=== PATIENT | male | born 1950 | race Caucasian/White ===

== ENCOUNTER 2019-06-28 13:35 | Observation (INO) | payer MEDICARE, OTHER ==
[~2019-06-28 13:35] MED LIST: Acetaminophen 325 MG TAB PO PRN; Ondansetron ODT 4 MG TAB SL PRN; Ondansetron PF 4 MG/2 ML Vial IVP PRN
[2019-06-28] MEDS ORDERED: HYDROcodone/Acetaminophen 5/325 mg Tablet PO PRN (16:23)
[2019-06-28] MEDS ORDERED: HYDROcodone/Acetaminophen 7.5/325 mg Tablet PO PRN (16:23)
[2019-06-28] MEDS ORDERED: Loperamide HCl 2 MG CAP PO PRN (16:23)
[2019-06-28] MEDS ORDERED: Calcium Carbonate 500 MG ChewTAB PO PRN (16:23)
[2019-06-28] MEDS ORDERED: Bisacodyl 5 MG TAB PO PRN (16:23)
[2019-06-28 16:27] LABS: Troponin I 0.027 ng/mL (< 0.028)
[2019-06-28] MEDS ORDERED: Benzonatate 100 MG CAP PO PRN (16:27)
[2019-06-28] MEDS ORDERED: Melatonin 3 MG TAB PO PRN (16:27)
[2019-06-28] MEDS ORDERED: Labetalol HCl 100 MG/20 ML VIAL SLOW IVP PRN (16:27)
[2019-06-28] MEDS ORDERED: Docusate 100 MG CAP PO PRN (16:27)
[2019-06-28] MEDS ORDERED: diphenhydrAMINE 25 MG CAP PO PRN (16:27)
[2019-06-28 17:48] VITALS: BMI 19.9
--- NOTE | 2019-06-28 18:22 | PDOC.HHP ---
Hospitalist HPI - History of Present Illness Shortness of breath History of Present Illness: Very pleasant 69-year-old gentleman with past medical history of extensive tobacco use presents with shortness of breath. For the past couple weeks patient has had worsening lower extremity edema, for this he went to see his primary care physician who started him on Lasix and potassium which he has been on for about a week. After the patient did not see any significant improvement in his lower extremity edema he was concerned and came to the hospital for further evaluation. Patient is also scheduled to see a performance analyst around the first of July. Patient has no prior history of coronary disease, has never had heart failure before, has never had any issues with his heart and denies heart attack or stents. Patient denies ever having echocardiogram. Patient presented to [place] emergency department with shortness of breath requiring supplemental oxygen and was found to be hypokalemia with potassium of 2.2. Patient with elevated D dimer underwent CT scan of the chest which was found to be abnormal for a spiculated lesion in the left upper chest, and liver lesions as well concerning for metastatic disease. Patient started smoking prior to age 18 and quit in 2016, roughly 1.5 packs per day giving him a year history of 70 pack years. The patient was transferred to [facility] for higher level of care. I find the patient on the medical unit with telemetry he is sitting upright in the bed breathing comfortably on low-flow nasal cannula in no acute distress. Patient does get short of breath when he talks in long sentences. Patient states that his legs have gone down some and swelling. Patient is concerned about a horse voice. Patient admitted to the medical unit with telemetry for close management. Will request input from cardiology and oncology for further recommendations. Hospitalist ROS - Review of Systems All other systems reviewed; all pertinent +/- noted in HPI/Subj Hospitalist History - Past Medical History Source: patient, old records Cardiac: reports: no pertinent history Pulmonary: reports: no pertinent history SHRUB GROWER: reports: no pertinent history Gastrointestinal: reports: no pertinent history Heme/Onc: reports: no pertinent history Hepatobiliary: reports: no pertinent history Psych: reports: no pertinent history Musculoskeletal: reports: no pertinent history Rheumatologic: reports: no pertinent history Infectious Disease: reports: no pertinent history ENT: reports: no pertinent history Renal/: reports: no pertinent history Endocrine: reports: no pertinent history Dermatology: reports: no pertinent history - Past Surgical History Past Surgical History: reports: Appendectomy - Family History Family History: reports: hypertension - Social History Smoking Status: Former smoker Tobacco Type: cigarettes (70 pack year history) Alcohol: reports: None Drugs: reports: none Living Situation: Alone Domestic Violence: Negative Activity level: independent ambulation - Exam General Appearance: NAD, awake alert General - other findings: Thin Eye: PERRL ENT: normocephalic atraumatic, moist mucosa Neck: supple, symmetric, no lymphadenopathy Heart: no murmur, no gallops, no rubs Respiratory: CTAB, no wheezes, no ronchi, normal chest expansion, no tachypnea, rales (few faint) Gastrointestinal: non-tender, no guarding, no rigidity Extremities: 2+ LE edema Skin: no rashes Neurological: cranial nerve grossly intact, no focal deficits Musculoskeletal: generalized weakness Psychiatric: normal affect, normal behavior, A&O x 3 Hospitalist Results - Labs Lab results: Troponin I 0.027 ng/mL (< 0.028) 06/28/19 15:45 Hospitalist H&P A/P - Problem (1) Lung mass Code(s): R91.8 - OTHER NONSPECIFIC ABNORMAL FINDING OF LUNG FIELD Status: Acute (2) Liver mass Code(s): R16.0 - HEPATOMEGALY, NOT ELSEWHERE CLASSIFIED Status: Acute (3) Shortness of breath Code(s): R06.02 - SHORTNESS OF BREATH Status: Acute (4) Acute respiratory failure Code(s): J96.00 - ACUTE RESPIRATORY FAILURE, UNSP W HYPOXIA OR HYPERCAPNIA Status: Acute (5) Tobacco abuse Code(s): Z72.0 - TOBACCO USE Status: Acute (6) Hypokalemia Code(s): E87.6 - HYPOKALEMIA Status: Acute (7) Pericardial effusion Code(s): I31.3 - PERICARDIAL EFFUSION (NONINFLAMMATORY) Status: Acute (8) CHF (congestive heart failure) Code(s): I50.9 - HEART FAILURE, UNSPECIFIED Status: Acute (9) Leg edema Code(s): R60.0 - LOCALIZED EDEMA Status: Acute - Plan Plan: Plan: Admit to medical unit with telemetry cardiology consultation, recommendations appreciated oncology consultation, recommendations appreciated supplemental oxygen to maintain O2 saturation greater than 88% IV Lasix echocardiogram continuous telemetry to monitor for arrhythmia repeat chest imaging in the a.m. with the chest x-ray request full CT chest report from [place] left upper chest spiculated lesion, patient will need tissue biopsy to confirm diagnosis. Liver would be a preferable target for nodules concerning for metastatic disease patient started smoking before he was 18, 1.5 pack per day and quit in 2016 giving him a [address] scan chest negative for PE, positive for small pericardial effusion, rapid bedside ultrasound per ED physician was without tamponade physiology patient will likely require outpatient follow-up with oncology in the near future, he is interested in aggressive measures the patient being on Lasix states that he is only able to "dribble urine" and has difficulty getting a good stream of urine, has not been formally diagnosed with BPH in the past start Flomax patient's father had a history of prostate cancer throat lozenge for horse voice blood pressure control blood sugar control G.I. prophylaxis DVT prophylaxis Disposition: Prognosis guarded, concerns for late stage malignancy. Will need tissue sample for definitive diagnosis. Patient wishing to be full code and wants all aggressive measures.
[2019-06-28 18:46] LABS: Troponin I 0.029 ng/mL (< 0.028)
[2019-06-28] MEDS ORDERED: Potassium Chloride 20 MEQ TAB PO SCH (20:30)
[2019-06-28] MEDS ORDERED: Potassium Chloride 40 MEQ in Sodium Chloride 0.9% 250 ML 250 ML IVPB SCH (21:00)
[2019-06-28 21:15] LABS: BUN (Urea Nitrogen) 21 mg/dL (8.4-25.7); Calc. Creatinine Clearance 88 mL/min (70-130); Calcium 8.8 mg/dL (7.8-10.44); Estimated GFR-MDRD Greater than 90; Glucose 78 mg/dL (80-115); Magnesium 2.3 mg/dL (1.6-2.6)
[2019-06-28 21:24] LABS: Anion Gap 19 mmol/L (10-20); Carbon Dioxide 35 mmol/L (23-31); Chloride 96 mmol/L (98-107); Sodium 147 mmol/L (136-145)
[2019-06-28] MEDS: Famotidine 20 MG TAB PO SCH (23:00)
[2019-06-28] MEDS: Heparin 5,000 UNITS/ML VIAL SC SCH (23:00)
[2019-06-28] MEDS: Tamsulosin HCl 0.4 MG CAP PO SCH (23:01)
[2019-06-29] MEDS: Potassium Chloride 20 MEQ in Premix Bag 1 BAG IVPB SCH ×2 (05:39→07:46)
[2019-06-29] MEDS ORDERED: Furosemide 40 MG/4 ML VIAL SLOW IVP SCH (06:00)
[2019-06-29 06:01] LABS: Anion Gap 14 mmol/L (10-20); BUN (Urea Nitrogen) 26 mg/dL (8.4-25.7); Calc. Creatinine Clearance 80 mL/min (70-130); Calcium 9.1 mg/dL (7.8-10.44); Carbon Dioxide 36 mmol/L (23-31); Chloride 99 mmol/L (98-107); Estimated GFR-MDRD Greater than 90; Glucose 118 mg/dL (80-115); Potassium 3.8 mmol/L (3.5-5.1); Sodium 145 mmol/L (136-145)
[2019-06-29] MEDS: Famotidine 20 MG TAB PO SCH ×2 (08:07→20:09)
[2019-06-29] MEDS: Potassium Chloride 20 MEQ TAB PO SCH ×2 (08:20→16:00)
[2019-06-29] MEDS: Heparin 5,000 UNITS/ML VIAL SC SCH ×2 (08:21→15:54)
--- NOTE | 2019-06-29 08:31 | RAD ---
CHEST ONE VIEW: HISTORY: Generalized weakness. Low potassium. COMPARISON: 05/23/2011 FINDINGS: Heart size is within normal limits. There are some minimal patchy parenchymal changes in the left upp er lobe, in a somewhat linear distribution. No significant pleural effusion. There is some fullness o f the right paratracheal region, more prominent than on the prior exam, Possibly some type of adenopa thy certainly cannot be excluded. IMPRESSION: 1. Somewhat linear parenchymal change in the left upper lobe raising the possibility of pneumonia, 2. Prominent right paratracheal soft tissue fullness, possibly related to some adenopathy or underlyi ng mass. Consider non-emergent follow-up chest CT scan for further assessment. POS: SJNOHEMY
[2019-06-29] MEDS ORDERED: Prevnar 13-Val Conj/PF 0.5 ML SYRINGE IM ONE (09:00)
--- NOTE | 2019-06-29 14:13 | ULT ---
EXAM: Bilateral lower extremity venous Doppler HISTORY: Bilateral lower extremity edema. FINDINGS: Grayscale, color-flow, Doppler evaluation, spectral analysis of the bilateral lower extremity venous structures is performed with 2-D imaging. The bilateral common femoral, superficial femoral, popliteal, posterior tibial, proximal greater saphenous and profunda femoral veins are imaged. There is normal luminal compressibility, flow, and augmentation in the visualized deep venous structu res of the bilateral lower extremities. Minimal subcutaneous edema is seen in distal bilateral lower extremities. IMPRESSION: No evidence of a deep vein thrombosis in the visualized deep venous structures bilateral lower extrem ities.
--- NOTE | 2019-06-29 14:33 | PDOC.HOSPP ---
- Subjective Subjective: Seen and examined. Overall feeling better. Breathing comfortably on room air. Still with lower extremity edema that he states has improved. He has been "urinating a lot" with IV Lasix. Discussed liver biopsy, time was given for questions, all answered in detail. Patient is happy with plan of care. - Objective Vital Signs & Weight: Vital Signs (12 hours) Temp Pulse Resp BP Pulse Ox 06/29/19 12:00 97.5 F L 94 20 137/78 97 06/29/19 08:00 98.1 F 101 H 18 135/77 95 06/29/19 03:03 98 F 81 20 129/73 92 L Weight Weight 143 lb I&O: 06/28/19 06/29/19 06/30/19 06:59 06:59 06:59 Intake Total 1180 Output Total 500 500 Balance 680 -500 Result Diagrams: 06/29/19 05:01 Radiology Reviewed by me: Yes Hospitalist ROS - Review of Systems All other systems reviewed; all pertinent +/- noted in HPI/Subj - Medication Medications: Active Medications Generic Name Dose Route Start Last Admin Trade Name Freq PRN Reason Stop Dose Admin Benzonatate 100 mg 06/28/19 16:27 06/29/19 08:29 Tessalon PO 100 mg Q4H PRN Administration Cough Famotidine 20 mg 06/28/19 21:00 06/29/19 08:07 Pepcid PO 20 mg BID RAGHAV Administration Heparin Sodium (Porcine) 5,000 units 06/28/19 21:00 06/29/19 08:21 Heparin SC 5,000 units TID RAGHAV Administration Potassium Chloride 20 meq 06/29/19 08:00 06/29/19 08:20 K-Dur PO 20 meq BID-WM RAGHAV Administration Sodium Chloride 10 ml 06/29/19 09:00 06/29/19 08:21 Flush - Normal Saline IVF 10 ml Q12HR RAGHAV Administration Tamsulosin HCl 0.4 mg 06/28/19 21:00 06/28/19 23:01 Flomax PO 0.4 mg HS RAGHAV Administration - Exam General Appearance: NAD, awake alert Eye: PERRL ENT: normocephalic atraumatic, moist mucosa Neck: supple, symmetric, no lymphadenopathy Heart: RRR, no murmur, no gallops, no rubs, normal peripheral pulses Respiratory: no wheezes, no ronchi, normal chest expansion, no tachypnea, rales Gastrointestinal: soft, non-tender, no guarding, no rigidity Extremities: 2+ LE edema Skin: no lesions, no rashes Neurological: cranial nerve grossly intact, no focal deficits Musculoskeletal: normal strength, no muscle wasting Psychiatric: normal affect, normal behavior, A&O x 3 Hosp A/P (1) Lung mass Code(s): R91.8 - OTHER NONSPECIFIC ABNORMAL FINDING OF LUNG FIELD Status: Acute (2) Liver mass Code(s): R16.0 - HEPATOMEGALY, NOT ELSEWHERE CLASSIFIED Status: Acute (3) Shortness of breath Code(s): R06.02 - SHORTNESS OF BREATH Status: Acute (4) Acute respiratory failure Code(s): J96.00 - ACUTE RESPIRATORY FAILURE, UNSP W HYPOXIA OR HYPERCAPNIA Status: Acute (5) Tobacco abuse Code(s): Z72.0 - TOBACCO USE Status: Acute (6) Hypokalemia Code(s): E87.6 - HYPOKALEMIA Status: Acute (7) Pericardial effusion Code(s): I31.3 - PERICARDIAL EFFUSION (NONINFLAMMATORY) Status: Acute (8) CHF (congestive heart failure) Code(s): I50.9 - HEART FAILURE, UNSPECIFIED Status: Acute (9) Leg edema Code(s): R60.0 - LOCALIZED EDEMA Status: Acute - Plan Plan: medical unit with telemetry cardiology consultation, recommendations appreciated oncology consultation, recommendations appreciated oncology recommending liver biopsy in the a.m., will need tissue sample for definitive diagnosis to establish treatment plan NPO past midnight supplemental oxygen to maintain O2 saturation greater than 88% IV Lasix echocardiogram continuous telemetry to monitor for arrhythmia chest x-ray reviewed CT scan report in the paper chart from [place] left upper chest speculated lesion liver nodules concerning for metastatic disease patient with 70 pack year history of tobacco abuse, quit [address] scan of the chest negative for pulmonary embolism, positive for small pericardial effusion, rapid bedside ultrasound per emergency department physician was without tamponade physiology patient urinating well with the help of Flomax patient's father has a history of prostate cancer throat lozenge for horse voice blood pressure control blood sugar control G.I. prophylaxis DVT prophylaxis disposition: prognosis guarded, concern for late stage malignancy. Will need tissue biopsy for definitive diagnosis and plan of care. Patient wishing to be a full code and wants all aggressive measures. He is interested to chemotherapy , radiation, or immunotherapy as recommended by oncologist.
--- NOTE | 2019-06-29 14:58 | CON ---
DATE OF CONSULTATION: HISTORY OF PRESENT ILLNESS: The patient is an unfortunate 69-year-old gentleman who presented with dyspnea and lower extremity swelling. He recently noticed that his legs were swelling. He went to a primary care physician who put him on antibiotics and diuretics. He presented to the emergency room yesterday with increasing shortness of breath. The patient denied having any chest discomfort. PAST MEDICAL HISTORY: None. PAST SURGICAL HISTORY: Appendectomy. SOCIAL HISTORY: Former smoker. FAMILY HISTORY: Positive family history of heart disease. Father had coronary artery bypass surgery. ALLERGIES: NONE. MEDICATIONS: 1. Lasix 20 b.i.d. 2. Aspirin 81 daily. 3. Potassium 10 daily. REVIEW OF SYSTEMS: Ten-point system, otherwise, unremarkable. PHYSICAL EXAMINATION: GENERAL: Ill-appearing gentleman. VITAL SIGNS: Blood pressure 135/77, heart rate is 110. NECK: Full. LUNGS: Diminished breath sounds bilaterally. HEART: Regular rate and rhythm. Normal S1, S2. No murmurs. ABDOMEN: Nondistended. EXTREMITIES: Show moderate bilateral edema. VASCULAR: Radial pulses are 2+. LABORATORY DATA: Sodium 145, potassium 3.8, chloride 99, bicarbonate 36, BUN 26 , and creatinine is 0.8. Hemoglobin is 12.7, hematocrit 38.9. BNP was 302. EKG : normal sinus rhythm with left ventricular hypertrophy and Q-waves suggestive of a previous inferior infarct. CT scan revealed evidence of a pulmonary mass and several lesions in the liver. IMPRESSION: 1. Shortness of breath. 2. Metastatic carcinoma. 3. History of tobacco abuse. PLAN: This unfortunate gentleman appears to have metastatic carcinoma. He is to undergo a biopsy tomorrow. From a cardiac standpoint, he did not appear to be in congestive heart failure. We will check the patient's echocardiogram to evaluate his left ventricular function and a noted pericardial effusion. We will also order a venous ultrasound to rule out DVT. I will follow this patient with you through his hospitalization. Job ID: [id number] [facility]
[2019-06-29] MEDS: Cepastat Lozenges 1 LOZ PO PRN (17:29)
[2019-06-29] MEDS: Tamsulosin HCl 0.4 MG CAP PO SCH (20:09)
[2019-06-30 05:18] LABS: INR-International Normal Ratio 1.2
[2019-06-30] MEDS: Potassium Chloride 20 MEQ TAB PO SCH ×2 (08:37→16:36)
[2019-06-30] MEDS: Famotidine 20 MG TAB PO SCH ×2 (08:37→21:28)
[2019-06-30] MEDS ORDERED: Midazolam HCl 2 mg/2 ml Vial ONE (09:04)
[2019-06-30] MEDS ORDERED: Sodium Bicarbonate 2.5 MEQ/5 ML VIAL ONE (09:04)
[2019-06-30] MEDS ORDERED: Fentanyl 100 MCG/2 ML VIAL ONE (09:04)
--- NOTE | 2019-06-30 10:49 | CT ---
Exam: CT-GUIDED PERCUTANEOUS BIOPSY OF THE LIVER: HISTORY: Multiple hepatic masses. COMPARISON: Outside CT performed at [facility] 06/29/2019. FINDINGS: Successful CT-guided biopsy of a right hepatic lobe mass. A total of two 18-gauge core biopsy samples were obtained. Lesional tissue was present. No immediate or postprocedural complications. TECHNIQUE: Consent obtained to perform a CT-guided biopsy of a right hepatic lobe mass. Patient abdomen was prep ped and draped in a sterile fashion. 1% lidocaine, buffered with sodium bicarbonate was used for local anesthesia. Under CT guidance, a 17-gauge metallic trocar was advanced into the right hepatic l obe. Through the metallic trocar, a total of two 18-gauge core biopsy samples were obtained. Lesional tissue was present. Patient tolerated the procedure well. No immediate or postprocedural com plications. Postprocedure CT demonstrated changes compatible with biopsy. IMPRESSION: Successful CT-guided biopsy. Final pathologic diagnosis is pending. Transcribed Date/Time: 06/30/2019 11:11 AM
[2019-06-30] MEDS: Cepastat Lozenges 1 LOZ PO PRN (21:28)
[2019-06-30] MEDS: Tamsulosin HCl 0.4 MG CAP PO SCH (21:28)
--- NOTE | 2019-06-30 21:32 | CON ---
DATE OF CONSULTATION: REASON FOR CONSULT: Metastatic disease. HISTORY OF PRESENT ILLNESS: Mr. Ojeda is a 69-year-old gentleman who presented to the [place] with lower extremity edema x3 weeks. He also had hoarseness of breath that started around the same time. He has been having difficulty urinating, some shortness of breath, and increasing cough. In the emergency room, he underwent a chest x-ray, which showed a nodular density in the left upper lobe. He then underwent a CT scan. There was a 6.2 x 3.2 conglomeration of lymph nodes in the subcarinal region. There was a 5.1 x 2 x 1.6 left upper lobe spiculated mass. There was a 2.7 cm lesion in the right lobe of the thyroid. There was a liver mass that is poorly incompletely seen, so he underwent a CT of the abdomen and pelvis. In the left lobe, there was a 13.1 x 7.7 lesion and in the right liver lobe there was a 15 x 11.8 lesion. There was a right adrenal nodule measuring 2.6 and 2 other separate adrenal nodules. There are enlarged periaortic lymph nodes. There is trace free fluid in the upper abdomen. The patient was transferred to this facility for further workup. He underwent a liver biopsy this morning. He has a 35-bvew-ocda history of smoking, quit in 2016. He denies any hemoptysis or weight loss. No night sweats. He had a colonoscopy over 15 years ago and never returned. On this admission, he has had a negative venogram and an echocardiogram which showed diastolic dysfunction with preserved EF. PAST MEDICAL HISTORY: Tobacco use. PAST SURGICAL HISTORY: Appendectomy. ALLERGIES: NO KNOWN DRUG ALLERGIES. HOME MEDICATIONS: 1. Ecotrin 81 mg daily. 2. Lasix 20 mg b.i.d. 3. Potassium 10 mEq daily. 4. Multivitamin. FAMILY HISTORY: No history of cancer. SOCIAL HISTORY: He is single, lives alone. No current alcohol, tobacco, or illicit drug use. He had 70-pack history of smoking. REVIEW OF SYSTEMS: A 10-point review of systems is negative except for noted in HPI. PHYSICAL EXAMINATION: VITAL SIGNS: Temperature is 97.9, pulse is 80, respiratory rate 24, blood pressure is 140/71. He is 94% on room air. GENERAL: This is a thin male, in no acute distress. HEENT: Normocephalic, atraumatic. Pupils are equal and reactive to light. NECK: Supple. CV: Regular rate and rhythm. LUNGS: He has expiratory wheezes throughout. ABDOMEN: Distended. He has a palpable liver. Bowel sounds are positive. EXTREMITIES: He has 2 to 3+ bilateral lower extremity edema. SKIN: No rash. HEMATOLOGICAL: No petechiae or purpura. NEUROLOGICAL: Nonfocal. PERTINENT LABS AND X-RAYS: WBCs are 10.5, hemoglobin 12.7, hematocrit 38.9, platelet count is 244,000. He has 89% neutrophils, 6% lymphs. BNP is 302. Sodium 146, potassium 2.2, chloride 98, CO2 is 44, BUN is 24, creatinine 1. Serum total protein is 6.5, albumin 3, globulin 3.5, calcium 9, bilirubin 1, AST is 83, ALT is 96, alkaline phosphatase is 155. Magnesium 2.1. Radiology: Per HPI. ASSESSMENT: Metastatic disease, likely stage IV lung cancer. DISCUSSION: The patient had a liver biopsy this morning. Path is currently pending. He states he is at his baseline and denies any significant shortness of breath. He would like to go home tomorrow morning and to follow up in our clinic in the outpatient setting. We discussed briefly treatment options including chemoimmunotherapy with or without radiation. He will follow up in our clinic next Sunday and likely have a PET scan in the outpatient setting. Thank you for the consult. We will be happy to care for this pleasant gentleman. Job ID: [id number] [facility]
--- NOTE | 2019-06-30 21:38 | PDOC.HOSPP ---
- Subjective Encounter Date: 06/30/19 Subjective: Feels ok. Tolerated the biopsy well. No other complaints. Breathing is at baseline. - Objective Vital Signs & Weight: Vital Signs (12 hours) Temp Pulse Resp BP BP Pulse Ox 06/30/19 20:00 98.1 F 84 16 139/69 95 06/30/19 16:28 97.8 F 81 20 133/73 97 06/30/19 12:01 97.9 F 80 24 H 140/71 94 L 06/30/19 10:10 97.8 F 80 17 146/72 H 93 L Weight Admit Weight 143 lb Weight 143 lb I&O: 06/29/19 06/30/19 07/01/19 06:59 06:59 06:59 Intake Total 1180 1430 480 Output Total 500 1650 425 Balance 680 -220 55 Result Diagrams: 06/29/19 05:01 Hospitalist ROS - Medication Medications: Active Medications Generic Name Dose Route Start Last Admin Trade Name Freq PRN Reason Stop Dose Admin Benzonatate 100 mg 06/28/19 16:27 06/29/19 08:29 Tessalon PO 100 mg Q4H PRN Administration Cough Famotidine 20 mg 06/28/19 21:00 06/30/19 21:28 Pepcid PO 20 mg BID RAGHAV Administration Potassium Chloride 20 meq 06/29/19 08:00 06/30/19 16:36 K-Dur PO 20 meq BID-WM RAGHAV Administration Sodium Chloride 10 ml 06/29/19 09:00 06/30/19 21:28 Flush - Normal Saline IVF 10 ml Q12HR RAGHAV Administration Tamsulosin HCl 0.4 mg 06/28/19 21:00 06/30/19 21:28 Flomax PO 0.4 mg HS RAGHAV Administration Throat Lozenges 1 montserrat 06/28/19 18:13 06/30/19 21:28 Cepastat Lozenges PO 1 montserrat Q2H PRN Administration Sore Throat - Exam General Appearance: NAD, awake alert ENT - other findings: Hoarse voice. Heart: RRR, no murmur, no gallops, no rubs, normal peripheral pulses Respiratory: CTAB, no wheezes, no rales, no ronchi, normal chest expansion, no tachypnea, normal percussion Gastrointestinal: soft, non-tender, non-distended, normal bowel sounds, no palpable masses, no hepatomegaly, no splenomegaly, no bruit Extremities: 1+ LE edema Skin: normal turgor Musculoskeletal: normal tone Psychiatric: normal affect, normal behavior, A&O x 3 Hosp A/P (1) Leg edema Code(s): R60.0 - LOCALIZED EDEMA Status: Acute (2) Liver mass Code(s): R16.0 - HEPATOMEGALY, NOT ELSEWHERE CLASSIFIED Status: Acute (3) Lung mass Code(s): R91.8 - OTHER NONSPECIFIC ABNORMAL FINDING OF LUNG FIELD Status: Acute (4) Shortness of breath Code(s): R06.02 - SHORTNESS OF BREATH Status: Acute (5) Tobacco abuse Code(s): Z72.0 - TOBACCO USE Status: Acute (6) Hypokalemia Code(s): E87.6 - HYPOKALEMIA Status: Acute (7) Pericardial effusion Code(s): I31.3 - PERICARDIAL EFFUSION (NONINFLAMMATORY) Status: Acute - Plan Doing well. Long discussion regarding the likely diagnosis and prognosis. He will not need to stay in the hospital awaiting the biopsy results. He will need further workup and treatment at the onc clinic. Still not completely sure why he has the edema in the LE's. Has some mild diastolic dysfunction and his liver function is not bad considering the lesions. May benefit from diuresis if it becomes more severe.
[2019-07-01] MEDS: Potassium Chloride 20 MEQ TAB PO SCH (08:52)
[2019-07-01] MEDS: Famotidine 20 MG TAB PO SCH (08:53)
[2019-07-01 11:38] VITALS: BP 154/74; TEMP 98
--- NOTE | 2019-07-02 14:00 | DIS ---
DATE OF ADMISSION: 06/28/2019 DATE OF DISCHARGE: 07/01/2019 DISCHARGE DIAGNOSES: 1. Acute respiratory failure with hypoxia. 2. Lung mass. 3. Metastatic disease to the liver. 4. Shortness of breath. 5. Tobacco abuse. 6. Hypokalemia. 7. Pericardial effusion. 8. Peripheral edema. 9. Acute diastolic congestive heart failure. HISTORY OF PRESENT ILLNESS: This patient is a 69-year-old male, who developed some lower extremity edema, sought care through his primary care provider when not getting relieved; however, became short of breath and presented to the emergency department, had an elevated D-dimer and had a CT of the chest, which did not reveal pulmonary embolus, but did reveal spiculated lesion and apparent metastatic disease to the liver. The patient was subsequently transferred to our facility and admitted. HOSPITAL COURSE: The patient had consultation with Cardiology, who felt the patient did not have significant decompensation of heart failure. Lower extremity venous Doppler was obtained, which showed no evidence of DVT. Echocardiogram was obtained, which revealed an EF of 55% to 60% with evidence of diastolic dysfunction. He had CT-guided biopsy of the liver lesion and consultation by Oncology, which recommended outpatient followup in the clinic with PET scan. The patient tolerated the biopsy well, had no further evidence of complications, was able to get up and ambulate around the hospital well without supplemental oxygen and therefore was felt to be stable for discharge to home. PHYSICAL EXAMINATION: VITAL SIGNS: On the day of discharge; temperature is 98.0, pulse 90, respirations 16, O2 saturation 94% on room air, and blood pressure 154/74. GENERAL: He is awake, alert, pleasant, cooperative. HEART: Regular rate and rhythm without murmurs. LUNGS: Clear bilaterally with no wheezes or rales. ABDOMEN: Soft, nontender. The liver was palpable and enlarged, extending past the midline on the left to near the nipple line and it felt a bit nodular on the patient's left-sided extension of the liver. EXTREMITIES: Had persistent 1+ pitting edema. DISPOSITION: The patient was discharged to home in stable condition. DIET: He is to have an unrestricted diet. ACTIVITY: As tolerated. MEDICATIONS: He will be on; 1. Tamsulosin 0.4 mg at bedtime. 2. Aspirin 81 mg daily. 3. Potassium 10 mEq daily. 4. Lasix 20 mg b.i.d. 5. Multivitamin one p.o. daily. DISCHARGE INSTRUCTIONS: He is to follow up with Clark Aguila and Dr. Ocampo at the Oncology Clinic on 07/06 at 1:45 p.m. He can return to the hospital at anytime should he have the need to do so. TIME SPENT: Discharge activities were greater than 30 minutes. Job ID: [id number]
--- NOTE | 2019-07-02 14:04 | CT ---
Exam: CT-GUIDED PERCUTANEOUS BIOPSY OF THE LIVER: HISTORY: Multiple hepatic masses. COMPARISON: Outside CT performed at [facility] 06/29/2019. FINDINGS: Successful CT-guided biopsy of a right hepatic lobe mass. A total of two 18-gauge core biopsy samples were obtained. Lesional tissue was present. No immediate or postprocedural complications. TECHNIQUE: Consent obtained to perform a CT-guided biopsy of a right hepatic lobe mass. Patient abdomen was prep ped and draped in a sterile fashion. 1% lidocaine, buffered with sodium bicarbonate was used for local anesthesia. Under CT guidance, a 17-gauge metallic trocar was advanced into the right hepatic l obe. Through the metallic trocar, a total of two 18-gauge core biopsy samples were obtained. Lesional tissue was present. Patient tolerated the procedure well. No immediate or postprocedural com plications. Postprocedure CT demonstrated changes compatible with biopsy. IMPRESSION: Successful CT-guided biopsy. Final pathologic diagnosis is pending. Transcribed Date/Time: 07/02/2019 2:03 PM
--- NOTE | 2019-07-03 08:55 | PQF ---
KENIA THOMPSON DAVID R MD [id number] CLINICAL DOCUMENTATION CLARIFICATION FORM: POST DISCHARGE Addendum to original discharge summary date: ____ Late entry note date: __ DATE:07/03/2019 ATTN: Hernandez Cortes Please exercise your independent, professional judgment in responding to the clarification form. Clinical indicators are provided on the bottom of this form for your review Final Diagnosis on the Pathology report: Metastatic Small cell carcinoma Based on the pathological findings of Metastatic Small cell carcinoma, is this a confirmed diagnosis for this patient? [ ] Yes, this is a secondary diagnosis for this patient [x ] Other (additional comments): This result was not available during the patient's admission. [ ] Unable to determine For continuity of documentation, please document condition throughout progress notes and discharge summary. Thank You. CLINICAL INDICATORS - SIGNS/ SYMPTOMS / LABS / RESULTS AND LOCATION IN MR H&P p3 06/27 Lung mass H&P p3 06/27 Liver mass H&P p3 06/27 Prognosis guarded, concerns for late malignancy Onco consult p2 06/29 metastatic disease, likely stage IV lung cancer Pathology Report Morphology and immuno profile support the diagnosis of small cell carcinoma Consult p2 06/28 CT scan reviled evidence of a pulmonary mass and several lesions in the liver RISK FACTORS / RESULTS AND LOCATION IN MR H&P p1 06/27 69 year-old Male H&P p24/18 Former Smoker H&P p3 06/27 Acute respirator Failure H&P p3 06/27 Pericardial effusion TREATMENTS / RESULTS AND LOCATION IN MR MAR 06/27 Tessalon 100mg oral MAR 06/27 IVF NS 1L MAY 13 Cepastat Lozenges 1loz oral Liver Biopsy 06/29 Oncology Consult 06/29 Aury Garcia Chest X-ray 06/27 (This form is maintained as a part of the permanent medical record) 2014 [email or web address]. All Rights Reserved [email or web address]
== END 2019-07-01 13:31 | disposition home or self-care (01) ==
LOC: 2NO 14:44 → INTOOBSV 14:44
PROVIDERS: ADMIT Internal Medicine; ATTEND Internal Medicine
PROC: 0FB13ZX Excision of Right Lobe Liver, Percutaneous Approach, Diagnostic (ICD-10-PCS; principal; 2019-07-01)
DX: C78.7 Secondary malignant neoplasm of liver and intrahepatic bile duct (principal); C80.1 Malignant (primary) neoplasm, unspecified; J96.01 Acute respiratory failure with hypoxia; E87.6 Hypokalemia; I31.3 Pericardial effusion (noninflammatory); R60.0 Localized edema; I50.31 Acute diastolic (congestive) heart failure; R91.8 Other nonspecific abnormal finding of lung field; Z87.891 Personal history of nicotine dependence; Z79.82 Long term (current) use of aspirin; Z79.899 Other long term (current) drug therapy
CPT/HCPCS: 36415; 47000; 71045; 77012; 80048; 83735; 84484; 85610; 88307; 88333; 88334; 88341; 88342; 88360; 93306; 93970; G0378; J1644; J1940; J2250; J3010; J3480; J7050

== ENCOUNTER 2019-07-05 16:43 | Inpatient (IN) | payer MEDICARE, OTHER ==
[~2019-07-05 16:43] MED LIST changes: -Acetaminophen 325 MG TAB PO PRN; +Iopamidol-370 76% 500 ML 1 ML ONE; -Ondansetron ODT 4 MG TAB SL PRN; -Ondansetron PF 4 MG/2 ML Vial IVP PRN
[2019-07-05] MEDS ORDERED: Cefepime 2 GM VIAL ONE (17:16)
[2019-07-05] MEDS ORDERED: Vancomycin 1.5 GRAM/300 ML BAG 1.5 GM in Premix Bag 1 BAG IVPB SCH (17:30)
[2019-07-05 17:46] LABS: #Lymphocytes 0.7 thou/uL (1.20-3.40); #Monocytes 0.4 thou/uL (0.11-0.59); #Neutrophils 11.8 thou/uL (1.40-6.50); %Basophils 0.2 % (0.0-1.0); %Eosinophils 0.2 % (0.0-10.0); %Lymphocytes 5.3 % (21.0-51.0); %Monocytes 3.2 % (0.0-10.0); Hemoglobin 9.8 g/dL (14.0-18.0); Mean Platelet Volume 7.9 fL (7.4-10.4); Platelet Count 180 thou/uL (130-400); RBC Distribution Width 14.7 % (11.5-14.5); Red Blood Cell (RBC) Count 2.98 mill/uL (4.70-6.10); White Blood Cell (WBC) Count 12.9 thou/uL (4.8-10.8)
--- NOTE | 2019-07-05 17:50 | RAD ---
Exam: Chest one view HISTORY:Dyspnea. Comparison: 06/29/2019, 05/23/2011 FINDINGS: Cardiac silhouette: Normal Mediastinum: Persistent increased soft tissue density along the right paratracheal region. Aorta: Unremarkable Pulmonary vessels: Normal Costophrenic angles: Clear LUNGS: Persistent opacification in the left upper lobe. Masslike opacity does appear to be present, i ncompletely evaluated. Pneumothorax: None Osseous abnormalities: None IMPRESSION: 1. Persistent fullness of the right paratracheal region. 2. Probable nodule/mass in the left upper lobe, incompletely evaluated. Patient has undergone recent CT-guided liver biopsy and has been diagnosed with non-small cell cancer in the liver, suggesting metastases.
[2019-07-05 18:08] LABS: ALT (SGPT) 75 U/L (8-55); AST (SGOT) 48 U/L (5-34); Albumin 2.8 g/dL (3.4-4.8); Alkaline Phosphatase 130 U/L (40-110); Anion Gap 19 mmol/L (10-20); BUN (Urea Nitrogen) 29 mg/dL (8.4-25.7); Bilirubin, Total 0.7 mg/dL (0.2-1.2); Calc. Creatinine Clearance 0 mL/min (70-130); Carbon Dioxide 28 mmol/L (23-31); Chloride 102 mmol/L (98-107); Estimated GFR-MDRD Greater than 90; Globulin 1.9 g/dL (2.4-3.5); Glucose 120 mg/dL (80-115); Protein, Total 4.7 g/dL (5.8-8.1); Sodium 146 mmol/L (136-145)
[2019-07-05 18:12] LABS: Potassium 2.6 mmol/L (3.5-5.1)
[2019-07-05 18:25] LABS: Bilirubin Negative (Negative); Blood, Urine Negative (Negative); Clarity Clear (Clear); Glucose, Urine (Dipstick) Normal (Negative); Leukocyte Negative Leu/uL (Negative); Nitrite Negative (Negative); Protein, Urine (Dipstick) Negative (Neg-Trace); Urobilinogen Normal mg/dL (Less than 2)
--- NOTE | 2019-07-05 18:52 | CT ---
Exam: CT angiogram of the chest HISTORY: Metastatic small cell cancer to the liver. Dyspnea. COMPARISON: None TECHNIQUE: CT angiogram of the chest is performed in the axial plane. Three-dimensional reformatted i mages are submitted for interpretation FINDINGS: Mediastinum: Extensive mediastinal lymphadenopathy. Enlarged anterior mediastinal lymph node measures 3.1 x 2.4 cm, right paratracheal lymph node measures 3.8 x 2.7 cm, enlarged prevascular lymph node measures 3.9 x 2.1 cm, enlarged precarinal lymph node measures 3.3 x 2.5 cm. HEART: Moderate pericardial fluid. Aorta: No aneurysm or dissection Upper solid abdominal viscera: Multifocal hepatic metastases. Fullness of the left adrenal gland. Ref er to separate abdomen pelvis CT report for further detail Trachea and central bronchi: Patent Pleural spaces: Trace left and small right-sided pleural effusion. Lung parenchyma: Emphysematous changes in both lung apices. No suspicious masses or nodules in the ri ght lung. Spiculated mass in the left upper lobe measuring 1.4 x 1.7 cm based upon the coronal reformatted images, the craniocaudal dimension is 4.2 cm. Pneumothorax: None Osseous structures: No lytic or blastic lesions Pulmonary arteries: Adequate contrast opacification pulmonary arterial system to the level of segment al arteries. No filling defect to suggest pulmonary embolism Thoracic esophagus: Debris in the proximal thoracic esophagus, incompletely evaluated. IMPRESSION: 1. No evidence of pulmonary artery embolus in the level of the segmental arteries 2. Moderate pericardial effusion 3. Multiple hepatic metastases and probable metastatic lesion in the left adrenal gland. 4. Extensive mediastinal lymphadenopathy 5. Spiculated mass in the left upper lobe, likely representing a primary non-small cell tumor. Transcribed Date/Time: 07/05/2019 7:09 PM
[2019-07-05 18:55] LABS: CKMB 1.1 ng/mL (0-6.6)
[2019-07-05] MEDS ORDERED: Potassium Chloride 20 MEQ TAB ONE (19:05)
--- NOTE | 2019-07-05 19:05 | CT ---
CT OF THE ABDOMEN AND PELVIS WITH IV CONTRAST: 07/05/19 INDICATION: History of abdominal pain, inability to urinate; metastatic lung cancer. COMPARISON: CT of the abdomen and pelvis dated 09/11/[address] guided liver biopsy dated 06/30/19. FINDINGS: There is a persistent small right pleural effusion and small pericardial effusion. There are numerous hepatic masses consistent with metastatic disease. The largest seen within the rig ht hepatic dome measuring 15 cm. the lesion that was previously biopsied on a 06/30/19 demonstrates so me peripheral enhancement. No active extravasation is noted. There is now moderate slightly high density fluid filling the abdomen and pelvis with more prominent layered density seen within the lower abdomen suspicious for small amount of hemorrhage mixed with as cites. There is layered gallstones within the gallbladder. There are bilateral adrenal metastatic lesions. There is extensive adenopathy of the upper abdomen consistent with malignant lymphadenopathy. One of the largest is seen within the periportal region measuring 2.1 cm on image 28 of series 3. There is a mildly prominent retrocrural lymph node measuring 8 mm on image 23 of series 3. There are prominent upper paraaortic lymph nodes. There is a small nodule seen just superior to the left kidney measuring 1.2 cm consistent with a retroperitoneal lymph node in the upper abdomen on image 25 of series 3. Pancreas appears within normal limits. The spleen is normal appearing. The kidneys are normal appeari ng. There are moderate calcifications involving the abdominal and pelvic vasculature. There is a Quiñonez catheter in a decompressed bladder. There is a mild amount of retained stool within the colon. the small bowel is of normal caliber. No acute osseous abnormality is evident. There is diffuse anasarca. IMPRESSION: 1. Extensive metastatic disease as seen involving the liver, bilateral adrenal glands as well as extensive malignant lymphadenopathy of the upper abdomen and upper retroperitoneal region. 2. Small amount of hemorrhage mixed with a moderate amount of ascites. Presumed to be related t o patient's recent liver biopsy. No active extravasation noted. 3. Small right pleural effusion and mild anasarca. 4. Small pericardial effusion. 1. POS: BH
[2019-07-05 19:15] LABS: INR-International Normal Ratio 1.2; Prothrombin Time 14.7 SEC (12.0-14.7)
[2019-07-05 19:17] LABS: PTT 21.3 SEC (22.9-36.1)
[2019-07-05 21:01] LABS: Lactic Acid 3.8 mmol/L (0.5-2.2)
[2019-07-05] MEDS ORDERED: CCU Electrolyte Replacement 1 EACH IVPB ONE (22:04)
[2019-07-05] MEDS ORDERED: Sodium Chloride 0.9% 1,000 ML IV SCH (22:30)
[2019-07-05] MEDS ORDERED: PHOS-NAK 1 PKT PACK PO PRN ×2 (22:32)
[2019-07-05] MEDS ORDERED: Magnesium 2 GM/50 ML 2 GM in Premix Bag 1 BAG IVPB PRN (22:32)
[2019-07-05] MEDS ORDERED: CCU ELECTROLYTE REPLACEMENT PROTOCOL FS PRN (22:32)
[2019-07-05] MEDS ORDERED: Potassium Chloride 40 MEQ in Sodium Chloride 0.9% 250 ML 250 ML IVPB PRN (22:32)
[2019-07-05] MEDS ORDERED: Potassium Phosphate 15 MMOL in Sodium Chloride 0.9% 250 ML 250 ML IV PRN (22:32)
[2019-07-05] MEDS ORDERED: Potassium Chloride 20 MEQ TAB PO PRN (22:32)
[2019-07-05] MEDS ORDERED: Magnesium Oxide 400 MG TAB PO PRN ×2 (22:32)
[2019-07-05] MEDS ORDERED: Potassium Phosphate 9 MMOL in Sodium Chloride 0.9% 100 ML IVPB PRN (22:32)
[2019-07-05] MEDS ORDERED: Potassium Chloride 40 MEQ in Premix Bag 1 BAG IVPB PRN (22:32)
[2019-07-05] MEDS ORDERED: Potassium Phosphate 12 MMOL in Sodium Chloride 0.9% 250 ML 250 ML IV PRN (22:32)
[2019-07-05 22:54] LABS: Anion Gap 16 mmol/L (10-20); BUN (Urea Nitrogen) 27 mg/dL (8.4-25.7); Calc. Creatinine Clearance 0 mL/min (70-130); Calcium 7.8 mg/dL (7.8-10.44); Carbon Dioxide 26 mmol/L (23-31); Chloride 104 mmol/L (98-107); Estimated GFR-MDRD Greater than 90; Glucose 95 mg/dL (80-115); Magnesium 2.1 mg/dL (1.6-2.6); Sodium 143 mmol/L (136-145)
[2019-07-05] MEDS ORDERED: NS 0.9% w/ 40 MEQ KCL 1,000 ML IV SCH (23:30)
[2019-07-06] MEDS: Piperacillin/Tazobactam 3.375 GM in Sodium Chloride 0.9% 100 ML IVPB SCH ×5 (00:11→22:34)
[2019-07-06] MEDS: Melatonin 3 MG TAB PO PRN ×2 (00:14→22:33)
--- NOTE | 2019-07-06 00:32 | HP ---
CHIEF COMPLAINT: Abdominal pain. HISTORY OF PRESENT ILLNESS: The patient is a 69-year-old male who recently underwent a liver biopsy on 06/29, presents to the hospital with complaints of worsening abdominal pain and increased abdominal distention going on since for the past few days. The patient actually states that his abdominal distention has been going on since even prior to his biopsy. He denies any fevers or chills at home. He states that he has also noticed worsening swelling of his lower extremity. The patient states that he has no cardiac history. He states that he has been trying to eat, but has not been eating very much. He does not be very hungry. He did have an appointment with his oncologist, Dr. Ocampo and he is supposed to start his treatment on Sunday. The patient is unaware of his pathology results. He also stated that he was having some difficulty times urinating. He denies any nausea, vomiting, or any diarrhea. He did have a bowel movement yesterday. PAST MEDICAL HISTORY: None except for the newly diagnosed cancer. PAST SURGICAL HISTORY: He has had an appendectomy. FAMILY HISTORY: Reports hypertension. SOCIAL HISTORY: He is a former smoker. Smoked a pack and a half a day for many years and quit in 2015. He also had significant alcohol use, he stopped in 2011. Denies any drug use. He is a full code. He lives alone and he has no really family support. REVIEW OF SYSTEMS: All negative except for the ones mentioned above in the HPI. PHYSICAL EXAMINATION: VITAL SIGNS: As of the following; temperature 98.2, heart rate of 111, blood pressure 98/64, 93% on room air. GENERAL: He is awake, alert, and oriented x3. Appears ill. CV: S1 and S2 present. No murmurs, rubs, or gallops. Mildly tachycardic. LUNGS: He has diminished breath sounds to bilateral lower bases, otherwise clear. ABDOMEN: Mild distention. Bowel sounds are present x2. He does have pain upon palpation to his left lower quadrant, right lower quadrant, and umbilical area. EXTREMITIES: He has significant lower extremity pitting edema. NEUROVASCULAR: No focal deficits noted. SKIN: No cuts, lesions, or bruises noted. LABORATORY RESULTS: WBCs were 12.9, hemoglobin of 9.8, prior was 14.1 with a hematocrit of 29.9, his platelets were 180. Chemistry; sodium of 146, potassium of 2.6, BUN of 29, creatinine of 0.82. His lactic acid was 5.3. His AST was 48, ALT is 75, and his alkaline phosphatase was 130 and mildly elevated troponin 0.036. His albumin is 2.8. The patient did have a CTA and abdominal pelvis CT. The CTA did not indicate any pulmonary embolism, just had some moderate pericardial effusion and multiple hepatic masses that were noted. Extensive mediastinal lymphadenopathy was noted. Speculated mass in the left upper quadrant. He did have a CT of abdomen and pelvis, which indicated extensive metastatic disease in bilateral adrenal glands as well as extensive malignant lymphadenopathy in the upper abdomen and upper retroperitoneal region. He had small amount of hemorrhage, mixed with moderate amount of ascites and small pericardial effusion was also noted. ASSESSMENT AND PLAN: The patient is a very pleasant 69-year-old male who initially presented to the hospital with abdominal pain, was found to be hypotensive and responded really well with normal saline bolus. 1. Sepsis. The patient has elevated leukocytosis. He was hypotensive. He also has abdominal pain, unclear etiology at this time. I am not sure if it is transient hypotension. Could be of multiple factors, one from not eating very much, low albumin, also his recent liver biopsy, his hemoglobin dropped from 14 to 9. Could also contribute to his hypotensive. He does have a mild leukocytosis. He denies any fevers. I will treat him as sepsis with broad-spectrum antibiotics, anaerobic coverage. We will also give him another liter of normal saline, he did get 30 mL/kg in the ER. Also, urine culture and blood cultures have been obtained. 2. Anemia. This could be acute blood loss anemia from his recent biopsy. We will continue to monitor and he may require transfusion, but we will monitor it. 3. Lower extremity edema. He did have recently an echocardiogram that was done in earlier this month, which indicated an EF of 55% to 60% and impaired relaxation compared to diastolic dysfunction, mild tricuspid regurgitation, and small pericardial effusion was noted. 4. Lactic acidosis, most likely secondary to his hypotensive. On rechecking his lactic, it was 3.8. 5. Hypokalemia, potassium replaced. 6. Mildly elevated troponins. We will continue to monitor. The patient does not have any chest pain. He was supposed to see Cardiology as an outpatient. We will continue to monitor. 7. Deep venous thrombosis prophylaxis. We will put the patient on subcu Lovenox versus SCDs. Job ID: [id number]
[2019-07-06 04:09] LABS: #Basophils 0.1 thou/uL (0.0-0.2); #Lymphocytes 0.8 thou/uL (1.20-3.40); #Monocytes 0.4 thou/uL (0.11-0.59); #Neutrophils 11.3 thou/uL (1.40-6.50); %Basophils 0.4 % (0.0-1.0); %Eosinophils 0.2 % (0.0-10.0); %Lymphocytes 6.4 % (21.0-51.0); %Monocytes 3.1 % (0.0-10.0); %Neutrophils 89.9 % (42.0-75.0); Hemoglobin 9.4 g/dL (14.0-18.0); Mean Corpuscular HGB CONC 32.8 g/dL (32.0-36.0); Mean Corpuscular Hemoglobin 32.3 pg (27.0-31.0); Mean Corpuscular Volume 98.7 fL (78.0-98.0); Mean Platelet Volume 8.6 fL (7.4-10.4); Platelet Count 182 thou/uL (130-400); RBC Distribution Width 14.7 % (11.5-14.5); Red Blood Cell (RBC) Count 2.89 mill/uL (4.70-6.10); White Blood Cell (WBC) Count 12.5 thou/uL (4.8-10.8)
[2019-07-06 04:36] LABS: ALT (SGPT) 144 U/L (8-55); AST (SGOT) 125 U/L (5-34); Albumin 2.7 g/dL (3.4-4.8); Alkaline Phosphatase 118 U/L (40-110); Anion Gap 16 mmol/L (10-20); BUN (Urea Nitrogen) 29 mg/dL (8.4-25.7); Bilirubin, Total 0.9 mg/dL (0.2-1.2); Calc. Creatinine Clearance 76 mL/min (70-130); Calcium 8.1 mg/dL (7.8-10.44); Carbon Dioxide 28 mmol/L (23-31); Chloride 104 mmol/L (98-107); Estimated GFR-MDRD Greater than 90; Globulin 2.5 g/dL (2.4-3.5); Glucose 98 mg/dL (80-115); Potassium 3.4 mmol/L (3.5-5.1); Protein, Total 5.2 g/dL (5.8-8.1); Sodium 145 mmol/L (136-145)
[2019-07-06] MEDS: Vancomycin 1 GM in Premix Bag 1 BAG IVPB SCH ×2 (05:26→18:12)
[2019-07-06] MEDS ORDERED: Albumin 25% 25 GM/100 ML BOT IVPB SCH (07:05)
[2019-07-06] MEDS ORDERED: Furosemide 40 MG/4 ML VIAL SLOW IVP SCH (07:15)
[2019-07-06 08:15] LABS: Troponin I 0.051 ng/mL (< 0.028)
[2019-07-06] MEDS ORDERED: Prevnar 13-Val Conj/PF 0.5 ML SYRINGE IM ONE (09:00)
[2019-07-06] MEDS: Multivitamin W/ Minerals 1 TAB PO SCH (09:59)
[2019-07-06] MEDS: Potassium Chloride 10 MEQ TAB PO SCH (10:00)
[2019-07-06 11:04] LABS: Lactic Acid 4.9 mmol/L (0.5-2.2)
[2019-07-06] MEDS: Hydrocortisone Sod Succ/PF 100 mg/2 ml Vial IVP SCH ×2 (11:13→17:22)
[2019-07-06] MEDS ORDERED: Sodium Chloride 0.9% 500 ML IV SCH (11:45)
--- NOTE | 2019-07-06 12:54 | CT ---
CT OF THE ABDOMEN WITHOUT IV CONTRAST INDICATION: Follow-up intra-abdominal hemorrhage COMPARISON: CT of the abdomen and pelvis with contrast dated July 05, 2019 FINDINGS: ABDOMEN: Lung bases: Bilateral pleural effusions persist Liver: Hepatic metastatic disease is similar appearing. Gallbladder: Stable cholelithiasis Pancreas: Normal. Adrenal glands: Stable bilateral adrenal metastatic disease Spleen: Normal. Kidneys and ureters: Normal. No hydronephrosis. Vasculature: There are moderate vascular calcifications seen involving the visualized vasculature. Lymph nodes:Lymphadenopathy of the upper abdomen is stable Free fluid in abdomen:The moderate slightly hyperdense fluid involving the abdomen is stable. Osseous structures: No acute osseous abnormality. No destructive osteolytic or osteoblastic lesion i s identified. There is scattered degenerative and osteoarthritic changes. Soft tissues:Persistent anasarca IMPRESSION: 1. Stable moderate free fluid within the abdomen. 2. Other stable findings as above
--- NOTE | 2019-07-06 14:08 | PDOC.HOSPP ---
- Subjective Encounter Date: 07/06/19 Encounter Time: 10:00 Subjective: Patient reports persistent abd pain that started after liver biopsy. Abd was distended before that. Pt became hypotensive to 70 with worsening lactic acidosis - Objective Vital Signs & Weight: Vital Signs (12 hours) Temp Pulse Ox 07/06/19 11:28 97.7 F 07/06/19 07:50 94 L 07/06/19 07:28 98.7 F Weight Weight 143 lb 14.4 oz Most Recent Monitor Data Heart Rate from ECG 94 NIBP 118/69 NIBP BP-Mean 85 Respiration from ECG 27 SpO2 93 I&O: 07/05/19 07/06/19 07/07/19 06:59 06:59 06:59 Intake Total 480 0 Output Total 375 Balance 105 0 Result Diagrams: 07/06/19 03:28 07/06/19 03:28 Hospitalist ROS - Review of Systems Constitutional: denies: fever, chills ENT: denies: ear discharge Respiratory: denies: cough, dry - Medication Medications: Active Medications Generic Name Dose Route Start Last Admin Trade Name Freq PRN Reason Stop Dose Admin Hydrocortisone Sodium Succinate 50 mg 07/06/19 12:00 07/06/19 11:13 Solu-Cortef IVP 07/13/19 06:01 50 mg Q6HR RAGHAV Administration Piperacillin Sod/Tazobactam 100 mls @ 200 mls/hr 07/05/19 23:00 07/06/19 11: 13 Sod 3.375 gm/ Sodium Chloride IVPB 100 mls 0500,1100,1700,2300 RAGHAV Administration Vancomycin HCl 1 gm/ Device 200 mls @ 200 mls/hr 07/06/19 06:00 07/06/19 05: 26 IVPB 200 mls 0600,1800 RAGHAV Administration Iron/Minerals/Multivitamins 1 tab 07/06/19 09:00 07/06/19 09:59 Theragran M PO 1 tab DAILY RAGHAV Administration Melatonin 6 mg 07/05/19 23:26 07/06/19 00:14 Melatonin PO 6 mg HS PRN Administration Insomnia Potassium Chloride 10 meq 07/06/19 09:00 07/06/19 10:00 Klor-Con 10 PO 10 meq DAILY RGAHAV Administration - Exam General Appearance: NAD, awake alert Eye: PERRL, anicteric sclera ENT: normocephalic atraumatic, no oropharyngeal lesions Neck: no JVD Heart: RRR, no murmur, no gallops, no rubs Respiratory: CTAB, no wheezes, no rales, no ronchi Gastrointestinal: soft, distended Gastrointestinal - other findings: digguse tenderness worst in RUQ Extremities: 2+ LE edema Skin: normal turgor, no lesions, no rashes Hosp A/P - Plan CT abdomen: extensive mets in liver ,bilateral adrenals, extensive malignant lymphadenopathy of the upper abdomen and retroperitoneal region. Small amount of hemorrhage mixed with ascites. Small right pleural effusion and mild anasarca. Small pericardial effusion. Gallstones within the gallbladder Chest X ray: fullness of right paratracheal region. Nodule/mass in the left upper lobe incompletely evaluated CTA chest: no PE, moderate pericardial effusion. Multiple live rmets and met in left adrenal gland. Extensive mediastinal LAD. Spiculated mass left upper lobe. This is a 69 year old who presented with severe abd pain after liver biopsy, found to have extensive liver and adrenal metastases #Metastatic small cell cancer to the liver #Transaminitis #Ascites #Hemorrhagic anemia - patient had CT abdomen showing worsening metastases in the abdomen, adrenal, liver. Liver biopsy 06/29 consistent with metastatic small cell cancer. Original CT showing some hemorrhage and moderate ascites. Repeat hemoglobin dropped to 8. Repeat CT scan 07/05 shows stable ascites. Will order paracentesis - gallstones noted in the gallbladder, no CBD dilation evident. Bilirubin normal so unlikely cholangitis. US abdomen ordered for better evaluation - GI consulted #Hypotension #Lactic acidosis - worsening to 5.9 - albumin given - hydrocortisone started as well - continue antibiotics - repeat ECHO #Moderate pericardial effusion - s/p 40 mg IV lasix - will check ECHO
[2019-07-06 14:10] LABS: Hemoglobin 8.2 g/dL (14.0-18.0); Mean Corpuscular HGB CONC 32.8 g/dL (32.0-36.0); Mean Corpuscular Hemoglobin 32.8 pg (27.0-31.0); Mean Platelet Volume 8.1 fL (7.4-10.4); Platelet Count 154 thou/uL (130-400); RBC Distribution Width 15.2 % (11.5-14.5); Red Blood Cell (RBC) Count 2.49 mill/uL (4.70-6.10); White Blood Cell (WBC) Count 13.8 thou/uL (4.8-10.8)
--- NOTE | 2019-07-06 14:17 | ULT ---
BILATERAL LOWER EXTREMITY VENOUS DOPPLER EVALUATION PROVIDED CLINICAL HISTORY: Bilateral lower extremity edema TECHNIQUE: Grayscale, color doppler and spectral doppler images were obtained of the common femoral , femoral, profunda femoral, popliteal and posterior tibial veins of both lower extremities. FINDINGS: There is normal compression, flow and augmentation seen with the deep venous structures within both l ower extremities. IMPRESSION: No sonographic evidence for lower extremity deep venous thrombosis.
--- NOTE | 2019-07-06 14:21 | ULT ---
RIGHT UPPER QUADRANT ULTRASOUND CLINICAL HISTORY: Right upper quadrant abdominal pain with cholelithiasis. COMPARISON: CT the abdomen and pelvis with contrast dated July 05, 2019 FINDINGS: Liver:There is diffuse hepatic metastatic disease Intrahepatic bile ducts: No intrahepatic or extrahepatic biliary dilation.; Common bile duct: Not well seen. Gallbladder: Multiple small stones. The gallbladder wall measures 1.7 mm. There is pericholecystic fl uid; however, there is mild to moderate ascites within the right upper quadrant of the abdomen. Enamorado's sign:Positive Main portal vein:Patent with hepatopedal flow. Pancreas:Largely obscured Right kidney: Right kidney measures 9.6 x 4.5 x 5.0 cm. No focal renal lesion or hydronephrosis. Additional findings: None. IMPRESSION: 1. Diffuse hepatic metastatic disease. 2. Cholelithiasis with reportedly positive sonographic Enamorado's sign. No gallbladder wall thickening is evident. There is fluid surrounding the left gallbladder; however, there is mild/moderate ascites. Findings are a equivocal by sonography for acute calculus cholecystitis. 3. Mild to moderate ascites.
[2019-07-06 14:34] LABS: Troponin I 0.053 ng/mL (< 0.028)
--- NOTE | 2019-07-06 18:57 | CON ---
DATE OF CONSULTATION: HISTORY OF PRESENT ILLNESS: A 69-year-old unfortunate gentleman who was recently diagnosed to have metastatic carcinoma following a liver biopsy. It is metastatic small cell carcinoma. His CT chest showed a left upper lung lesion, extensive mediastinal adenopathy, primary lung cancer. He is due to start chemo on Sunday, presented with abdominal pain, weakness. Legs are swollen. Poor appetite. Denies any chest pain or difficulty breathing. He has quit smoking 26 years ago. Prior to his recent illness, he was very healthy. PAST MEDICAL HISTORY: hypertension. PAST SURGICAL HISTORY: Appendix, liver biopsy. CHRONIC MEDICATIONS: 1. Flomax 0.4. 2. Lasix 20 b.i.d. 3. Aspirin. ALLERGIES: NONE. SOCIAL AND FAMILY HISTORY: Unremarkable. REVIEW OF SYSTEMS: Ten-point negative. PHYSICAL EXAMINATION: GENERAL: Cachectic gentleman. VITAL SIGNS: Temperature 98, saturations 96 on room air, blood pressure 112/66, pulse 80, respiratory rate 18, 2+ ankle edema. CHEST: Decreased breath sounds. No wheezing. CARDIAC: Normal S1 and S2. No gallops. ABDOMEN: No masses. LABORATORY DATA: Liver functions elevated. Lactic acid 3.8. White count is 12, H and H are 9 and 28. So far, cultures are negative. IMPRESSION: 1. Marked weakness. 2. Extensive small cell bronchogenic carcinoma with evidence of pericardial effusion, multiple hepatic metastases, mediastinal adenopathy, left upper lobe lung mass. 3. Hypertension. PLAN: I agree with the empiric antibiotics and started stress dose of steroids. We will follow. Consultation note, 70 minutes, 50% direct patient care. Job ID: [id number]
--- NOTE | 2019-07-06 20:24 | CON ---
DATE OF CONSULTATION: 07/06/2019 CHIEF COMPLAINT: Abdominal pain. HISTORY OF PRESENT ILLNESS: Mr. Ojeda is a 69-year-old man, who has had gradually worsening pain in the right upper quadrant over the last couple of weeks. He was admitted to the hospital on 06/28/2019, and was found to have large burden of metastatic disease in his liver. He had a CT-guided biopsy of the liver mass on 06/30/2019. 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 He has a 4.7 cm spiculated mass in the left upper lobe of the lung to correlate with this. He has followup scheduled with Oncology as an outpatient. He was readmitted last night with worsening abdominal distention, which is little bit more diffuse and abdominal aching generalized pain, the right upper quadrant pain. He had a CT scan of the abdomen and pelvis performed, which showed hyperdense fluid around the liver and some moderate ascites consistent with a hemorrhage from the biopsy site. He has had no nausea or vomiting. No ongoing diarrhea, constipation, or blood in the stool. He was noted to have a drop in his hemoglobin from 14.1 back at the 10 of June down to 9.8 on admission last night and 9.4 on redraw this morning. He was hypotensive this morning with blood pressure as low as 73/54. He was given a dose of IV albumin, and his blood pressure has improved to the 118/64 range. PAST MEDICAL HISTORY: Small cell lung cancer, metastatic widely to the liver. PAST SURGICAL HISTORY: Appendectomy and last week, he had a liver biopsy. FAMILY HISTORY: Negative for GI malignancy. SOCIAL HISTORY: He smoked a pack and a half a day for years, but quit in 2015. He had significant alcohol in the past, but quit that in 2011. No drugs. ALLERGIES: NO KNOWN DRUG ALLERGIES. MEDICATIONS: 1. Hydrocortisone. 2. Multiple vitamin. 3. Magnesium. 4. Zosyn. 5. Vancomycin. REVIEW OF SYSTEMS: Negative x10 systems reviewed except as stated in the history of present illness. PHYSICAL EXAMINATION: VITAL SIGNS: Temperature 97.7, blood pressure 118/69, and pulse 94. GENERAL: He is in no acute distress. Alert and oriented x3. HEENT: Eyes have no scleral icterus. Oropharynx is clear without lesions. NECK: No cervical or supraclavicular lymphadenopathy. LUNGS: Clear to auscultation bilaterally. HEART: Regular rate and rhythm without murmur. ABDOMEN: Soft, mildly distended. Bowel sounds are present. EXTREMITIES: Trace lower extremity edema. LABORATORY DATA: Creatinine 0.83, bilirubin 0.9, AST 125, ALT 144, alkaline phosphatase 118, and albumin 2.7. White blood cell count 12.5, hemoglobin 9.4, and platelets 182. IMPRESSION: 1. Hemorrhagic ascites with hyperdense fluid in the abdomen, primarily around the liver, but also some in the peritoneum. There does not appear to be signs of acute ongoing hemorrhage as they are based on the imaging findings and also followup CT showing no enlargement of the fluid collection. He has dropped his hemoglobin down compared to earlier in June, and he is being given volume support with albumin and fluid now for hypotension. His blood pressure has improved with that. Treatment for this will just be supportive. He is being covered with broad-spectrum antibiotics. His blood cultures from last night are negative so far. a. RECOMMENDATIONS: I. Supportive care for hemorrhagic ascites. Volume support for the hypotension has improved his blood pressure. Recheck his hemoglobin in the morning. Transfusion can be given as necessary; however, currently it does not appear that he needs one. The bleeding does not appear to be ongoing significantly based on followup imaging and the density of the fluid. II. He did have cholelithiasis noted by CT scan, but there is no reason to think that he suddenly developed cholecystitis or choledocholithiasis at this time. His bilirubin is normal. His alkaline phosphatase is minimally elevated. He has diffuse involvement of the liver with metastatic disease. 2. Small cell lung cancer, metastatic to the liver. a. RECOMMENDATIONS: I. Supportive care and monitoring of his hemoglobin. No intervention should be required at this point for the hemorrhagic ascites from the liver biopsy. II. Primary service is evaluating for other signs of sepsis and covering with broad-spectrum antibiotics as well. Blood cultures are negative so far. I will sign off for now. Please call if GI can be of assistance. Job ID: [id number]
[2019-07-06] MEDS: Tamsulosin HCl 0.4 MG CAP PO SCH (20:44)
[2019-07-06 21:42] LABS: Lactic Acid 3.5 mmol/L (0.5-2.2)
[2019-07-07] MEDS: Hydrocortisone Sod Succ/PF 100 mg/2 ml Vial IVP SCH ×5 (00:32→23:29)
[2019-07-07 04:11] LABS: Hemoglobin 7.9 g/dL (14.0-18.0); Mean Corpuscular HGB CONC 32.7 g/dL (32.0-36.0); Mean Corpuscular Hemoglobin 32.1 pg (27.0-31.0); Mean Platelet Volume 8.3 fL (7.4-10.4); Platelet Count 175 thou/uL (130-400); RBC Distribution Width 14.9 % (11.5-14.5); Red Blood Cell (RBC) Count 2.46 mill/uL (4.70-6.10); White Blood Cell (WBC) Count 14.3 thou/uL (4.8-10.8)
[2019-07-07 04:28] LABS: ALT (SGPT) 168 U/L (8-55); AST (SGOT) 110 U/L (5-34); Albumin 3.3 g/dL (3.4-4.8); Alkaline Phosphatase 121 U/L (40-110); Anion Gap 16 mmol/L (10-20); BUN (Urea Nitrogen) 36 mg/dL (8.4-25.7); Bilirubin, Total 0.9 mg/dL (0.2-1.2); Calc. Creatinine Clearance 57 mL/min (70-130); Calcium 8.6 mg/dL (7.8-10.44); Carbon Dioxide 29 mmol/L (23-31); Chloride 104 mmol/L (98-107); Estimated GFR-MDRD 65; Glucose 134 mg/dL (80-115); Protein, Total 5.3 g/dL (5.8-8.1); Sodium 146 mmol/L (136-145)
[2019-07-07 04:31] LABS: Potassium 2.7 mmol/L (3.5-5.1)
[2019-07-07] MEDS: Piperacillin/Tazobactam 3.375 GM in Sodium Chloride 0.9% 100 ML IVPB SCH ×4 (05:19→23:29)
--- NOTE | 2019-07-07 09:03 | ULT ---
EXAM: US Abdomen Limited CLINICAL HISTORY: Evaluate for ascites. Metastatic small cell cancer. COMPARISON: None. FINDINGS: Targeted sonographic imaging of all 4 quadrants demonstrates a small amount of ascites in t he perihepatic space. The amount of fluid does not warrant paracentesis at this time. IMPRESSION: Small amount of ascites, not warranting paracentesis
[2019-07-07] MEDS ORDERED: Albumin 25% 25 GM/100 ML BOT IVPB ONE (09:06)
[2019-07-07] MEDS ORDERED: Potassium Chloride 20 MEQ TAB PO SCH (09:15)
--- NOTE | 2019-07-07 09:29 | PRG ---
DATE OF SERVICE: 07/07/2019 OBJECTIVE: VITAL SIGNS: Temp is 97, . CHEST: Decreased breath sounds. No wheezing. CARDIAC: Normal S1, S2. LABORATORY DATA: White count 14,000. Lytes are normal. Liver function elevated. ASSESSMENT: 1. Extensive metastatic small cell carcinoma. Unclear whether he is going to get chemo today. 2. Hypertension. . 3. Continue broad-spectrum antibiotics and deescalate once cultures are back. We will follow. Job ID: [id number]
[2019-07-07] MEDS ORDERED: Magnevist 469MG/ML 20 ML VIAL ONE (09:34)
[2019-07-07] MEDS: Multivitamin W/ Minerals 1 TAB PO SCH (10:30)
[2019-07-07] MEDS: Potassium Chloride 10 MEQ TAB PO SCH (10:30)
--- NOTE | 2019-07-07 10:31 | CON ---
DATE OF CONSULTATION: REASON FOR CONSULTATION: Small cell lung cancer. HISTORY OF PRESENT ILLNESS: A 69-year-old male with history of small cell lung cancer with metastatic disease to liver and adrenal glands and diffuse lymphadenopathy, presenting to the hospital with worsening abdominal pain for last few days. The patient was just recently diagnosed and had a liver biopsy on June 29 and has been having worsening pain since then. I saw the patient in clinic on , July 02, and since then, his pain worsened and brought him into the hospital on July 04. He also had worsening swelling in his lower extremities and shortness of breath. He states his shortness of breath is not any worse than normal. He did have a CT abdomen and pelvis that showed known extensive metastatic disease as well as a small amount of hemorrhage and ascites thought to be from recent liver biopsy. He was evaluated by Dr. Verde and no intervention is recommended. He also had an ultrasound today that showed very minimal ascites. The patient has no tenderness on exam and states he feels better with very limited pain at this time. There is also noted that lactic acidosis and low blood pressure with IV albumin and improvement in his lactic acidosis though still high as of yesterday. REVIEW OF SYSTEMS: Ten-point review of systems negative except as per HPI. PAST MEDICAL HISTORY: Small cell lung cancer. PAST SURGICAL HISTORY: Appendectomy. FAMILY HISTORY: High blood pressure. No cancer. SOCIAL HISTORY: Long-term smoker and significant alcohol abuse. Currently stopped both. Lives alone and has a power of litigation attorney, who is his friend, who came with him to clinic last week. PHYSICAL EXAMINATION: VITAL SIGNS: Temperature 97.6, saturating 94% on room air, blood pressure 106/66, and pulse 79. GENERAL APPEARANCE: The patient is lying in bed, in no acute distress. HEENT: Normocephalic and atraumatic. RESPIRATIONS: Nonlabored. CARDIOVASCULAR: No tachycardia is noted. ABDOMEN: Mildly distended without any tenderness. Hepatomegaly is noted. EXTREMITIES: Significant lower extremity edema. NEUROLOGIC: Cranial nerves 2 through 12 are grossly intact. PSYCHIATRIC: Awake, alert, and oriented x3. LABORATORY DATA: White blood cells 14.3, hemoglobin 7.9 down from 9.8 on admission, and platelets 175. Sodium 146, potassium 2.7, BUN 36, creatinine 1.12, lactic acid 3.5, AST 110, ALT 168, ALP 121, and total bilirubin 0.9. ASSESSMENT AND PLAN: A 69-year-old male with small cell lung cancer with metastases to liver and adrenal glands and diffuse lymphadenopathy, presenting to the hospital with diffuse abdominal pain, small liver biopsy-induced hemorrhage, ascites, abdominal swelling, lower extremity swelling, hypotension, and lactic acidosis. The patient has no source of infection, but has been treated with broad-spectrum antibiotics, fluids, and IV albumin with some improvement in his lactic acidosis. This pain is currently very well controlled and does not even have tenderness on exam this morning. The patient has diffuse small cell lung cancer and is very symptomatic, especially from his liver disease. The patient was planned for outpatient treatment and to complete staging this week. However, due to the hospital admission, we will go ahead and do MRI brain and bone scan in the hospital once the patient is stable. I have discussed initiating chemotherapy in the hospital with him with carboplatin plus [employer]-16 and holding Tecentriq, which cannot be acquired as an inpatient. Recommend treatment now as his disease is very aggressive and his performance status will continue to decline if he is not treated urgently. We will try to acquire these medicines today or tomorrow to start treatment. Reviewed the plan with the patient and he agrees. Continue to monitor the patient's condition in the hospital. Job ID: [id number]
[2019-07-07] MEDS ORDERED: ETOPOSIDE IVPB SCH (10:45)
[2019-07-07] MEDS ORDERED: CARBOPLATIN IVPB SCH (10:45)
[2019-07-07] MEDS ORDERED: Pegfilgrastim Onpro 6 MG/0.6 ML SQ SCH (10:45)
[2019-07-07] MEDS ORDERED: PALONOSETRON HCL 0.05 MG/ML 5 ML VIAL IVP SCH (10:45)
[2019-07-07] MEDS ORDERED: SODIUM CHLORIDE 0.9% IVPB SCH ×2 (10:45)
[2019-07-07] MEDS ORDERED: Dexamethasone 10 MG/ML VIAL SLOW IVP SCH (10:45)
--- NOTE | 2019-07-07 12:37 | MRI ---
MRI BRAIN WITH AND WITHOUT CONTRAST: DATE: 07/07/2019 HISTORY: 69-year-old male with small cell lung cancer, staging. COMPARISON: None TECHNIQUE: Multiplanar, multisequence MRI of the brain performed pre- and post-IV injection of gadolinium based contrast agent. FINDINGS: In the upper portion of the left cerebellar hemisphere, there are 2 tiny foci of restricted diffusion . There is faint, patchy, approximately 0.8 cm focal enhancement, involving the more posteriorly located of the 2. In the contralateral right cerebellar hemisphere superiorly, there is a small, faint patchy focus of enhancement measuring approximately 0.8 x 0.8 x 0.8 cm. At the junction between devonte upper portion of the left cerebellum and the left tentorium cerebelli, t here is a thin, short curvilinear focus of enhancement. At the inferior aspect of the cerebellar vermis, there is a faint focus of enhancement (best visualiz ed on sagittal postcontrast sequence). At the far inferior aspect of the right cerebellar hemisphere, there is a small, faint patchy focus o f enhancement. There is no evidence of major intra-axial hemorrhage. No obstructive hydrocephalus. Mild to moderate chronic ischemic white matter changes of the cerebrum. No mass effect, midline shift, or extra-axial fluid collection. No dural venous sinus thrombosis. Flow voids are grossly maintained in the major central arteries of [place]. IMPRESSION: Several faint, patchy, ill-defined, small foci of enhancement in the bilateral cerebellar hemispheres , and at least one in the cerebellar vermis. 2 of them on the left have restricted diffusion. The ill-defined margins are atypical for intra-axial metastases. Possibilities include leptomeningeal met astases in the posterior fossa versus vasculitis. (Restricted diffusion is typically present in brain metastases of tumors with high nucleus to cytoplasm ratios, i.e. small round blue cell tumors s uch as small cell cancer). The possibility is vasculitis.
--- NOTE | 2019-07-07 14:08 | NM ---
Radionucleotide bone scan HISTORY: Lung cancer. Initial staging. FINDINGS: Heterogeneous uptake at each acromioclavicular and glenohumeral joint. Uptake at the right wrist from injection site. No abnormal areas of uptake otherwise demonstrated. IMPRESSION : Degenerative changes of the shoulders. No scintigraphic evidence of osseous metastasis.
[2019-07-07 14:45] LABS: Vancomycin, Random 18.3 ug/mL (See Comment)
[2019-07-07] MEDS ORDERED: Vancomycin 1 GM in Premix Bag 1 BAG IVPB SCH (16:00)
--- NOTE | 2019-07-07 16:08 | PDOC.HOSPP ---
- Subjective Encounter Date: 07/07/19 Encounter Time: 16:14 Subjective: F/u: abd pain/distension, lung cancer The patient feels slightly better but still feels weak. He has productive cough and mild chest congestion. Abd pain has improved some. - Objective Vital Signs & Weight: Vital Signs (12 hours) Temp Pulse Ox 07/07/19 15:20 97.2 F L 07/07/19 07:37 94 L 07/07/19 07:11 97.6 F Weight Admit Weight 141 lb 1.6 oz Weight 152 lb Most Recent Monitor Data Heart Rate from ECG 96 NIBP 123/76 NIBP BP-Mean 91 Respiration from ECG 18 SpO2 98 I&O: 07/06/19 07/07/19 07/08/19 06:59 06:59 06:59 Intake Total 480 2887 600 Output Total 375 1150 265 Balance 105 1737 335 Result Diagrams: 07/07/19 03:26 07/07/19 03:26 Hospitalist ROS - Review of Systems Constitutional: denies: fever, chills - Medication Medications: Active Medications Generic Name Dose Route Start Last Admin Trade Name Freq PRN Reason Stop Dose Admin Hydrocortisone Sodium Succinate 50 mg 07/06/19 12:00 07/07/19 12:09 Solu-Cortef IVP 07/13/19 06:01 50 mg Q6HR RAGHAV Administration Piperacillin Sod/Tazobactam 100 mls @ 200 mls/hr 07/05/19 23:00 07/07/19 10: 31 Sod 3.375 gm/ Sodium Chloride IVPB 100 mls 0500,1100,1700,2300 RAGHAV Administration Iron/Minerals/Multivitamins 1 tab 07/06/19 09:00 07/07/19 10:30 Theragran M PO 1 tab DAILY RAGHAV Administration Melatonin 6 mg 07/05/19 23:26 07/06/19 22:33 Melatonin PO 6 mg HS PRN Administration Insomnia Potassium Chloride 40 meq 07/05/19 22:32 07/07/19 05:19 K-Dur PO 40 meq ASDIR PRN Administration FOR SERUM K+ 2.5 - 3.5 Potassium Chloride 10 meq 07/06/19 09:00 07/07/19 10:30 Klor-Con 10 PO Not Given DAILY RAGHAV Tamsulosin HCl 0.4 mg 07/06/19 21:00 07/06/19 20:44 Flomax PO 0.4 mg HS RAGHAV Administration - Exam General Appearance: NAD, awake alert Eye: PERRL, anicteric sclera ENT: normocephalic atraumatic, no oropharyngeal lesions Neck: supple, no JVD Heart: RRR, no murmur, no gallops, no rubs Respiratory: CTAB, no wheezes, no rales, no ronchi Gastrointestinal: soft, non-tender, non-distended, normal bowel sounds Extremities: no cyanosis, no clubbing, no edema Hosp A/P - Plan CT abdomen: extensive mets in liver ,bilateral adrenals, extensive malignant lymphadenopathy of the upper abdomen and retroperitoneal region. Small amount of hemorrhage mixed with ascites. Small right pleural effusion and mild anasarca. Small pericardial effusion. Gallstones within the gallbladder Chest X ray: fullness of right paratracheal region. Nodule/mass in the left upper lobe incompletely evaluated CTA chest: no PE, moderate pericardial effusion. Multiple live rmets and met in left adrenal gland. Extensive mediastinal LAD. Spiculated mass left upper lobe. US abdomen: small amount of ascites, not warranting paracentesis. Gallstones, small fluid around gallbladder. + [place] sign MRI Brain: several faint, pathcy ill defined small foci of enhancement in the bilateral cerebellar hemispheres and one in the cerebellar vermis. Possibilities include leptomeningeal metastases in the posterior fossa versus vasculitis. ECHO: small pericardial effusion. EF 60-65%, mild TR, trace MR Bone scan: no metastases This is a 69 year old who presented with severe abd pain after liver biopsy, found to have extensive liver and adrenal metastases #Metastatic small cell cancer to the liver and brain, abdomen and adrenal -oncology consulted, patient to get chemotherapy tomorrow. Will transfer to oncology unit - bone scan done 07/06 shows no bone metastases - MRI brain 07/06 shows metastases leptomeningeal versus vasculitis. Patient denies headaches #Acute hypoxic respiratory failure secondary to lung cancer, pericardial effusion - CTA chest showed no PE but moderate pericardial effusion. He received 40 mg IV lasix 07/06. He also was started on vancomycin and zosyn on admission due to hypotension/lactic acidosis . Blood cultures negative. ECHO shows only mild pericardial effusion and essentially unremarkable - continue antibiotics #Transaminitis #Ascites - CT abdomen showing worsening metastases in the abdomen, adrenal, liver. LFTS elevated. Liver biopsy 06/29 consistent with metastatic small cell cancer. Original CT showing some hemorrhage and moderate ascites, repeat CT scan 07/05 shows stable ascites. Paracentesis not done because no significant fluid to tap - US RUQ showed gallstones, unlikely cholecystitis per GI with normal bili - continue to trend LFTS #Hemorrhagic anemia - Hb 7.9, will continue to monitor - #Hypotension #Lactic acidosis - improved to 3.9 with albumin . Given another dose of albumin this morning. Will repeat lactic acid - hydrocortisone started as well - continue empiric vancomycin and zosyn. Blood cultures are negative
--- NOTE | 2019-07-07 16:21 | PDOC.PALCO ---
Palliative Care Consult - Consult Details Requesting Physician: Dr Saavedra Reason for Consult: assistance with communication prognosis/disease - Pertinent HPI 69 year old male who lives independently. Mr Lynette has a known history of small cell lung cancer with metastatic disease to the liver and adrenal glands an diffuse lymphadenopathy. He has an onset of abdominal pain that was progressing in severity. Recent liver biopsy in June and pain has progressed sense, increase in lower extremity edema and increase in shortness of breath. He present to the emergency room secondary to worsening symptoms with no ability to mitigate. CT of the abdomen and pelvis identified extensive metastatic disease as well as a small hemorrhage and ascites thought to be secondary to recent liver biopsy. Admitted to [facility] for medical management. Seen by Dr Ocampo and chemo initiated in the hospital secondary to aggressive cancer and continued decline if not treated immediately. - Pertinent PMH CHF, hypokalemia, Small Cell Lung cancer - Social History Smoking Status: Former smoker Smoking: cigarettes Alcohol Use: none Drug Use History: none Living Situation: independent - Medications MAR Reviewed: Yes - Allergies Allergies/Adverse Reactions: Allergies Allergy/AdvReac Type Severity Reaction Status Date / Time No Known Allergies Allergy Verified 06/28/19 17:23 - Subjective Resting, alert. Hoarse, pronounced weakness and shortness of breath with minimal conversation. States pain is currently managed. Full uneaten lunch tray at bedside. - ROS Constitutional: alert, loss appetite, weakness ENT: other Respiratory: shortness of breath, shortness of breath with extertion Cardiology: other (chest pain, discomfort) Gastrointestinal: bloating, stomach discomfort Musculoskeletal: other (denies extremity pain) Psychological: other (denies depression, anxiety) - Objective Vital Signs: Vital Signs - Most Recent Temp Pulse Resp BP Pulse Ox 97.2 F L 93 113/67 94 L 07/07/19 15:20 07/06/19 16:51 07/06/19 16:51 07/07/19 07:37 Palliative Performance Scale: 40 - Physical Exam Constitutional: cachectic, ill appearing HEENT: EOMI, moist MMs, sclera anicteric Respiratory: accessory muscle use, labored respirations Cardiovascular: RRR Deviation from normal: Distended Genitourinary: parra catheter Musculoskeletal: no cyanosis, no clubbing, edema present, diffuse muscle atrophy Neurology: moves all 4 limbs, no focal deficits Skin: cap refill <2 seconds, fragile Psychiatric: A&O x 3 - Problem List (1) Palliative care encounter Code(s): Z51.5 - ENCOUNTER FOR PALLIATIVE CARE Current Visit: Yes Status: Acute (2) Acute respiratory failure Code(s): J96.00 - ACUTE RESPIRATORY FAILURE, UNSP W HYPOXIA OR HYPERCAPNIA Current Visit: No Status: Acute (3) CHF (congestive heart failure) Code(s): I50.9 - HEART FAILURE, UNSPECIFIED Current Visit: No Status: Acute (4) Liver mass Code(s): R16.0 - HEPATOMEGALY, NOT ELSEWHERE CLASSIFIED Current Visit: No Status: Acute (5) Lung mass Code(s): R91.8 - OTHER NONSPECIFIC ABNORMAL FINDING OF LUNG FIELD Current Visit: No Status: Resolved (6) Shortness of breath Code(s): R06.02 - SHORTNESS OF BREATH Current Visit: No Status: Acute (7) Anorexia Code(s): R63.0 - ANOREXIA Current Visit: Yes Status: Acute - Plan/Recommendations Plan: Mr Ojeda provided short history, however he becomes short of breath and fatigued with minimal conversation. He is hopeful that chemo today palliates his cancer. Discussed he hopes to return to the home setting. Palliative Care will continue to follow to discuss disease trajectory and address Goal of Care. Vianca Samayoa RNchild care cook establishes his MPOA (Joelle Cowan) and she has arranged paid caregivers to assist when he returns to the home setting, he was also given information in relation to services that may also assist in care in the home setting. Poor intake, discussed small portions, and to attempt to consume meals and ensure to support healing. Will also add dietary consult for suggestions and assistance in increasing caloric intake for Mr Ojeda. Communicated with Dr Saavedra and Dr Ocampo Will readdress resuscitation status and continue with conversations in relation to Goal of Care. Emotional support and therapeutic listening. [50] minutes spent on this encounter with >50% of the time in counseling and coordination of care. Thank you for this very appropriate consult.
[2019-07-07 16:48] LABS: Lactic Acid 4.2 mmol/L (0.5-2.2)
[2019-07-07 17:03] LABS: Anion Gap 21 mmol/L (10-20); BUN (Urea Nitrogen) 40 mg/dL (8.4-25.7); Calc. Creatinine Clearance 54 mL/min (70-130); Carbon Dioxide 23 mmol/L (23-31); Chloride 105 mmol/L (98-107); Estimated GFR-MDRD 57; Glucose 140 mg/dL (80-115); Potassium 4.1 mmol/L (3.5-5.1); Sodium 146 mmol/L (136-145)
[2019-07-07 17:55] LABS: CKMB 1.5 ng/mL (0-6.6)
[2019-07-07] MEDS: Tamsulosin HCl 0.4 MG CAP PO SCH (20:24)
[2019-07-08] MEDS: Piperacillin/Tazobactam 3.375 GM in Sodium Chloride 0.9% 100 ML IVPB SCH ×4 (04:57→23:30)
[2019-07-08 06:02] LABS: Hemoglobin 7.5 g/dL (14.0-18.0); Mean Corpuscular HGB CONC 33.2 g/dL (32.0-36.0); Mean Corpuscular Hemoglobin 32.4 pg (27.0-31.0); Mean Corpuscular Volume 97.6 fL (78.0-98.0); Mean Platelet Volume 7.6 fL (7.4-10.4); Platelet Count 168 thou/uL (130-400); Red Blood Cell (RBC) Count 2.32 mill/uL (4.70-6.10); White Blood Cell (WBC) Count 17.2 thou/uL (4.8-10.8)
[2019-07-08] MEDS: Hydrocortisone Sod Succ/PF 100 mg/2 ml Vial IVP SCH ×4 (06:09→23:30)
[2019-07-08] MEDS: Vancomycin 1 GM in Premix Bag 1 BAG IVPB SCH ×2 (06:10→17:56)
[2019-07-08 06:20] LABS: Lactic Acid 2.2 mmol/L (0.5-2.2)
[2019-07-08 06:25] LABS: ALT (SGPT) 146 U/L (8-55); AST (SGOT) 77 U/L (5-34); Albumin 3.6 g/dL (3.4-4.8); Alkaline Phosphatase 120 U/L (40-110); Anion Gap 14 mmol/L (10-20); BUN (Urea Nitrogen) 40 mg/dL (8.4-25.7); Calc. Creatinine Clearance 58 mL/min (70-130); Carbon Dioxide 31 mmol/L (23-31); Chloride 106 mmol/L (98-107); Estimated GFR-MDRD 61; Glucose 131 mg/dL (80-115); Potassium 3.3 mmol/L (3.5-5.1); Protein, Total 5.6 g/dL (5.8-8.1); Sodium 148 mmol/L (136-145)
[2019-07-08 06:44] LABS: CKMB 1.3 ng/mL (0-6.6)
[2019-07-08] MEDS ORDERED: Potassium Chloride 20 MEQ TAB PO SCH (07:45)
[2019-07-08] MEDS ORDERED: Sodium Chloride 0.45% 1,000 ML IV SCH (07:45)
[2019-07-08] MEDS: Multivitamin W/ Minerals 1 TAB PO SCH (08:10)
[2019-07-08] MEDS ORDERED: Furosemide 20 MG TAB PO SCH (08:15)
[2019-07-08] MEDS: Potassium Chloride 10 MEQ TAB PO SCH (08:16)
[2019-07-08] MEDS ORDERED: Senokot 8.6 MG TAB PO PRN (08:17)
--- NOTE | 2019-07-08 08:18 | PDOC.HOSPP ---
- Subjective Encounter Date: 07/08/19 Encounter Time: 08:18 Subjective: The patient feels okay. He is constipated, no BM in three days. He feels short of breath, no cough, congestion or chest pain. No longer has abd pain - Objective Vital Signs & Weight: Vital Signs (12 hours) Temp Pulse Resp BP BP Pulse Ox 07/08/19 08:00 97.9 F 95 24 H 130/67 95 07/08/19 05:34 22 H 93 L 07/08/19 04:55 98.2 F 95 24 H 144/71 H 97 07/08/19 00:17 94 L 07/07/19 23:56 24 H 95 07/07/19 23:46 97.6 F 88 22 H 137/70 90 L Weight Admit Weight 141 lb 1.6 oz Weight 155 lb 4 oz Most Recent Monitor Data Heart Rate from ECG 91 NIBP 132/69 NIBP BP-Mean 90 Respiration from ECG 37 SpO2 94 I&O: 07/07/19 07/08/19 07/09/19 06:59 06:59 06:59 Intake Total 2887 1760 Output Total 1150 1165 Balance 1737 595 Result Diagrams: 07/08/19 05:47 07/08/19 05:47 Hospitalist ROS - Review of Systems Constitutional: denies: fever, chills ENT: denies: ear pain Respiratory: denies: cough, shortness of breath Cardiovascular: denies: chest pain, palpitations - Medication Medications: Active Medications Generic Name Dose Route Start Last Admin Trade Name Freq PRN Reason Stop Dose Admin Hydrocortisone Sodium Succinate 50 mg 07/06/19 12:00 07/08/19 06:09 Solu-Cortef IVP 07/13/19 06:01 50 mg Q6HR RAGHAV Administration Piperacillin Sod/Tazobactam 100 mls @ 200 mls/hr 07/05/19 23:00 07/08/19 04: 57 Sod 3.375 gm/ Sodium Chloride IVPB 100 mls 0500,1100,1700,2300 RAGHAV Administration Vancomycin HCl 1 gm/ Device 200 mls @ 200 mls/hr 07/08/19 06:00 07/08/19 06: 10 IVPB 200 mls 0600,1800 RAGHAV Administration Sodium Chloride 1,000 mls @ 75 mls/hr 07/08/19 07:45 07/08/19 08:15 1/2 Normal Saline IV Not Given .[id number] RAGHAV Iron/Minerals/Multivitamins 1 tab 07/06/19 09:00 07/08/19 08:10 Theragran M PO 1 tab DAILY RAGHAV Administration Melatonin 6 mg 07/05/19 23:26 07/06/19 22:33 Melatonin PO 6 mg HS PRN Administration Insomnia Potassium Chloride 10 meq 07/06/19 09:00 07/08/19 08:16 Klor-Con 10 PO Not Given DAILY RAGHAV Potassium Chloride 40 meq 07/08/19 07:45 07/08/19 08:10 K-Dur PO 07/08/19 09:45 40 meq NOW RAGHAV Administration Sodium Chloride 10 ml 07/07/19 22:45 07/08/19 04:57 Flush - Normal Saline IVF 10 ml PRN PRN Administration Saline Flush Tamsulosin HCl 0.4 mg 07/06/19 21:00 07/07/19 20:24 Flomax PO 0.4 mg HS RAGHAV Administration - Exam General Appearance: NAD, awake alert Eye: PERRL, anicteric sclera ENT: normocephalic atraumatic, no oropharyngeal lesions Neck: no JVD Heart: RRR, no murmur, no gallops, no rubs Respiratory: CTAB, no wheezes, rales Respiratory - other findings: at bases Gastrointestinal: soft Gastrointestinal - other findings: distended, firm, nontender Extremities: no cyanosis Extremities - other findings: 3+ pitting edema in the feet Skin: normal turgor, no lesions, no rashes Neurological: cranial nerve grossly intact, normal sensation to touch, no weakness, no focal deficits, no new deficit Hosp A/P - Plan CT abdomen: extensive mets in liver ,bilateral adrenals, extensive malignant lymphadenopathy of the upper abdomen and retroperitoneal region. Small amount of hemorrhage mixed with ascites. Small right pleural effusion and mild anasarca. Small pericardial effusion. Gallstones within the gallbladder Chest X ray: fullness of right paratracheal region. Nodule/mass in the left upper lobe incompletely evaluated CTA chest: no PE, moderate pericardial effusion. Multiple live rmets and met in left adrenal gland. Extensive mediastinal LAD. Spiculated mass left upper lobe. US abdomen: small amount of ascites, not warranting paracentesis. Gallstones, small fluid around gallbladder. + [place] sign MRI Brain: several faint, pathcy ill defined small foci of enhancement in the bilateral cerebellar hemispheres and one in the cerebellar vermis. Possibilities include leptomeningeal metastases in the posterior fossa versus vasculitis. ECHO: small pericardial effusion. 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 - bone scan done 07/06 shows no bone metastases - MRI brain 07/06 shows metastases leptomeningeal versus vasculitis. Patient denies headaches #Acute hypoxic respiratory failure secondary to lung cancer, pericardial effusion - CTA chest showed no PE but moderate pericardial effusion. He received 40 mg IV lasix 07/06. He also was started on vancomycin and zosyn on admission due to hypotension/lactic acidosis . Blood cultures negative. ECHO shows only mild pericardial effusion and essentially unremarkable - continue antibiotics empirically for now given that he may get chemotherapy - will resume patient's outpatient lasix 20 mg due to edema on exam #Transaminitis #Ascites - CT abdomen showing worsening metastases in the abdomen, adrenal, liver. LFTS elevated. Liver biopsy 06/29 consistent with metastatic small cell cancer. Original CT showing some hemorrhage and moderate ascites, repeat CT scan 07/05 shows stable ascites. Paracentesis not done because no significant fluid to tap - US RUQ showed gallstones, unlikely cholecystitis per GI with normal bili - LFTS improving today #Hemorrhagic anemia - Hb 7.5 - B12 and folate normal - #Hypotension - resolved with albumin - will wean hydrocortisone to 25 mg q6 hours #Lactic acidosis - resolved. Continue antibiotics. Blood cultures negative
[2019-07-08] MEDS ORDERED: CARBOPLATIN IVPB SCH ×2 (09:00→12:00)
[2019-07-08] MEDS ORDERED: Palonosetron HCl 0.25 MG in Sodium Chloride 0.9% 50 ML IVPB SCH (09:00)
[2019-07-08] MEDS ORDERED: SODIUM CHLORIDE 0.9% IVPB SCH ×3 (09:00→12:00)
[2019-07-08] MEDS: Docusate 100 MG CAP PO SCH ×2 (09:05→19:26)
[2019-07-08] MEDS: Polyethylene Glycol 3350 17 GM Packet PO SCH (09:05)
--- NOTE | 2019-07-08 09:46 | PRG ---
DATE OF SERVICE: 07/08/2019 SUBJECTIVE: This morning, he is awake, alert, and responsive. He is transferred to the Oncology floor. OBJECTIVE: VITAL SIGNS: Temperature 97, pulse 95, respirations 25, saturations 95% on 1 L, blood pressure 130/67. GENERAL: Denies any pain or discomfort. CHEST: Decreased breath sounds. No wheezing. CARDIAC: Normal S1 and S2. No gallops. ABDOMEN: No masses. IMPRESSION: Hypertension metastatic small cell cancer, underlying chronic obstructive pulmonary disease, left upper lung mass. Pulmonary spangler, he is stable. He is given chemotherapy per Oncology. I will consider discontinuing his vancomycin. No evidence to suspect any sepsis at this stage. Job ID: [id number]
[2019-07-08] MEDS ORDERED: D5W-AA 4.25% with LYTES 1,000 ML BAG IV SCH (11:30)
--- NOTE | 2019-07-08 11:47 | PQF ---
KENIA THOMPSON CANDY, [facility] [id number] CLINICAL DOCUMENTATION IMPROVEMENT CLARIFICATION FORM: ICD-10 Updated PLEASE DO AN ADDENDUM TO THE PROGRESS NOTE WITH ANY DOCUMENTATION UPDATES OR ADDITIONS AND CARRY THROUGH TO DC SUMMARY. THANK YOU. DATE: ATTN:DR. Mike GUPTA Please exercise your independent, professional judgment in responding to the clarification form. Clinical indicators are provided on the bottom of this form for your review. Please check appropriate box(s) to clarify if the following diagnosis has been ruled in or ruled out: SEPSIS [ ] Ruled in diagnosis [ ] Continue to treat [ ] Resolved [ ] Ruled out diagnosis [ X ] Cannot rule out diagnosis [ ] Other diagnosis [ ] Unable to determine In addition, please specify: Present on Admission (POA): [ ] Yes [ ] No [ X ] Unable to determine For continuity of documentation, please document condition throughout progress notes and discharge summary. Thank You. INDICATORS - SIGNS / SYMPTOMS / LABS / RESULTS AND LOCATION IN CLINICAL RECORD WBC 12.9 > 12.5 > 13.8 > 14.3 > 17.2 LACTIC ACID 5.3 > 3.8 > 4,9 > 3.5 > 4.2 07/04 ED REPORT: REPORTS ABD PAIN AND WEAKNESS, DX STAGE 4 LUNG CA 2 WEEKS AGO. RESP 32, P 111, BP 73/56,/ REPORTS DISTENDED ABD, INABILITY TO URINATE, SLIGHTLY SOB, COUGH NO FEVER, FINAL DX: SEPTIC SHOCK, ANEMIA, HYPOKALEMIA, INDETERMINATE TROPONIN 07/05 H&P ([facility]) A/P: A). SEPSIS. THE PT HAS ELEVATED LEUKOCYTOSIS. HE WAS HYPOTENSIVE. HE ALSO HAS ABDOMINAL PAIN, UNCLEAR ETIOLOGY AT THIS TIME. I WILL TREAT HIM SEPSIS. 07/06 CONSULT ([facility]) PRESENTING TO HOSPITAL WITH DIFFUSE ABDOMINAL PAIN, SMALL LIVER BIOPSY- INDUCED HEMORRHAGE, ASCITES, ABDOMINAL SWELLING, LOWER EXTREMITY SWELLING, HYPOTENSION, AND LACTIC ACIDOSIS. THE PATIENT HAS NO SOURCE OF INFECTION, BUT HAS BEEN TREATED WITH BROAD-SPECTRUM ANTIBIOTICS, FLUIDS. RISK: LEUKOCYTOSIS, HYPOTENSIVE , DISTENDED ABDOMEN, RECENT LIVER BIOPSY ( [facility]/H&P ) 07/05 TREATMENTS: ZOSYN IV ( 07/04 - PRESENT) URINE/ BLOOD CULTURES (07/04) THANK YOU! SISSY (This form is maintained as a part of the permanent medical record) 2014 [employer] All Rights Reserved [email or web address]
[2019-07-08] MEDS ORDERED: ETOPOSIDE IVPB SCH (12:00)
--- NOTE | 2019-07-08 14:08 | PDOC.MOPN ---
Interval History: states feels better but gasps with speaking. - Vital Signs Vital Signs: Vital Signs (12 hours) Temp Pulse Resp BP BP Pulse Ox 07/08/19 11:45 97.6 F 92 28 H 128/72 94 L 07/08/19 08:00 97.9 F 95 24 H 130/67 95 07/08/19 05:34 22 H 93 L 07/08/19 04:55 98.2 F 95 24 H 144/71 H 97 Weight Admit Weight 141 lb 1.6 oz Weight 155 lb 4 oz Most Recent Monitor Data Heart Rate from ECG 91 NIBP 132/69 NIBP BP-Mean 90 Respiration from ECG 37 SpO2 94 - Physical Exam General: Alert, Oriented x3, No acute distress HEENT: Atraumatic, PERRLA, EOMI, Mucous membr. moist/pink Lungs: Other (rhonchi) Cardiovascular: Regular rate, Normal S1, Normal S2, No murmurs, Gallops, Rubs Abdomen: Normal bowel sounds, Soft, No tenderness, No hepatospenomegaly, No masses, Other (ruq distention) Extremities: No clubbing, No cyanosis, No edema, Normal pulses, No tenderness/ swelling Neurological: Normal speech - Labs Result Diagrams: 07/08/19 05:47 07/08/19 05:47 Lab results: Laboratory Results - last 24 hr 07/08/19 05:47: Vitamin B12 1144 H 07/08/19 05:47: Folate 11.10 07/08/19 05:47: WBC 17.2 H, RBC 2.32 L, Hgb 7.5 L, Hct 22.6 L, MCV 97.6, MCH 32.4 H, MCHC 33.2, RDW 15.0 H, Plt Count 168, MPV 7.6 07/08/19 05:47: Sodium 148 H, Potassium 3.3 L, Chloride 106, Carbon Dioxide 31, Anion Gap 14, BUN 40 H, Creatinine 1.19, Estimated GFR (MDRD) 61, Glucose 131 H , Calcium 9.0, Total Bilirubin 1.0, AST 77 H, ALT 146 H, Alkaline Phosphatase 120 H, Serum Total Protein 5.6 L, Albumin 3.6, Globulin 2.0 L, Albumin/Globulin Ratio 1.8 07/08/19 05:47: CK-MB (CK-2) 1.3, Troponin I 0.053 H 07/08/19 05:47: Lactic Acid 2.2 07/07/19 16:23: CK-MB (CK-2) 1.5, Troponin I 0.041 H 07/07/19 16:22: Lactic Acid 4.2 H* 07/07/19 16:22: Sodium 146 H, Potassium 4.1, Chloride 105, Carbon Dioxide 23, Anion Gap 21 H, BUN 40 H, Creatinine 1.25, Estimated GFR (MDRD) 57, Glucose 140 H, Calcium 9.0 07/07/19 14:18: Random Vancomycin 18.3 Status: lab reviewed by me A/P - Problem (1) Small cell lung cancer Current Visit: Yes Code(s): C34.90 - MALIGNANT NEOPLASM OF UNSP PART OF UNSP BRONCHUS OR LUNG Status: Acute (2) Brain metastasis Current Visit: Yes Code(s): C79.31 - SECONDARY MALIGNANT NEOPLASM OF BRAIN Status: Acute (3) Acute respiratory failure Current Visit: No Code(s): J96.00 - ACUTE RESPIRATORY FAILURE, UNSP W HYPOXIA OR HYPERCAPNIA Status: Acute - Plan Plan: Patient will begin chemo today. Three day regimen. He has tiny areas of hypodensity in brain that are most likely metastasis. Will treat with systemic chemo and then need whole brain radiation. Patient understands and agreeable to start.
[2019-07-08] MEDS: D5W-AA 4.25% with LYTES 1,000 ML IV SCH (14:14)
[2019-07-08] MEDS: SODIUM CHLORIDE 0.9% IVPB SCH (16:15)
[2019-07-08] MEDS: ETOPOSIDE IVPB SCH (16:15)
[2019-07-08] MEDS: Tamsulosin HCl 0.4 MG CAP PO SCH (19:26)
[2019-07-09] MEDS: Melatonin 3 MG TAB PO PRN ×2 (00:35→20:02)
[2019-07-09] MEDS: Hydrocortisone Sod Succ/PF 100 mg/2 ml Vial IVP SCH ×2 (05:22→11:06)
[2019-07-09] MEDS: Piperacillin/Tazobactam 3.375 GM in Sodium Chloride 0.9% 100 ML IVPB SCH ×2 (05:22→11:05)
[2019-07-09] MEDS: Vancomycin 1 GM in Premix Bag 1 BAG IVPB SCH (05:25)
[2019-07-09] MEDS: D5W-AA 4.25% with LYTES 1,000 ML IV SCH ×2 (05:26→19:25)
[2019-07-09 05:48] LABS: Hemoglobin 7.5 g/dL (14.0-18.0); Mean Corpuscular HGB CONC 32.9 g/dL (32.0-36.0); Mean Corpuscular Hemoglobin 32.4 pg (27.0-31.0); Mean Corpuscular Volume 98.4 fL (78.0-98.0); Mean Platelet Volume 8.1 fL (7.4-10.4); Platelet Count 167 thou/uL (130-400); RBC Distribution Width 14.9 % (11.5-14.5); Red Blood Cell (RBC) Count 2.31 mill/uL (4.70-6.10); White Blood Cell (WBC) Count 16.5 thou/uL (4.8-10.8)
[2019-07-09 05:59] LABS: Vancomycin, Trough 26.9 ug/mL
[2019-07-09 06:03] LABS: ALT (SGPT) 129 U/L (8-55); AST (SGOT) 69 U/L (5-34); Albumin 3.4 g/dL (3.4-4.8); Alkaline Phosphatase 130 U/L (40-110); Anion Gap 14 mmol/L (10-20); BUN (Urea Nitrogen) 48 mg/dL (8.4-25.7); Bilirubin, Total 0.9 mg/dL (0.2-1.2); Calc. Creatinine Clearance 61 mL/min (70-130); Carbon Dioxide 28 mmol/L (23-31); Chloride 106 mmol/L (98-107); Estimated GFR-MDRD 64; Globulin 2.1 g/dL (2.4-3.5); Glucose 225 mg/dL (80-115); Potassium 3.6 mmol/L (3.5-5.1); Protein, Total 5.5 g/dL (5.8-8.1); Sodium 144 mmol/L (136-145)
[2019-07-09] MEDS: Potassium Chloride 10 MEQ TAB PO SCH (08:10)
[2019-07-09] MEDS: Polyethylene Glycol 3350 17 GM Packet PO SCH (08:10)
[2019-07-09] MEDS: Multivitamin W/ Minerals 1 TAB PO SCH (08:10)
[2019-07-09] MEDS: Docusate 100 MG CAP PO SCH ×2 (08:10→19:51)
--- NOTE | 2019-07-09 08:17 | PDOC.MOPN ---
Interval History: Pt c/o diarrhea x 4 yesterday and 1 this AM, all watery, no blood. He had constipation prior and received colace x 2. No fever. SOB stable. Still not eating very much. - Vital Signs Vital Signs: Vital Signs (12 hours) Temp Pulse Resp BP BP Pulse Ox 07/09/19 07:54 97.2 F L 83 20 137/66 97 07/09/19 00:02 98.7 F 89 18 138/70 95 Weight Admit Weight 141 lb 1.6 oz Weight 153 lb 9.6 oz Most Recent Monitor Data Heart Rate from ECG 91 NIBP 132/69 NIBP BP-Mean 90 Respiration from ECG 37 SpO2 94 - Physical Exam General: Alert, Oriented x3, Cooperative HEENT: EOMI Lungs: Normal air movement Abdomen: Other (distended) Neurological: Cranial nerves 3-12 NL Psych/Mental Status: Mood NL - Labs Result Diagrams: 07/09/19 05:20 07/09/19 05:21 Lab results: Laboratory Results - last 24 hr 07/09/19 05:21: Sodium 144, Potassium 3.6, Chloride 106, Carbon Dioxide 28, Anion Gap 14, BUN 48 H, Creatinine 1.13, Estimated GFR (MDRD) 64, Glucose 225 H , Calcium 9.0, Total Bilirubin 0.9, AST 69 H, ALT 129 H, Alkaline Phosphatase 130 H, Serum Total Protein 5.5 L, Albumin 3.4, Globulin 2.1 L, Albumin/Globulin Ratio 1.6 07/09/19 05:21: Vancomycin Trough 26.9 07/09/19 05:20: WBC 16.5 H, RBC 2.31 L, Hgb 7.5 L, Hct 22.8 L, MCV 98.4 H, MCH 32.4 H, MCHC 32.9, RDW 14.9 H, Plt Count 167, MPV 8.1 A/P - Problem (1) Brain metastasis Current Visit: Yes Code(s): C79.31 - SECONDARY MALIGNANT NEOPLASM OF BRAIN Status: Acute (2) Small cell lung cancer Current Visit: Yes Code(s): C34.90 - MALIGNANT NEOPLASM OF UNSP PART OF UNSP BRONCHUS OR LUNG Status: Acute - Plan Plan: C1D2 of Carboplatin + VP16 check C. diff if he has another diarrhea stool, hold stool softeners today encourage increased PO intake
--- NOTE | 2019-07-09 10:20 | PRG ---
DATE OF SERVICE: 07/09/2019 SUBJECTIVE: This morning, he is doing better. He is no longer hypotensive. OBJECTIVE: VITAL SIGNS: Blood pressure 130/76, temperature 97, pulse 80, respirations 20, sats 95%. CHEST: Decreased breath sounds. No wheezing. CARDIAC: Normal S1 and S2. No gallops. ABDOMEN: Soft. IMPRESSION: Metastatic carcinoma, small cell, baseline chronic obstructive pulmonary disease, and lung cancer. PLAN: I probably switch him over to oral prednisone. P.o. antibiotics. Job ID: [id number]
[2019-07-09] MEDS ORDERED: Iopamidol 370 76% 100 ML VIAL ONE (11:37)
[2019-07-09] MEDS ORDERED: SODIUM CHLORIDE 0.9% IVPB SCH (12:00)
[2019-07-09] MEDS ORDERED: ETOPOSIDE IVPB SCH (12:00)
--- NOTE | 2019-07-09 12:53 | PDOC.HOSPP ---
- Subjective Encounter Date: 07/09/19 Encounter Time: 09:30 Subjective: The patient feels better, tolerated chemo well. He has no abd pain. reports having a hoarse voice and wants it to go back to normal. Denies acid reflux. Leg is still swollen but improved - Objective Vital Signs & Weight: Vital Signs (12 hours) Temp Pulse Resp BP Pulse Ox 07/09/19 08:00 97 07/09/19 07:54 97.2 F L 83 20 137/66 97 Weight Admit Weight 141 lb 1.6 oz Weight 153 lb 9.6 oz Most Recent Monitor Data Heart Rate from ECG 91 NIBP 132/69 NIBP BP-Mean 90 Respiration from ECG 37 SpO2 94 I&O: 07/08/19 07/09/19 07/10/19 06:59 06:59 06:59 Intake Total 1760 4120 Output Total 1165 850 Balance 595 3270 Result Diagrams: 07/09/19 05:20 07/09/19 05:21 Hospitalist ROS - Review of Systems Constitutional: denies: fever, chills - Medication Medications: Active Medications Generic Name Dose Route Start Last Admin Trade Name Freq PRN Reason Stop Dose Admin Docusate Sodium 100 mg 07/08/19 09:00 07/09/19 08:10 Colace PO Not Given BID RAGHAV Etoposide 188 mg/ Sodium 509.4 mls @ 509.4 mls/hr 07/08/19 09:00 07/08/19 16: 15 Chloride IVPB 07/10/19 23:00 509.4 mls WILLCALL RAGHAV Administration Amino Acids/Electrolytes/Dextrose 1,000 mls @ 75 mls/hr 07/08/19 12:30 05:26 Clinimix E 4.25/5 IV 1,000 mls 1230 RAGHAV Administration Iron/Minerals/Multivitamins 1 tab 07/06/19 09:00 07/09/19 08:10 Theragran M PO 1 tab DAILY RAGHAV Administration Melatonin 6 mg 07/05/19 23:26 07/09/19 00:35 Melatonin PO 6 mg HS PRN Administration Insomnia Polyethylene Glycol 17 gm 07/08/19 09:00 07/09/19 08:10 Miralax PO Not Given DAILY RAGHAV Potassium Chloride 10 meq 07/06/19 09:00 07/09/19 08:10 Klor-Con 10 PO 10 meq DAILY RAGHAV Administration Sodium Chloride 10 ml 07/07/19 22:45 07/08/19 04:57 Flush - Normal Saline IVF 10 ml PRN PRN Administration Saline Flush Tamsulosin HCl 0.4 mg 07/06/19 21:00 07/08/19 19:26 Flomax PO 0.4 mg HS RAGHAV Administration - Exam General Appearance: NAD, awake alert General - other findings: appears malnourished Eye: PERRL ENT: normocephalic atraumatic, no oropharyngeal lesions Neck: supple, no JVD Heart: RRR, no murmur, no gallops, no rubs Respiratory: CTAB, no wheezes Respiratory - other findings: decreased breath sounds left lower lobe Gastrointestinal: soft, non-tender Gastrointestinal - other findings: mild distension, firm, nontender Extremities - other findings: 2+ LE edema in the feet Skin: normal turgor, no lesions, no rashes Neurological: cranial nerve grossly intact, normal sensation to touch, no focal deficits, no new deficit Musculoskeletal: normal tone, normal strength, no muscle wasting Hosp A/P - Plan CT abdomen: extensive mets in liver ,bilateral adrenals, extensive malignant lymphadenopathy of the upper abdomen and retroperitoneal region. Small amount of hemorrhage mixed with ascites. Small right pleural effusion and mild anasarca. Small pericardial effusion. Gallstones within the gallbladder Chest X ray: fullness of right paratracheal region. Nodule/mass in the left upper lobe incompletely evaluated CTA chest: no PE, moderate pericardial effusion. Multiple live rmets and met in left adrenal gland. Extensive mediastinal LAD. Spiculated mass left upper lobe. US abdomen: small amount of ascites, not warranting paracentesis. Gallstones, small fluid around gallbladder. + [place] sign MRI Brain: several faint, pathcy ill defined small foci of enhancement in the bilateral cerebellar hemispheres and one in the cerebellar vermis. Possibilities include leptomeningeal metastases in the posterior fossa versus vasculitis. ECHO: small pericardial effusion. 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 WBC downtrending today - bone scan done 07/06 shows no bone metastases - MRI brain 07/06 shows metastases leptomeningeal versus vasculitis. Patient denies headaches #Acute hypoxic respiratory failure secondary to lung cancer, pericardial effusion - CTA chest showed no PE but moderate pericardial effusion. He received 40 mg IV lasix 07/06. He also was started on vancomycin and zosyn on admission due to hypotension/lactic acidosis . Blood cultures negative. ECHO shows only mild pericardial effusion and essentially unremarkable -will d/c vancomycin, switch to oral augmentin -continue lasix 20 mg Hoarse voice - will obtain CT neck to evaluate for any laryngeal mass Peripheral edema - continue lasix 20 mg - wean hydrocortisone to oral #Transaminitis #Ascites - CT abdomen showing worsening metastases in the abdomen, adrenal, liver. LFTS elevated. Liver biopsy 06/29 consistent with metastatic small cell cancer. Original CT showing some hemorrhage and moderate ascites, repeat CT scan 07/05 shows stable ascites. Paracentesis not done because no significant fluid to tap - US RUQ showed gallstones, unlikely cholecystitis per GI with normal bili - LFTS improving today #Hemorrhagic anemia - Hb 7.5 - B12 and folate normal Hypernatremia - resolved #Hypotension - resolved with albumin - wean to oral prednisone 20 mg daily #Lactic acidosis - resolved. Continue antibiotics. Blood cultures negative
--- NOTE | 2019-07-09 14:17 | EKG ---
Test Reason : Blood Pressure : / mmHG Vent. Rate : 111 BPM Atrial Rate : 111 BPM P-R Int : 094 ms QRS Dur : 078 ms QT Int : 324 ms P-R-T Axes : 097 -11 158 degrees QTc Int : 440 ms Sinus tachycardia with short NJ Left ventricular hypertrophy with repolarization abnormality Abnormal ECG Compared to ekg of 16-SEP-2015 New T wave inversion I, aVL Confirmed by KORINA BRANCH DO ([id number]), visual effects editor ROBINSON HAND ([id number]) on 07/09/2019 2:17:20 PM Referred By: Confirmed By:KORINA BRANCH DO
--- NOTE | 2019-07-09 14:28 | CT ---
CT neck with contrast: DATE: 07/09/2019 HISTORY: 69-year-old male with lung cancer presents with hoarseness. Evaluate for laryngeal cancer. FINDINGS: There is a noncalcified spiculated left upper lobe approximately 4.2 x 1.4 x 1.7 cm pulmonary mass. There is a large number of necrotic, very enlarged lymph nodes throughout all visualized sepsis space s of the upper mediastinum, including pretracheal, bilateral paratracheal, prevascular space, etc. These masses are confluent such that borders between individual lymph nodes are difficult to ascertai n regarding some of the masses. The confluence of the bilateral brachiocephalic veins is extrinsically compressed and narrowed between very enlarged lymph nodes anterior and posterior to it. There are multiple enlarged, necrotic right supraclavicular level 4A and 4B lymph nodes. The largest conglomeration is located medially, posterior to the right common carotid artery which it dis places anteriorly. It is posterior to the right internal jugular vein, which is severely narrows and compresses, and displaces anteriorly this mass is approximately 3.5 x 2.5 x 5 cm. There is a small right pleural effusion. There is no cervical lymphadenopathy in the mid and upper neck. No convincing evidence of neoplastic tumor in the larynx or hypopharynx. No major definite asymmetry of vocal cords identified. The pharyngeal mucosal, retropharyngeal, submandibular, parotid, upper and mid posterior cervical, pa rapharyngeal, and monogram maker, spaces, are unremarkable. No destructive osseous lesion. IMPRESSION: 1. No compelling evidence of laryngeal cancer. 2. Extensive, moderately severe malignant metastatic mediastinal and right supraclavicular lymphadeno rodri, with potential for impingement on recurrent laryngeal nerve. 3. Left upper lobe pulmonary mass: Evidence for primary left upper lobe lung cancer. 4. Right pleural effusion.
[2019-07-09] MEDS: ETOPOSIDE IVPB SCH (14:58)
[2019-07-09] MEDS: SODIUM CHLORIDE 0.9% IVPB SCH (14:58)
[2019-07-09] MEDS: Amoxicillin/Potassium Clav 875 MG TAB PO SCH (20:02)
[2019-07-09] MEDS: Tamsulosin HCl 0.4 MG CAP PO SCH (20:02)
[2019-07-10 06:00] LABS: Hemoglobin 7.6 g/dL (14.0-18.0); Mean Corpuscular HGB CONC 32.5 g/dL (32.0-36.0); Mean Corpuscular Hemoglobin 32.3 pg (27.0-31.0); Mean Corpuscular Volume 99.4 fL (78.0-98.0); Mean Platelet Volume 8.3 fL (7.4-10.4); Platelet Count 155 thou/uL (130-400); RBC Distribution Width 15.2 % (11.5-14.5); Red Blood Cell (RBC) Count 2.34 mill/uL (4.70-6.10); White Blood Cell (WBC) Count 15.6 thou/uL (4.8-10.8)
[2019-07-10] MEDS ORDERED: Vancomycin HCl 750 MG in Sodium Chloride 0.9% 250 ML 250 ML IVPB SCH (06:00)
[2019-07-10 06:25] LABS: ALT (SGPT) 107 U/L (8-55); AST (SGOT) 80 U/L (5-34); Albumin 3.1 g/dL (3.4-4.8); Alkaline Phosphatase 136 U/L (40-110); Anion Gap 13 mmol/L (10-20); BUN (Urea Nitrogen) 44 mg/dL (8.4-25.7); Bilirubin, Total 0.6 mg/dL (0.2-1.2); Calc. Creatinine Clearance 90 mL/min (70-130); Carbon Dioxide 27 mmol/L (23-31); Chloride 107 mmol/L (98-107); Estimated GFR-MDRD Greater than 90; Globulin 2.6 g/dL (2.4-3.5); Glucose 125 mg/dL (80-115); Potassium 4.4 mmol/L (3.5-5.1); Protein, Total 5.7 g/dL (5.8-8.1); Sodium 143 mmol/L (136-145)
[2019-07-10] MEDS ORDERED: predniSONE 20 MG TAB PO SCH (08:00)
[2019-07-10] MEDS ORDERED: Sodium Chloride 0.9% 500 ML IV SCH (08:15)
[2019-07-10] MEDS: Multivitamin W/ Minerals 1 TAB PO SCH (08:37)
[2019-07-10] MEDS: Potassium Chloride 10 MEQ TAB PO SCH (08:38)
[2019-07-10] MEDS: Amoxicillin/Potassium Clav 875 MG TAB PO SCH ×2 (08:38→20:36)
--- NOTE | 2019-07-10 08:39 | PDOC.MOPN ---
Interval History: Pt feeling ok this morning, walked up the [place] once yesterday, eating minimally better. Had 3 diarrhea stools yesterday, improved from 4 the day prior, none today thus far. - Vital Signs Vital Signs: Vital Signs (12 hours) Temp Pulse Resp BP Pulse Ox 07/10/19 08:10 97.5 F L 87 20 166/78 H 94 L Weight Admit Weight 141 lb 1.6 oz Weight 155 lb 3.2 oz Most Recent Monitor Data Heart Rate from ECG 91 NIBP 132/69 NIBP BP-Mean 90 Respiration from ECG 37 SpO2 94 - Physical Exam General: Alert, Cooperative HEENT: EOMI Lungs: Normal air movement Cardiovascular: Regular rate Neurological: Cranial nerves 3-12 NL Psych/Mental Status: Mood NL - Labs Result Diagrams: 07/10/19 05:47 07/10/19 05:47 Lab results: Laboratory Results - last 24 hr 07/10/19 05:47: WBC 15.6 H, RBC 2.34 L, Hgb 7.6 L, Hct 23.3 L, MCV 99.4 H, MCH 32.3 H, MCHC 32.5, RDW 15.2 H, Plt Count 155, MPV 8.3 07/10/19 05:47: Sodium 143, Potassium 4.4, Chloride 107, Carbon Dioxide 27, Anion Gap 13, BUN 44 H, Creatinine 0.77, Estimated GFR (MDRD) Greater than 90, Glucose 125 H, Calcium 9.0, Total Bilirubin 0.6, AST 80 H, ALT 107 H, Alkaline Phosphatase 136 H, Serum Total Protein 5.7 L, Albumin 3.1 L, Globulin 2.6, Albumin/Globulin Ratio 1.2 A/P - Problem (1) Brain metastasis Current Visit: Yes Code(s): C79.31 - SECONDARY MALIGNANT NEOPLASM OF BRAIN Status: Acute (2) Small cell lung cancer Current Visit: Yes Code(s): C34.90 - MALIGNANT NEOPLASM OF UNSP PART OF UNSP BRONCHUS OR LUNG Status: Acute - Plan Plan: C1D3 of chemo: VP16 today cont chemo, Fulphila tomorrow encourage increase PO intake, PT
[2019-07-10] MEDS: D5W-AA 4.25% with LYTES 1,000 ML IV SCH ×2 (08:44→21:15)
--- NOTE | 2019-07-10 09:37 | PRG ---
DATE OF SERVICE: 07/10/2019 SUBJECTIVE: This morning, is awake, alert, responsive, sitting on the side of the bed. OBJECTIVE: VITAL SIGNS: Temperature 97, pulse 80, respiratory rate 20, sats on room air, blood pressure 166/78. CHEST: No wheezing, crackles. CARDIAC: Normal S1 and S2. No gallops. ABDOMEN: No masses. IMPRESSION: Extensive small-cell cancer status post chemo, severe deconditioning, marked weight loss. PLAN: Comfort care. DISPOSITION: Home any time. Follow up with Oncology, Pulmonary follow at a distance. Call if needed. Job ID: [id number]
[2019-07-10] MEDS ORDERED: PEGFILGRASTIM-JMDB 6 MG/0.6 ML SYRINGE SQ SCH (12:00)
[2019-07-10] MEDS ORDERED: ATEZOLIZUMAB 1,200 MG in Sodium Chloride 0.9% 250 ML 250 ML IV SCH (12:00)
[2019-07-10] MEDS: SODIUM CHLORIDE 0.9% IVPB SCH (14:27)
[2019-07-10] MEDS: ETOPOSIDE IVPB SCH (14:27)
--- NOTE | 2019-07-10 14:39 | PDOC.HOSPP ---
- Subjective Encounter Date: 07/10/19 Encounter Time: 10:30 Subjective: The patient feels okay. No significant SOB or chest pain. No abd pain. Tolerated chemo well. - Objective Vital Signs & Weight: Vital Signs (12 hours) Temp Pulse Resp BP Pulse Ox 07/10/19 14:21 98.3 F 82 16 172/87 H 93 L 07/10/19 08:10 97.5 F L 87 20 166/78 H 94 L 07/10/19 08:00 94 L Weight Admit Weight 141 lb 1.6 oz Weight 155 lb 3.2 oz Most Recent Monitor Data Heart Rate from ECG 91 NIBP 132/69 NIBP BP-Mean 90 Respiration from ECG 37 SpO2 94 I&O: 07/09/19 07/10/19 07/11/19 06:59 06:59 06:59 Intake Total 4120 2510 Output Total 850 1500 Balance 3270 1010 Result Diagrams: 07/10/19 05:47 07/10/19 05:47 Hospitalist ROS - Review of Systems Constitutional: denies: fever, chills - Medication Medications: Active Medications Generic Name Dose Route Start Last Admin Trade Name Freq PRN Reason Stop Dose Admin Amoxicillin/Clavulanate Potassium 875 mg 07/09/19 21:00 07/10/19 08:38 Augmentin PO 875 mg Q12HR RAGHAV Administration Etoposide 188 mg/ Sodium 509.4 mls @ 509.4 mls/hr 07/08/19 09:00 07/09/19 14: 58 Chloride IVPB 07/10/19 23:00 509.4 mls WILLCALL RAGHAV Administration Amino Acids/Electrolytes/Dextrose 1,000 mls @ 75 mls/hr 07/08/19 12:30 08:44 Clinimix E 4.25/5 IV 1,000 mls 1230 RAGHAV Administration Sodium Chloride 500 mls @ 75 mls/hr 07/10/19 08:15 07/10/19 09:20 Normal Saline 0.9% IV 07/10/19 14:54 500 mls .Q6H40M RAGHAV Administration Iron/Minerals/Multivitamins 1 tab 07/06/19 09:00 07/10/19 08:37 Theragran M PO 1 tab DAILY RAGHAV Administration Melatonin 6 mg 07/05/19 23:26 07/09/19 20:02 Melatonin PO 6 mg HS PRN Administration Insomnia Potassium Chloride 10 meq 07/06/19 09:00 07/10/19 08:38 Klor-Con 10 PO 10 meq DAILY RAGHAV Administration Prednisone 20 mg 07/10/19 08:00 07/10/19 08:37 Prednisone PO 20 mg QAM-WM RAGHAV Administration Sodium Chloride 10 ml 07/07/19 22:45 07/08/19 04:57 Flush - Normal Saline IVF 10 ml PRN PRN Administration Saline Flush Tamsulosin HCl 0.4 mg 07/06/19 21:00 07/09/19 20:02 Flomax PO 0.4 mg HS RAGHAV Administration - Exam General Appearance: NAD, awake alert Eye: PERRL, anicteric sclera ENT: normocephalic atraumatic, no oropharyngeal lesions Neck: supple, no JVD Heart: RRR, no murmur, no gallops, no rubs Respiratory: CTAB, no wheezes, no rales, no ronchi Gastrointestinal: soft, non-tender, non-distended, normal bowel sounds Extremities: no cyanosis, no clubbing, 2+ LE edema Skin: normal turgor, no lesions, no rashes Neurological: cranial nerve grossly intact, normal sensation to touch, no focal deficits, no new deficit Musculoskeletal: normal tone, normal strength, no muscle wasting Psychiatric: normal affect, normal behavior, A&O x 3, oriented to person Hosp A/P - Plan CT abdomen: extensive mets in liver ,bilateral adrenals, extensive malignant lymphadenopathy of the upper abdomen and retroperitoneal region. Small amount of hemorrhage mixed with ascites. Small right pleural effusion and mild anasarca. Small pericardial effusion. Gallstones within the gallbladder Chest X ray: fullness of right paratracheal region. Nodule/mass in the left upper lobe incompletely evaluated CTA chest: no PE, moderate pericardial effusion. Multiple live rmets and met in left adrenal gland. Extensive mediastinal LAD. Spiculated mass left upper lobe. US abdomen: small amount of ascites, not warranting paracentesis. Gallstones, small fluid around gallbladder. + [place] sign MRI Brain: several faint, pathcy ill defined small foci of enhancement in the bilateral cerebellar hemispheres and one in the cerebellar vermis. Possibilities include leptomeningeal metastases in the posterior fossa versus vasculitis. ECHO: small pericardial effusion. EF 60-65%, mild TR, trace MR Bone scan: no metastases CT neck: extensively moderately severe malignant metastatic mediastinal and right supraclavicular LAD with impingement on recurrent laryngeal nerve. Left upper lobe pulmonary mass. 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 WBC downtrending today - bone scan done 07/06 shows no bone metastases - MRI brain 07/06 shows metastases leptomeningeal versus vasculitis. Patient denies headaches - pt started on chemotherapy 07/08. Continue for three days #Acute hypoxic respiratory failure secondary to lung cancer, pericardial effusion - resolved - CTA chest showed no PE but moderate pericardial effusion. He received 40 mg IV lasix 07/06. He also was started on vancomycin and zosyn on admission due to hypotension/lactic acidosis . Blood cultures negative. ECHO shows only mild pericardial effusion and essentially unremarkable - continue oral augmentin for few more days -continue lasix 20 mg - on prednisone 20 mg Hoarse voice - CT neck shows no laryngeal cancer Peripheral edema - continue lasix 20 mg #Transaminitis #Ascites - CT abdomen showing worsening metastases in the abdomen, adrenal, liver. LFTS elevated. Liver biopsy 06/29 consistent with metastatic small cell cancer. Original CT showing some hemorrhage and moderate ascites, repeat CT scan 07/05 shows stable ascites. Paracentesis not done because no significant fluid to tap - US RUQ showed gallstones, unlikely cholecystitis per GI with normal bili - LFTS unchanged #Hemorrhagic anemia - Hb 7.5 - B12 and folate normal Hypernatremia - resolved #Hypotension - resolved with albumin - wean to oral prednisone 10 mg daily #Lactic acidosis - resolved. Continue antibiotics. Blood cultures negative
--- NOTE | 2019-07-10 15:50 | PDOC.FMACP ---
Advance Care Planning - Problem (1) Palliative care encounter Status: Acute Code(s): Z51.5 - ENCOUNTER FOR PALLIATIVE CARE (2) Acute respiratory failure Status: Acute Code(s): J96.00 - ACUTE RESPIRATORY FAILURE, UNSP W HYPOXIA OR HYPERCAPNIA (3) CHF (congestive heart failure) Status: Acute Code(s): I50.9 - HEART FAILURE, UNSPECIFIED (4) Liver mass Status: Acute Code(s): R16.0 - HEPATOMEGALY, NOT ELSEWHERE CLASSIFIED (5) Shortness of breath Status: Acute Code(s): R06.02 - SHORTNESS OF BREATH (6) Anorexia Status: Acute Code(s): R63.0 - ANOREXIA - Note Participants: patient Summary: Advanced Care Planning was discussed. The diagnosis, prognosis and goals of care were discussed. Appropriate forms and documentation to accomplish the goals of care were discussed. All questions were answered. The Palliative Care Team will be engaged to assist with completion of any outstanding forms that are needed. Mr Ojeda wishes to continue to remain with all aggressive measures to sustain life including resuscitation and needed interventions and treatments. 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 He has a designated MPOA Joelle Cowan who is his neighbor. [phone]. Discussed "Hope for the Best plan for the worst" and he stated again, he is a fighter and wishes to "Fight until the end" . Please also refer to Palliative Care RN notes in note section. Time Spent (mins): 30
[2019-07-10] MEDS: Tamsulosin HCl 0.4 MG CAP PO SCH (20:36)
[2019-07-10] MEDS: Melatonin 3 MG TAB PO PRN (20:36)
[2019-07-11 05:35] LABS: Mean Corpuscular HGB CONC 33.1 g/dL (32.0-36.0); Mean Corpuscular Hemoglobin 32.8 pg (27.0-31.0); Mean Corpuscular Volume 99.1 fL (78.0-98.0); Mean Platelet Volume 8.2 fL (7.4-10.4); Platelet Count 139 thou/uL (130-400); RBC Distribution Width 15.3 % (11.5-14.5); Red Blood Cell (RBC) Count 2.45 mill/uL (4.70-6.10); White Blood Cell (WBC) Count 12.5 thou/uL (4.8-10.8)
[2019-07-11 05:54] LABS: Anion Gap 10 mmol/L (10-20); BUN (Urea Nitrogen) 39 mg/dL (8.4-25.7); Calc. Creatinine Clearance 111 mL/min (70-130); Calcium 8.8 mg/dL (7.8-10.44); Carbon Dioxide 28 mmol/L (23-31); Chloride 108 mmol/L (98-107); Estimated GFR-MDRD Greater than 90; Glucose 107 mg/dL (80-115); Potassium 4.2 mmol/L (3.5-5.1); Sodium 142 mmol/L (136-145)
[2019-07-11] MEDS ORDERED: predniSONE 5 MG TAB PO SCH (08:00)
[2019-07-11] MEDS: Potassium Chloride 10 MEQ TAB PO SCH (08:51)
[2019-07-11] MEDS: Amoxicillin/Potassium Clav 875 MG TAB PO SCH ×2 (08:51→20:09)
[2019-07-11] MEDS: Furosemide 20 MG TAB PO SCH ×2 (08:51→20:09)
[2019-07-11] MEDS: Multivitamin W/ Minerals 1 TAB PO SCH (08:51)
[2019-07-11] MEDS: D5W-AA 4.25% with LYTES 1,000 ML IV SCH ×2 (10:51→18:13)
--- NOTE | 2019-07-11 12:47 | PDOC.MOPN ---
Interval History: sleeping, off O2 - Vital Signs Vital Signs: Vital Signs (12 hours) Temp Pulse Resp BP Pulse Ox 07/11/19 08:51 93 L 07/11/19 08:00 98.5 F 85 20 151/72 H 93 L 07/11/19 04:20 93 L Weight Admit Weight 141 lb 1.6 oz Weight 158 lb 4.8 oz Most Recent Monitor Data Heart Rate from ECG 91 NIBP 132/69 NIBP BP-Mean 90 Respiration from ECG 37 SpO2 94 - Physical Exam General: No acute distress HEENT: Atraumatic, PERRLA, EOMI, Mucous membr. moist/pink Lungs: Other (wheeze) Cardiovascular: Regular rate Abdomen: Normal bowel sounds Skin: No rashes Neurological: Normal speech Psych/Mental Status: Mental status NL - Labs Result Diagrams: 07/11/19 05:15 07/11/19 05:15 Lab results: Laboratory Results - last 24 hr 07/11/19 05:15: WBC 12.5 H, RBC 2.45 L, Hgb 8.0 L, Hct 24.3 L, MCV 99.1 H, MCH 32.8 H, MCHC 33.1, RDW 15.3 H, Plt Count 139, MPV 8.2 07/11/19 05:15: Sodium 142, Potassium 4.2, Chloride 108 H, Carbon Dioxide 28, Anion Gap 10, BUN 39 H, Creatinine 0.64 L, Estimated GFR (MDRD) Greater than 90 , Glucose 107, Calcium 8.8 Status: lab reviewed by me A/P - Problem (1) Small cell lung cancer Current Visit: Yes Code(s): C34.90 - MALIGNANT NEOPLASM OF UNSP PART OF UNSP BRONCHUS OR LUNG Status: Acute (2) Brain metastasis Current Visit: Yes Code(s): C79.31 - SECONDARY MALIGNANT NEOPLASM OF BRAIN Status: Acute (3) Acute respiratory failure Current Visit: No Code(s): J96.00 - ACUTE RESPIRATORY FAILURE, UNSP W HYPOXIA OR HYPERCAPNIA Status: Acute - Plan Plan: C1D4 of chemo: Fulphila today PT, OOB encourage increase PO intake, PT poss home in am if eating and ambulating.
--- NOTE | 2019-07-11 14:17 | PDOC.HOSPP ---
- Subjective Subjective: F/u: lung cancer The patient states he feels okay, but feels kind of weak. He hasn't gotten out of bed much. No significant cough or shortness of breath. He has no nausea - Objective Vital Signs & Weight: Vital Signs (12 hours) Temp Pulse Resp BP Pulse Ox 07/11/19 08:51 93 L 07/11/19 08:00 98.5 F 85 20 151/72 H 93 L 07/11/19 04:20 93 L Weight Admit Weight 141 lb 1.6 oz Weight 158 lb 4.8 oz Most Recent Monitor Data Heart Rate from ECG 91 NIBP 132/69 NIBP BP-Mean 90 Respiration from ECG 37 SpO2 94 I&O: 07/10/19 07/11/19 07/12/19 06:59 06:59 06:59 Intake Total 2510 3820 Output Total 1500 900 Balance 1010 2920 Result Diagrams: 07/11/19 05:15 07/11/19 05:15 Hospitalist ROS - Review of Systems Constitutional: denies: fever, chills Respiratory: denies: dry Cardiovascular: denies: chest pain, palpitations - Medication Medications: Active Medications Generic Name Dose Route Start Last Admin Trade Name Freq PRN Reason Stop Dose Admin Amoxicillin/Clavulanate Potassium 875 mg 07/09/19 21:00 07/11/19 08:51 Augmentin PO 875 mg Q12HR RAGHAV Administration Furosemide 20 mg 07/11/19 09:00 07/11/19 08:51 Lasix PO 20 mg BID RAGHAV Administration Amino Acids/Electrolytes/Dextrose 1,000 mls @ 75 mls/hr 07/08/19 12:30 10:51 Clinimix E 4.25/5 IV 1,000 mls 1230 RAGHAV Administration Iron/Minerals/Multivitamins 1 tab 07/06/19 09:00 07/11/19 08:51 Theragran M PO 1 tab DAILY RAGHAV Administration Melatonin 6 mg 07/05/19 23:26 07/10/19 20:36 Melatonin PO 6 mg HS PRN Administration Insomnia Potassium Chloride 10 meq 07/06/19 09:00 07/11/19 08:51 Klor-Con 10 PO 10 meq DAILY RAGHAV Administration Prednisone 10 mg 07/11/19 08:00 07/11/19 08:51 Prednisone PO 10 mg QAM-WM RAGHAV Administration Sodium Chloride 10 ml 07/07/19 22:45 07/08/19 04:57 Flush - Normal Saline IVF 10 ml PRN PRN Administration Saline Flush Tamsulosin HCl 0.4 mg 07/06/19 21:00 07/10/19 20:36 Flomax PO 0.4 mg HS RAGHAV Administration - Exam General Appearance: NAD, awake alert General - other findings: cachexic Eye: PERRL, anicteric sclera ENT: normocephalic atraumatic, no oropharyngeal lesions Neck: supple, no JVD Heart: RRR, no murmur, no gallops, no rubs Respiratory: CTAB, no wheezes, no rales, no ronchi Gastrointestinal: soft Gastrointestinal - other findings: mild distension. Nontender to palpation Extremities: 2+ LE edema Skin: normal turgor, no lesions, no rashes Neurological: cranial nerve grossly intact, normal sensation to touch, no focal deficits, no new deficit Hosp A/P - Plan CT abdomen: extensive mets in liver ,bilateral adrenals, extensive malignant lymphadenopathy of the upper abdomen and retroperitoneal region. Small amount of hemorrhage mixed with ascites. Small right pleural effusion and mild anasarca. Small pericardial effusion. Gallstones within the gallbladder Chest X ray: fullness of right paratracheal region. Nodule/mass in the left upper lobe incompletely evaluated CTA chest: no PE, moderate pericardial effusion. Multiple live rmets and met in left adrenal gland. Extensive mediastinal LAD. Spiculated mass left upper lobe. US abdomen: small amount of ascites, not warranting paracentesis. Gallstones, small fluid around gallbladder. + [place] sign MRI Brain: several faint, patchy ill defined small foci of enhancement in the bilateral cerebellar hemispheres and one in the cerebellar vermis. Possibilities include leptomeningeal metastases in the posterior fossa versus vasculitis. ECHO: small pericardial effusion. EF 60-65%, mild TR, trace MR Bone scan: no metastases CT neck: extensively moderately severe malignant metastatic mediastinal and right supraclavicular LAD with impingement on recurrent laryngeal nerve. Left upper lobe pulmonary mass. 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 WBC downtrending today - bone scan done 07/06 shows no bone metastases - MRI brain 07/06 shows metastases leptomeningeal versus vasculitis. Patient denies headaches - pt started on chemotherapy 07/08. The patient to get his last dose today #Acute hypoxic respiratory failure secondary to lung cancer, pericardial effusion - resolved - CTA chest showed no PE but moderate pericardial effusion. He received 40 mg IV lasix 07/06. He also was started on vancomycin and zosyn on admission due to hypotension/lactic acidosis . Blood cultures negative. ECHO shows only mild pericardial effusion and essentially unremarkable - continue oral augmentin for few more days -continue lasix 20 mg bid - on prednisone 10 mg, will d/c from today Physical deconditioning - appreciate PT to see the patient. They recommended rehab on the Hoarse voice - CT neck shows no laryngeal cancer Peripheral edema - continue lasix 20 mg bid #Transaminitis #Ascites - CT abdomen showing worsening metastases in the abdomen, adrenal, liver. LFTS elevated. Liver biopsy 06/29 consistent with metastatic small cell cancer. Original CT showing some hemorrhage and moderate ascites, repeat CT scan 07/05 shows stable ascites. Paracentesis not done because no significant fluid to tap - US RUQ showed gallstones, unlikely cholecystitis per GI with normal bili - LFTS stable. Repeat tomorrow #Anemia - Hb 7.5, stable - B12 and folate normal Hypernatremia - resolved #Hypotension - resolved with albumin. Will discontinue prednisone today #Lactic acidosis - resolved. Continue antibiotics. Blood cultures negative Disposition: d/c to rehab potentially tomorrow?
[2019-07-11] MEDS: Tamsulosin HCl 0.4 MG CAP PO SCH (20:09)
[2019-07-12] MEDS: Melatonin 3 MG TAB PO PRN (01:46)
[2019-07-12 06:10] LABS: Hemoglobin 8.7 g/dL (14.0-18.0); Mean Corpuscular HGB CONC 32.8 g/dL (32.0-36.0); Mean Corpuscular Hemoglobin 32.1 pg (27.0-31.0); Mean Corpuscular Volume 97.9 fL (78.0-98.0); Mean Platelet Volume 7.8 fL (7.4-10.4); Platelet Count 138 thou/uL (130-400); RBC Distribution Width 15.3 % (11.5-14.5); Red Blood Cell (RBC) Count 2.72 mill/uL (4.70-6.10); White Blood Cell (WBC) Count 24.4 thou/uL (4.8-10.8)
[2019-07-12 06:19] LABS: ALT (SGPT) 87 U/L (8-55); AST (SGOT) 90 U/L (5-34); Alkaline Phosphatase 162 U/L (40-110); Anion Gap 14 mmol/L (10-20); BUN (Urea Nitrogen) 35 mg/dL (8.4-25.7); Bilirubin, Total 1.1 mg/dL (0.2-1.2); Calc. Creatinine Clearance 133 mL/min (70-130); Calcium 8.5 mg/dL (7.8-10.44); Carbon Dioxide 24 mmol/L (23-31); Chloride 107 mmol/L (98-107); Estimated GFR-MDRD Greater than 90; Globulin 2.4 g/dL (2.4-3.5); Glucose 92 mg/dL (80-115); Potassium 4.6 mmol/L (3.5-5.1); Protein, Total 5.4 g/dL (5.8-8.1); Sodium 140 mmol/L (136-145)
[2019-07-12] MEDS: Furosemide 20 MG TAB PO SCH ×2 (08:45→20:03)
[2019-07-12] MEDS: Amoxicillin/Potassium Clav 875 MG TAB PO SCH (08:45)
[2019-07-12] MEDS: D5W-AA 4.25% with LYTES 1,000 ML IV SCH ×2 (08:45→22:32)
[2019-07-12] MEDS: Multivitamin W/ Minerals 1 TAB PO SCH (08:45)
[2019-07-12] MEDS: Potassium Chloride 10 MEQ TAB PO SCH (08:45)
--- NOTE | 2019-07-12 12:21 | PDOC.HOSPP ---
- Subjective Encounter Date: 07/12/19 Encounter Time: 09:55 Subjective: comfortable in bed, no acute events o/n, except onle loose watery diarrhea. on augmentin, but wbcs jumped to 24K. d/w RN. Blood and urine aidan neg x 5 days. - Objective Vital Signs & Weight: Vital Signs (12 hours) Temp Pulse Resp BP Pulse Ox 07/12/19 08:45 93 L 07/12/19 08:17 93 L 07/12/19 08:03 97.8 F 90 18 147/70 H 93 L Weight Admit Weight 141 lb 1.6 oz Weight 159 lb 3.2 oz Most Recent Monitor Data Heart Rate from ECG 91 NIBP 132/69 NIBP BP-Mean 90 Respiration from ECG 37 SpO2 94 I&O: 07/11/19 07/12/19 07/13/19 06:59 06:59 06:59 Intake Total 3820 1525 120 Output Total 900 3800 Balance 2920 -2275 120 Result Diagrams: 07/12/19 05:50 07/12/19 05:50 Additional Labs: Accuchecks 07/11/19 17:49 POC Glucose 129 H Hospitalist ROS - Medication Medications: Active Medications Generic Name Dose Route Start Last Admin Trade Name Freq PRN Reason Stop Dose Admin Furosemide 20 mg 07/11/19 09:00 07/12/19 08:45 Lasix PO 20 mg BID RAGHAV Administration Amino Acids/Electrolytes/Dextrose 1,000 mls @ 75 mls/hr 07/08/19 12:30 08:45 Clinimix E 4.25/5 IV 1,000 mls 1230 RAGHAV Administration Iron/Minerals/Multivitamins 1 tab 07/06/19 09:00 07/12/19 08:45 Theragran M PO 1 tab DAILY RAGHAV Administration Melatonin 6 mg 07/05/19 23:26 07/12/19 01:46 Melatonin PO 6 mg HS PRN Administration Insomnia Pegfilgrastim-jmdb 6 mg 07/10/19 12:00 07/11/19 16:54 Fulphila SQ 6 mg WILLCALL RAGHAV Administration Potassium Chloride 10 meq 07/06/19 09:00 07/12/19 08:45 Klor-Con 10 PO 10 meq DAILY RAGHAV Administration Sodium Chloride 10 ml 07/07/19 22:45 07/08/19 04:57 Flush - Normal Saline IVF 10 ml PRN PRN Administration Saline Flush Tamsulosin HCl 0.4 mg 07/06/19 21:00 07/11/19 20:09 Flomax PO 0.4 mg HS RAGHAV Administration - Exam General Appearance: NAD, awake alert Eye: PERRL ENT: normocephalic atraumatic Neck: supple Heart: RRR Respiratory: CTAB Gastrointestinal: soft, normal bowel sounds Neurological: no focal deficits Hosp A/P - Plan workup so far CT abdomen: extensive mets in liver ,bilateral adrenals, extensive malignant lymphadenopathy of the upper abdomen and retroperitoneal region. Small amount of hemorrhage mixed with ascites. Small right pleural effusion and mild anasarca. Small pericardial effusion. Gallstones within the gallbladder Chest X ray: fullness of right paratracheal region. Nodule/mass in the left upper lobe incompletely evaluated CTA chest: no PE, moderate pericardial effusion. Multiple live rmets and met in left adrenal gland. Extensive mediastinal LAD. Spiculated mass left upper lobe. US abdomen: small amount of ascites, not warranting paracentesis. Gallstones, small fluid around gallbladder. + [place] sign MRI Brain: several faint, patchy ill defined small foci of enhancement in the bilateral cerebellar hemispheres and one in the cerebellar vermis. Possibilities include leptomeningeal metastases in the posterior fossa versus vasculitis. ECHO: small pericardial effusion. EF 60-65%, mild TR, trace MR Bone scan: no metastases CT neck: extensively moderately severe malignant metastatic mediastinal and right supraclavicular LAD with impingement on recurrent laryngeal nerve. Left upper lobe pulmonary mass. 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 WBC downtrending today - bone scan done 07/06 shows no bone metastases - MRI brain 07/06 shows metastases leptomeningeal versus vasculitis. Patient denies headaches - pt started on chemotherapy 07/08. The patient to get his last dose today #Acute hypoxic respiratory failure secondary to lung cancer, pericardial effusion - resolved - CTA chest showed no PE but moderate pericardial effusion. He received 40 mg IV lasix 07/06. He also was started on vancomycin and zosyn on admission due to hypotension/lactic acidosis . Blood cultures negative. ECHO shows only mild pericardial effusion and essentially unremarkable - continue oral augmentin for few more days -continue lasix 20 mg bid - on prednisone 10 mg, will d/c from today Physical deconditioning -PT rec- rehab Hoarse voice - CT neck shows no laryngeal cancer Peripheral edema - continue lasix 20 mg bid #Transaminitis #Ascites - CT abdomen showing worsening metastases in the abdomen, adrenal, liver. LFTS elevated. Liver biopsy 06/29 consistent with metastatic small cell cancer. Original CT showing some hemorrhage and moderate ascites, repeat CT scan 07/05 shows stable ascites. Paracentesis not done because no significant fluid to tap - US RUQ showed gallstones, unlikely cholecystitis per GI with normal bili - LFTS stable. #Anemia , stable - B12 and folate normal Hypernatremia - resolved #Hypotension - resolved with albumin. Will discontinue prednisone Leukocytosis --aidan neg but wbcs jumped this am/ - pt had diarrhea - will stop augmentin - abd exam no sign of abnormality - low threshold -- may need CT abdomen if he has more diarrhea - switched to IV zosyn for now until wbcs normalizes. -off vanc -CT abdomen on - free fluid-ascites. --keep toxic megacolon in diff dx, as high wbcs, and now diarr - pending cdiff. Disposition: d/c to rehab when more stable.
--- NOTE | 2019-07-12 13:21 | RAD ---
RADIOGRAPH CHEST 1 VIEW: DATE: 07/12/2019 TIME: 1:01 PM HISTORY: 69-year-old male with leukocytosis. Evaluate for pneumonia. COMPARISON: 07/05/2019 FINDINGS: There has been interval increase in volume of the small right pleural effusion. There is a new right lower lobe airspace opacity. There is new mild haziness at the left lung base. No cardiomegaly. Mediastinal widening. Lung apices are clear. No pneumothorax. IMPRESSION: 1. Interval increase in volume of small right pleural effusion. 2. New right lower lobe airspace opacity: Pneumonia versus atelectasis. 3. New haziness at left lung base: Pneumonia versus atelectasis 4. Malignant mediastinal lymphadenopathy.
[2019-07-12] MEDS: Piperacillin/Tazobactam 3.375 GM in Sodium Chloride 0.9% 100 ML IVPB SCH ×2 (13:25→20:03)
[2019-07-12 16:52] LABS: Bacteria/HPF None Seen HPF (None Seen); Bilirubin Negative (Negative); Blood, Urine Negative (Negative); Clarity Clear (Clear); Glucose, Urine (Dipstick) Normal (Negative); Leukocyte Negative Leu/uL (Negative); Nitrite Negative (Negative); Protein, Urine (Dipstick) 10 mg/dL (Neg-Trace); RBC/HPF 0-3 HPF (0-3); Squamous Epithelial None Seen HPF (0-3); Urobilinogen Normal mg/dL (Less than 2); WBC/HPF 0-3 HPF (0-3)
[2019-07-12 16:58] LABS: Urine Culture Reflex No No
[2019-07-12] MEDS: Tamsulosin HCl 0.4 MG CAP PO SCH (20:03)
[2019-07-13] MEDS: Melatonin 3 MG TAB PO PRN ×2 (00:19→23:45)
[2019-07-13] MEDS: Piperacillin/Tazobactam 3.375 GM in Sodium Chloride 0.9% 100 ML IVPB SCH ×3 (04:55→19:58)
[2019-07-13] MEDS: Potassium Chloride 10 MEQ TAB PO SCH (08:10)
[2019-07-13] MEDS: Multivitamin W/ Minerals 1 TAB PO SCH (08:10)
[2019-07-13] MEDS: Furosemide 20 MG TAB PO SCH ×2 (08:11→20:01)
[2019-07-13] MEDS ORDERED: Iopamidol-370 76% 500 ML 1 ML ONE (09:19)
--- NOTE | 2019-07-13 11:59 | PDOC.HOSPP ---
- Subjective Encounter Date: 07/13/19 Encounter Time: 09:20 Subjective: he has no c/o, no BM, his wbcs went up. - Objective Vital Signs & Weight: Vital Signs (12 hours) Temp Pulse Resp BP Pulse Ox 07/13/19 08:00 94 L 07/13/19 07:44 98.6 F 97 20 156/73 H 94 L Weight Admit Weight 141 lb 1.6 oz Weight 156 lb 11.979 oz Most Recent Monitor Data Heart Rate from ECG 91 NIBP 132/69 NIBP BP-Mean 90 Respiration from ECG 37 SpO2 94 I&O: 07/12/19 07/13/19 07/14/19 06:59 06:59 06:59 Intake Total 1525 2110 Output Total 3800 4950 Balance -5684 -3644 Result Diagrams: 07/12/19 05:50 07/12/19 05:50 Hospitalist ROS - Medication Medications: Active Medications Generic Name Dose Route Start Last Admin Trade Name Freq PRN Reason Stop Dose Admin Furosemide 20 mg 07/11/19 09:00 07/13/19 08:11 Lasix PO 20 mg BID RAGHAV Administration Amino Acids/Electrolytes/Dextrose 1,000 mls @ 75 mls/hr 07/08/19 12:30 22:32 Clinimix E 4.25/5 IV 1,000 mls 1230 RAGHAV Administration Piperacillin Sod/Tazobactam 100 mls @ 200 mls/hr 07/12/19 12:30 07/13/19 04: 55 Sod 3.375 gm/ Sodium Chloride IVPB 100 mls Q8H RAGHAV Administration Iron/Minerals/Multivitamins 1 tab 07/06/19 09:00 07/13/19 08:10 Theragran M PO 1 tab DAILY RAGHAV Administration Melatonin 6 mg 07/05/19 23:26 07/13/19 00:19 Melatonin PO 6 mg HS PRN Administration Insomnia Pegfilgrastim-jmdb 6 mg 07/10/19 12:00 07/11/19 16:54 Fulphila SQ 6 mg WILLCALL RAGHAV Administration Potassium Chloride 10 meq 07/06/19 09:00 07/13/19 08:10 Klor-Con 10 PO 10 meq DAILY RAGHAV Administration Sodium Chloride 10 ml 07/07/19 22:45 07/08/19 04:57 Flush - Normal Saline IVF 10 ml PRN PRN Administration Saline Flush Tamsulosin HCl 0.4 mg 07/06/19 21:00 07/12/19 20:03 Flomax PO 0.4 mg HS RAGHAV Administration - Exam General Appearance: NAD, ill appearing Eye: PERRL ENT: normocephalic atraumatic Neck: supple Heart: RRR Respiratory: normal chest expansion, rales, rhonchi Gastrointestinal: soft, normal bowel sounds Neurological: no focal deficits Hosp A/P - Plan workup so far CT abdomen: extensive mets in liver ,bilateral adrenals, extensive malignant lymphadenopathy of the upper abdomen and retroperitoneal region. Small amount of hemorrhage mixed with ascites. Small right pleural effusion and mild anasarca. Small pericardial effusion. Gallstones within the gallbladder Chest X ray: fullness of right paratracheal region. Nodule/mass in the left upper lobe incompletely evaluated CTA chest: no PE, moderate pericardial effusion. Multiple live rmets and met in left adrenal gland. Extensive mediastinal LAD. Spiculated mass left upper lobe. US abdomen: small amount of ascites, not warranting paracentesis. Gallstones, small fluid around gallbladder. + [place] sign MRI Brain: several faint, patchy ill defined small foci of enhancement in the bilateral cerebellar hemispheres and one in the cerebellar vermis. Possibilities include leptomeningeal metastases in the posterior fossa versus vasculitis. ECHO: small pericardial effusion. EF 60-65%, mild TR, trace MR Bone scan: no metastases CT neck: extensively moderately severe malignant metastatic mediastinal and right supraclavicular LAD with impingement on recurrent laryngeal nerve. Left upper lobe pulmonary mass. 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 WBC downtrending today - bone scan done 07/06 shows no bone metastases - MRI brain 07/06 shows metastases leptomeningeal versus vasculitis. Patient denies headaches - pt started on chemotherapy 07/08. The patient to get his last dose today #Acute hypoxic respiratory failure secondary to lung cancer, pericardial effusion - resolved - CTA chest showed no PE but moderate pericardial effusion. He received 40 mg IV lasix 07/06. He also was started on vancomycin and zosyn on admission due to hypotension/lactic acidosis . Blood cultures negative. ECHO shows only mild pericardial effusion and essentially unremarkable - continue oral augmentin for few more days---------->d/t high wbcs, changed back to zosyn -continue lasix 20 mg bid - on prednisone 10 mg, will d/c from today Physical deconditioning -PT rec- rehab Hoarse voice - CT neck shows no laryngeal cancer Peripheral edema - continue lasix 20 mg bid #Transaminitis #Ascites - CT abdomen showing worsening metastases in the abdomen, adrenal, liver. LFTS elevated. Liver biopsy 06/29 consistent with metastatic small cell cancer. Original CT showing some hemorrhage and moderate ascites, repeat CT scan 07/05 shows stable ascites. Paracentesis not done because no significant fluid to tap - US RUQ showed gallstones, unlikely cholecystitis per GI with normal bili - LFTS stable. #Anemia , stable - B12 and folate normal Hypernatremia - resolved #Hypotension - resolved with albumin. Will discontinue prednisone Leukocytosis Post obstructive pneumonia RLL pneumonia --aidan neg but wbcs jumped last 2 days - CXR shows new RLL opacity, pl effusion and hIwness on the left and medial LAD - all cw cancer and poss post obstructive pneumonia - pt had diarrhea - will stop augmentin - abd exam no sign of abnormality - low threshold -- may need CT abdomen if he has more diarrhea - switched to IV zosyn for now until wbcs normalizes. -off vanc -CT abdomen on - free fluid-ascites. --keep toxic megacolon in diff dx, as high wbcs, and now diarr - pending cdiff. -->-did not do it as no BM on . - dt/ wbcs keep trending up, will repeat the CT abd - to make sure no other abn.. pt is overall declining. - placed palliative consult. Disposition: d/c to rehab when more stable. full code
[2019-07-13 12:08] LABS: Hypersemented Neutrophil SLIGHT; Lymphocytes 2 % (21-51); MDiff Complete? YES; Mean Corpuscular HGB CONC 33.8 g/dL (32.0-36.0); Mean Corpuscular Hemoglobin 32.6 pg (27.0-31.0); Mean Corpuscular Volume 96.5 fL (78.0-98.0); Mean Platelet Volume 8.4 fL (7.4-10.4); Monocytes 1 % (0-10); Neutrophil 97 % (42-75); Platelet Count 110 thou/uL (130-400); Platelet Morphology Comment Appears Decreased; Red Blood Cell (RBC) Count 2.76 mill/uL (4.70-6.10); White Blood Cell (WBC) Count 18.5 thou/uL (4.8-10.8)
--- NOTE | 2019-07-13 12:24 | CT ---
CT ABDOMEN AND PELVIS WITH CONTRAST: Date: 07/13/2019 HISTORY: Diarrhea. Elevated white blood count. COMPARISON: CT abdomen and pelvis dated 07/05/2019. FINDINGS: Enlarging large pleural effusions. Severe hepatic metastatic disease is relatively similar. There is small volume ascites which is similar. Wall thickening of the gallbladder likely congestive in nature. Similar appearance of the fullness of left adrenal gland. Aortic contour is nonaneurysmal. Progressive third spacing of fluid. There is new high density fluid within the pelvic cul-de-sac rajan cative of hemorrhage. There is high density fluid along the right liver. IMPRESSION: 1. Concern for continued hemorrhage of the hepatic metastatic focus of right lobe of the liver as th ere is high density fluid within the pelvic cul-de-sac which appears to extend from the subhepatic sp jing. 2. New third spacing of fluid congestive in nature from hepatic dysfunction and metastatic overload. 3. Large bilateral layering pleural effusions. 4. No evidence for a toxic megacolon. POS: HOME
[2019-07-13] MEDS: D5W-AA 4.25% with LYTES 1,000 ML IV SCH (12:57)
[2019-07-13] MEDS: Tamsulosin HCl 0.4 MG CAP PO SCH (20:01)
[2019-07-14] MEDS: D5W-AA 4.25% with LYTES 1,000 ML IV SCH ×2 (01:52→14:48)
[2019-07-14] MEDS: Piperacillin/Tazobactam 3.375 GM in Sodium Chloride 0.9% 100 ML IVPB SCH ×3 (04:53→20:53)
[2019-07-14 06:30] LABS: Anion Gap 14 mmol/L (10-20); BUN (Urea Nitrogen) 25 mg/dL (8.4-25.7); Calc. Creatinine Clearance 100 mL/min (70-130); Calcium 8.2 mg/dL (7.8-10.44); Carbon Dioxide 19 mmol/L (23-31); Chloride 100 mmol/L (98-107); Estimated GFR-MDRD Greater than 90; Glucose 89 mg/dL (80-115); Potassium 5.1 mmol/L (3.5-5.1); Sodium 128 mmol/L (136-145)
[2019-07-14 06:36] LABS: Hemoglobin 9.2 g/dL (14.0-18.0); Hypochromia SLIGHT = 6-15 cells (100X) (0-5/hpf); Lymphocytes 3 % (21-51); MDiff Complete? YES; Mean Corpuscular HGB CONC 34.6 g/dL (32.0-36.0); Mean Corpuscular Hemoglobin 33.2 pg (27.0-31.0); Mean Corpuscular Volume 95.8 fL (78.0-98.0); Neutrophil 97 % (42-75); Platelet Count 100 thou/uL (130-400); Platelet Morphology Comment Appears Decreased; RBC Distribution Width 14.9 % (11.5-14.5); Red Blood Cell (RBC) Count 2.76 mill/uL (4.70-6.10); White Blood Cell (WBC) Count 9.5 thou/uL (4.8-10.8)
[2019-07-14] MEDS: Potassium Chloride 10 MEQ TAB PO SCH (08:35)
[2019-07-14] MEDS: Furosemide 20 MG TAB PO SCH ×2 (08:35→20:53)
[2019-07-14] MEDS: Multivitamin W/ Minerals 1 TAB PO SCH (08:35)
--- NOTE | 2019-07-14 08:43 | PDOC.MOPN ---
Interval History: Pt feeling ok today, appetite slightly improved, current sitting at edge of bed eating breakfast. Has 1 diarrhea stool per day. No fevers, cough, and has improvement in SOB. No other complaints. - Vital Signs Vital Signs: Vital Signs (12 hours) Temp Pulse Resp BP Pulse Ox 07/14/19 07:59 98.6 F 97 20 152/77 H 94 L 07/14/19 07:50 94 L 07/14/19 00:41 94 L Weight Admit Weight 141 lb 1.6 oz Weight 143 lb 3.2 oz Most Recent Monitor Data Heart Rate from ECG 91 NIBP 132/69 NIBP BP-Mean 90 Respiration from ECG 37 SpO2 94 - Physical Exam General: Alert, Oriented x3, Cooperative HEENT: EOMI Lungs: Normal air movement Cardiovascular: Regular rate Neurological: Cranial nerves 3-12 NL Psych/Mental Status: Mood NL - Labs Result Diagrams: 07/14/19 06:03 07/14/19 03:30 Lab results: Laboratory Results - last 24 hr 07/14/19 06:03: WBC 9.5, RBC 2.76 L, Hgb 9.2 L, Hct 26.5 L, MCV 95.8, MCH 33.2 H , MCHC 34.6, RDW 14.9 H, Plt Count 100 L, MPV 8.0, Neutrophils % (Manual) 97 H, Lymphocytes % (Manual) 3 L, Hypochromia SLIGHT = 6-15 cells, Plt Morphology Comment Appears Decreased L 07/14/19 03:30: Sodium 128 L, Potassium 5.1, Chloride 100, Carbon Dioxide 19 L, Anion Gap 14, BUN 25, Creatinine 0.64 L, Estimated GFR (MDRD) Greater than 90, Glucose 89, Calcium 8.2 07/13/19 06:39: WBC 18.5 H, RBC 2.76 L, Hgb 9.0 L, Hct 26.6 L, MCV 96.5, MCH 32.6 H, MCHC 33.8, RDW 15.0 H, Plt Count 110 L, MPV 8.4, Neutrophils % (Manual) 97 H, Lymphocytes % (Manual) 2 L, Monocytes % (Manual) 1, Hypersegmented Neuts SLIGHT, Plt Morphology Comment Appears Decreased L A/P - Problem (1) Brain metastasis Current Visit: Yes Code(s): C79.31 - SECONDARY MALIGNANT NEOPLASM OF BRAIN Status: Acute (2) Small cell lung cancer Current Visit: Yes Code(s): C34.90 - MALIGNANT NEOPLASM OF UNSP PART OF UNSP BRONCHUS OR LUNG Status: Acute - Plan Plan: C1D7 of chemo encourage increase PO intake cont PT, f/u recs regarding discharge to rehab f/u in clinic for cycle 2 of chemotherapy, plan to add Tecentriq
--- NOTE | 2019-07-14 12:21 | PDOC.HOSPP ---
- Subjective Encounter Date: 07/14/19 Encounter Time: 09:30 Subjective: pt seen and explained the plan for rehab. will dc parra and voiding trial. onc note reviewed. wbcs count improved dramatically. - Objective Vital Signs & Weight: Vital Signs (12 hours) Temp Pulse Resp BP Pulse Ox 07/14/19 07:59 98.6 F 97 20 152/77 H 94 L 07/14/19 07:50 94 L 07/14/19 00:41 94 L Weight Admit Weight 141 lb 1.6 oz Weight 143 lb 3.2 oz Most Recent Monitor Data Heart Rate from ECG 91 NIBP 132/69 NIBP BP-Mean 90 Respiration from ECG 37 SpO2 94 I&O: 07/13/19 07/14/19 07/15/19 06:59 06:59 06:59 Intake Total 2110 660 Output Total 3784 6469 9880 Balance -2840 -5190 -2375 Result Diagrams: 07/14/19 06:03 07/14/19 03:30 Hospitalist ROS - Medication Medications: Active Medications Generic Name Dose Route Start Last Admin Trade Name Freq PRN Reason Stop Dose Admin Furosemide 20 mg 07/11/19 09:00 07/14/19 08:35 Lasix PO 20 mg BID RAGHAV Administration Amino Acids/Electrolytes/Dextrose 1,000 mls @ 75 mls/hr 07/08/19 12:30 01:52 Clinimix E 4.25/5 IV 1,000 mls 1230 RAGHAV Administration Piperacillin Sod/Tazobactam 100 mls @ 200 mls/hr 07/12/19 12:30 07/14/19 11: 53 Sod 3.375 gm/ Sodium Chloride IVPB 100 mls Q8H RAGHAV Administration Iron/Minerals/Multivitamins 1 tab 07/06/19 09:00 07/14/19 08:35 Theragran M PO 1 tab DAILY RAGHAV Administration Melatonin 6 mg 07/05/19 23:26 07/13/19 23:45 Melatonin PO 6 mg HS PRN Administration Insomnia Pegfilgrastim-jmdb 6 mg 07/10/19 12:00 07/11/19 16:54 Fulphila SQ 6 mg WILLCALL RAGHAV Administration Sodium Chloride 10 ml 07/07/19 22:45 07/08/19 04:57 Flush - Normal Saline IVF 10 ml PRN PRN Administration Saline Flush Tamsulosin HCl 0.4 mg 07/06/19 21:00 07/13/19 20:01 Flomax PO 0.4 mg HS RAGHAV Administration - Exam General Appearance: NAD, awake alert, ill appearing Eye: PERRL ENT: normocephalic atraumatic Neck: supple Heart: RRR Respiratory: normal chest expansion Gastrointestinal: soft, normal bowel sounds Extremities - other findings: pitting edema near ankles Hosp A/P - Plan workup so far CT abdomen: extensive mets in liver ,bilateral adrenals, extensive malignant lymphadenopathy of the upper abdomen and retroperitoneal region. Small amount of hemorrhage mixed with ascites. Small right pleural effusion and mild anasarca. Small pericardial effusion. Gallstones within the gallbladder Chest X ray: fullness of right paratracheal region. Nodule/mass in the left upper lobe incompletely evaluated CTA chest: no PE, moderate pericardial effusion. Multiple live rmets and met in left adrenal gland. Extensive mediastinal LAD. Spiculated mass left upper lobe. US abdomen: small amount of ascites, not warranting paracentesis. Gallstones, small fluid around gallbladder. + [place] sign MRI Brain: several faint, patchy ill defined small foci of enhancement in the bilateral cerebellar hemispheres and one in the cerebellar vermis. Possibilities include leptomeningeal metastases in the posterior fossa versus vasculitis. ECHO: small pericardial effusion. EF 60-65%, mild TR, trace MR Bone scan: no metastases CT neck: extensively moderately severe malignant metastatic mediastinal and right supraclavicular LAD with impingement on recurrent laryngeal nerve. Left upper lobe pulmonary mass. 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 WBC downtrending today - bone scan done 07/06 shows no bone metastases - MRI brain 07/06 shows metastases leptomeningeal versus vasculitis. Patient denies headaches - pt started on chemotherapy 07/08. The patient to get his last dose today #Acute hypoxic respiratory failure secondary to lung cancer, pericardial effusion - resolved - CTA chest showed no PE but moderate pericardial effusion. He received 40 mg IV lasix 07/06. He also was started on vancomycin and zosyn on admission due to hypotension/lactic acidosis . Blood cultures negative. ECHO shows only mild pericardial effusion and essentially unremarkable - continue oral augmentin for few more days---------->d/t high wbcs, changed back to zosyn -continue lasix 20 mg bid - on prednisone 10 mg, will d/c from today Physical deconditioning -PT rec- rehab Hoarse voice - CT neck shows no laryngeal cancer Peripheral edema - continue lasix 20 mg bid #Transaminitis #Ascites - CT abdomen showing worsening metastases in the abdomen, adrenal, liver. LFTS elevated. Liver biopsy 06/29 consistent with metastatic small cell cancer. Original CT showing some hemorrhage and moderate ascites, repeat CT scan 07/05 shows stable ascites. Paracentesis not done because no significant fluid to tap - US RUQ showed gallstones, unlikely cholecystitis per GI with normal bili - LFTS stable. #Anemia , stable - B12 and folate normal Hypernatremia - resolved #Hypotension - resolved with albumin. Will discontinue prednisone Leukocytosis Post obstructive pneumonia RLL pneumonia --aidan neg but wbcs jumped last 2 days - CXR shows new RLL opacity, pl effusion and hIwness on the left and medial LAD - all cw cancer and poss post obstructive pneumonia - pt had diarrhea - will stop augmentin - abd exam no sign of abnormality - low threshold -- may need CT abdomen if he has more diarrhea - switched to IV zosyn for now until wbcs normalizes. -off vanc -CT abdomen on - free fluid-ascites. --keep toxic megacolon in diff dx, as high wbcs, and now diarr - pending cdiff. -->-did not do it as no BM on . - dt/ wbcs keep trending up, will repeat the CT abd - to make sure no other abn.. pt is overall declining. - placed palliative consult. plan to continue the palliative chemo in [address] Ocampo's clinic. 4th CT abd report reviewed B/l increasing plueral effusion Hemorrhage of the mets at R liver lobe -d/w Dr. Ocampo. -though pt is currently stable, high risk for hemodynamic instability. -currently 94% in RA - talk to Dr. Gill. Disposition: d/c to rehab when more stable. full code
--- NOTE | 2019-07-14 15:27 | PDOC.MOPN ---
Interval History: Patient doing well. less SOB. - Vital Signs Vital Signs: Vital Signs (12 hours) Temp Pulse Resp BP Pulse Ox 07/14/19 07:59 98.6 F 97 20 152/77 H 94 L 07/14/19 07:50 94 L Weight Admit Weight 141 lb 1.6 oz Weight 143 lb 3.2 oz Most Recent Monitor Data Heart Rate from ECG 91 NIBP 132/69 NIBP BP-Mean 90 Respiration from ECG 37 SpO2 94 - Physical Exam General: Alert, Oriented x3, No acute distress HEENT: Atraumatic, PERRLA, EOMI, Mucous membr. moist/pink Lungs: Clear to auscultation, Normal air movement Cardiovascular: Regular rate, Normal S1, Normal S2, No murmurs, Gallops, Rubs Abdomen: Normal bowel sounds, Soft, No tenderness, No hepatospenomegaly, No masses Skin: No rashes, No breakdown, No significant lesion Neurological: Normal speech - Labs Result Diagrams: 07/14/19 06:03 07/14/19 03:30 Lab results: Laboratory Results - last 24 hr 07/14/19 06:03: WBC 9.5, RBC 2.76 L, Hgb 9.2 L, Hct 26.5 L, MCV 95.8, MCH 33.2 H , MCHC 34.6, RDW 14.9 H, Plt Count 100 L, MPV 8.0, Neutrophils % (Manual) 97 H, Lymphocytes % (Manual) 3 L, Hypochromia SLIGHT = 6-15 cells, Plt Morphology Comment Appears Decreased L 07/14/19 03:30: Sodium 128 L, Potassium 5.1, Chloride 100, Carbon Dioxide 19 L, Anion Gap 14, BUN 25, Creatinine 0.64 L, Estimated GFR (MDRD) Greater than 90, Glucose 89, Calcium 8.2 Status: lab reviewed by me A/P - Problem (1) Small cell lung cancer Current Visit: Yes Code(s): C34.90 - MALIGNANT NEOPLASM OF UNSP PART OF UNSP BRONCHUS OR LUNG Status: Acute (2) Brain metastasis Current Visit: Yes Code(s): C79.31 - SECONDARY MALIGNANT NEOPLASM OF BRAIN Status: Acute (3) Acute respiratory failure Current Visit: No Code(s): J96.00 - ACUTE RESPIRATORY FAILURE, UNSP W HYPOXIA OR HYPERCAPNIA Status: Acute - Plan Plan: Ok to go to Rehab Next treatment due 07/28/19 Follow-up outpatient
[2019-07-14] MEDS: Tamsulosin HCl 0.4 MG CAP PO SCH (20:53)
--- NOTE | 2019-07-14 21:55 | CON ---
DATE OF CONSULTATION: 07/14/2019 CONSULTING PHYSICIAN: Hospitalist Group. REASON FOR CONSULTATION: Pleural effusions. HISTORY OF PRESENT ILLNESS: The patient is a 69-year-old male who was admitted to the hospital on 07/06/2019. He undergone a liver biopsy on 06/30/2019 for a liver mass and was found to have hemorrhage into the lesion afterward. The pathology report from this specimen demonstrated metastatic small cell carcinoma, presumably of pulmonary origin. During this hospitalization, he has undergone his first round of chemotherapy. His sister reports that he has done well. He has had some leg swelling. He says he is very minimally short of breath. He has been seen by Dr. Braden earlier in this hospitalization for additional recommendations. PHYSICAL EXAMINATION: VITAL SIGNS: Temperature 98.6, pulse 97, respirations 20, O2 sat 94% on room air, and blood pressure 150/77. HEENT: Remarkable for alopecia. NECK: No adenopathy or JVD. LUNGS: Slightly diminished breath sounds at both bases, but fairly good air movement. CARDIAC: S1 and S2. Regular. ABDOMEN: Soft. EXTREMITIES: Pedal edema. LABORATORY DATA: White blood cell count 9.5, hematocrit 26.5, and platelet count 100. Sodium 128, potassium 5.1, chloride 100, CO2 of 19, BUN 25, creatinine 0.6, and glucose 89. I reviewed the CT scan shows small bilateral effusions. Chest x-ray did not show much in way of effusions. ASSESSMENT: Effusions likely secondary to hypoalbuminemia, chemotherapy or perhaps a small cell lung cancer. Given the minimal degree, I would not be aggressive in tapping at this time. RECOMMENDATIONS: Watchful waiting. Follow up with Dr. Braden as outpatient for reimaging in several weeks. Job ID: [id number]
[2019-07-15] MEDS: D5W-AA 4.25% with LYTES 1,000 ML IV SCH (04:37)
[2019-07-15] MEDS: Piperacillin/Tazobactam 3.375 GM in Sodium Chloride 0.9% 100 ML IVPB SCH ×2 (04:37→12:04)
[2019-07-15 06:57] LABS: #Lymphocytes 0.4 thou/uL (1.20-3.40); %Basophils 1.5 % (0.0-1.0); %Eosinophils 0.4 % (0.0-10.0); %Lymphocytes 26.8 % (21.0-51.0); %Monocytes 0.4 % (0.0-10.0); Hemoglobin 9.9 g/dL (14.0-18.0); Mean Corpuscular HGB CONC 33.5 g/dL (32.0-36.0); Mean Corpuscular Hemoglobin 32.3 pg (27.0-31.0); Mean Corpuscular Volume 96.4 fL (78.0-98.0); Mean Platelet Volume 8.5 fL (7.4-10.4); Platelet Count 89 thou/uL (130-400); RBC Distribution Width 14.7 % (11.5-14.5); Red Blood Cell (RBC) Count 3.06 mill/uL (4.70-6.10); White Blood Cell (WBC) Count 1.4 thou/uL (4.8-10.8)
[2019-07-15 07:14] LABS: Anion Gap 14 mmol/L (10-20); BUN (Urea Nitrogen) 23 mg/dL (8.4-25.7); Calc. Creatinine Clearance 96 mL/min (70-130); Calcium 8.1 mg/dL (7.8-10.44); Carbon Dioxide 20 mmol/L (23-31); Chloride 97 mmol/L (98-107); Estimated GFR-MDRD Greater than 90; Glucose 98 mg/dL (80-115); Potassium 4.3 mmol/L (3.5-5.1); Sodium 127 mmol/L (136-145)
[2019-07-15] MEDS: Multivitamin W/ Minerals 1 TAB PO SCH (08:33)
[2019-07-15 09:00] VITALS: BP 139/82; TEMP 97.4
--- NOTE | 2019-07-15 09:19 | PRG ---
DATE OF SERVICE: 07/15/2019 SUBJECTIVE: Parul Ojeda is a 69-year-old gentleman, who reconsulted yesterday for apparently a pleural effusion. When I arrived in the room, he denies any difficulty breathing. OBJECTIVE: VITAL SIGNS: His temperature is 98, pulse 109, respirations 18, saturations 96% on room air, blood pressure . CHEST: Decreased breath sounds without any wheezing. CARDIAC: Normal S1 and S2. No gallops. ABDOMEN: No masses. LABORATORY DATA: Sodium is 127, has been decreasing for several days, it is probably secondary to his diuretic. Dr. Gill saw him yesterday and agreed that effusion is not enough to be tapped IMPRESSION: 1. Bilateral pleural effusion, small, asymptomatic. 2. Metastatic small cell cancer, on chemotherapy. 3. Hyponatremia. I would clearly discontinue his Lasix. His edema and swelling are all due to low albumin, stasis. He is going to have ongoing hyponatremia, if we do not do that, it is going to be worse. I do not know why he is on antibiotic as all his cultures are negative. I would discontinue his antibiotic . He can be followed up on outpatient basis. Job ID: [id number]
[2019-07-15] MEDS ORDERED: NS 0.9% w/ 20 MEQ KCL 1,000 ML/1,000 ML BAG IV SCH (09:30)
[2019-07-15 10:52] LABS: Hemoglobin 9.6 g/dL (14.0-18.0); Mean Corpuscular HGB CONC 33.2 g/dL (32.0-36.0); Mean Corpuscular Volume 96.5 fL (78.0-98.0); Mean Platelet Volume 8.5 fL (7.4-10.4); Platelet Count 84 thou/uL (130-400); RBC Distribution Width 14.6 % (11.5-14.5); Red Blood Cell (RBC) Count 2.99 mill/uL (4.70-6.10); White Blood Cell (WBC) Count 1.2 thou/uL (4.8-10.8)
[2019-07-15 11:21] LABS: Band 12 % (5-11); Lymphocytes 48 % (21-51); MDiff Complete? YES; Neutrophil 40 % (42-75); Ovalocytes SLIGHT = 2-5 cells (100X) (0-1/hpf); Poikilocytosis SLIGHT = 6-15 cells (100X) (0-5/hpf)
--- NOTE | 2019-07-15 17:05 | DIS ---
DATE OF ADMISSION: 07/05/2019 DATE OF DISCHARGE: 07/15/2019 DISCHARGE DIAGNOSES: 1. Metastatic small cell lung cancer to the liver, brain, abdomen, and renal. 2. Acute hypoxic respiratory failure secondary to lung cancer and mild pericardial effusion. 3. Peripheral edema. 4. Transaminitis secondary to metastatic liver disease. 5. Ascites, as above. 6. Anemia of chronic disease/cancer. 7. Hypernatremia that is resolved. 8. Postobstructive pneumonia. 9. Right lower lobe pneumonia. PERTINENT IMAGE FINDIN. CT of the abdomen done on July 05 as well as on the showed worsening metastasis in the abdomen, adrenal, and liver area from lung cancer. He also has bilateral pleural effusion, hemorrhagic in the right liver lobe. 2. Ultrasound of the right upper quadrant showed gallstones. 3. CT angiogram showed no pulmonary embolism. Has moderate pericardial effusion. 4. MRA of the brain showed several faint patchy ill-defined small foci of enhancement in the cerebellar hemisphere and in the cerebellar vermis. 5. Echo done showed small pericardial effusion. EF 65% with mild tricuspid and mitral regurgitation. Bone scan did not show any metastasis. 6. CT of the neck showed extensive severe malignant metastatic mediastinal as well as right supraclavicular lymphadenopathy, which is impinging on recurrent laryngeal nerve and left upper lobe pulmonary mass and right pleural effusion. CONSULT: With Dr. Ocampo. DISCHARGE MEDICATIONS: 1. Aspirin 81 mg daily. 2. Lasix 20 mg twice a day. 3. Multivitamin one tablet daily. 4. Potassium chloride 10 mEq p.o. daily. 5. Flomax 0.4 mg bedtime. PHYSICAL EXAMINATION: VITAL SIGNS: On the day of discharge, temperature 98.6, pulse is 100, saturating 20% on room air, and blood pressure is 139/82. GENERAL: He is sitting comfortably in the bed. He is on room air. No respiratory distress. CARDIOVASCULAR: Regular rate and rhythm without murmurs, rubs, or gallops. LUNGS: With anterior auscultation. Did not reveal any adventitious lung sounds. HOSPITAL COURSE: Please review the H and P and daily progress notes for more details. Briefly, 69-year-old male presented with abdominal pain, found to be hypotensive and responded well with bolus normal saline. He also had elevated leukocytosis that resolved over the time. His blood and urine cultures were negative. C difficile was negative. Started with broad-spectrum antibiotic with vancomycin and Zosyn and transitioned to Augmentin and that is also completed. He had intermittent leukocytosis that is resolved. The patient had a couple of episodes of diarrhea and C difficile is negative. He has some increasing pleural effusion. This has been brought to the attention of conduit reamer operator and they felt not necessary for any aggressive intervention, but continue close monitoring for now. He will follow up with Dr. Braden as an outpatient for reimaging in few weeks. He will be continuing with chemo treatment. The next one is due in July 27 and he will follow up with [facility]. He is hemodynamically stable to transfer to the rehab. DISCHARGE INSTRUCTIONS: Activity as tolerated. Healthy-heart diet. Follow up with Dr. Ocampo on July 27. Follow up with Dr. Braden, conduit reamer operator in 2 to 3 weeks to repeat the CT of the chest to assess the extent of the pleural effusion. TIME SPENT: Discharge time took over 30 minutes. Job ID: [id number] MTDD
--- NOTE | 2019-07-16 06:17 | PQF ---
KENIA THOMPSON SOUNDARI [id number] CLINICAL DOCUMENTATION CLARIFICATION FORM: POST DISCHARGE Addendum to original discharge summary date: ____ Late entry note date: __ DATE:07/16/2019 ATTN:Penny Ramirez Please exercise your independent, professional judgment in responding to the clarification form. Clinical indicators are provided on the bottom of this form for your review In your clinical opinion based on clinical findings below, can you please identify the condition as the reason for Inpatient admitted if due to: Please check appropriate box(s): [ ] Sepsis [ x] Lung Cancer [ x ] Metastatic Liver Cancer [ ] Other diagnosis [ ] Unable to determine For continuity of documentation, please document condition throughout progress notes and discharge summary. Thank You. CLINICAL INDICATORS - SIGNS / SYMPTOMS / LABS Laboratory 07/04 WBC 12.9, Plt count 180, Neutrophils 91.0, Lymphocytes 5.3, Lactic acid 5.3 Blood culture 07/04 No growth in 5 days Vital signs 07/04 BP 73/56, Pulse 109, Resp 25, Temp 97.5 ED notes p10 07/04 Pt hypotensive upon arrival. Lactic acid was over 5. He meets criteria for septic shock ED notes p10 07/04 Septic shock of unknown source H&P p1 07/04 Dr Medellin recently underwent a liver biopsy on 06/29, presents to the hospital with complaints of worsening abdominal pain and increased abdominal distention H&P p2 07/04 Dr Medellin Sepsis, pt has elevated leukocytosis. He was hypotensive. 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 Discharge summary p1 07/14 Metastasis to brain, abdomen and renal Discharge summary p1 07/14 Ascites Discharge summary p1 07/14 Anemia of chronic disease/cancer Discharge summary p1 07/14 Pneumonia Discharge summary 07/14- Acute hypoxic respiratory failure TREATMENTS: MAY 13 IV Zosyn 3.375mg MAY 13 IV Maxipime 2gm MAY 13 IVF NS 1L MAY 13 IV Solucortef 50 mg MAY 13 IV Carboplatin 428 mg MAY 13 IV Decamethasone 51 mls MAY 13 Augmentin 875 mg Blood culture 07/04 CT abdomen 07/04 Chest X-ray 07/04 Abdominal ultrasound 07/04 Respiratory consult 07/05 Miles Hawthorne (This form is maintained as a part of the permanent medical record) 2014 [employer]. All Rights Reserved [email or web address]
== END 2019-07-15 15:47 | DRG 180 ==
LOC: ERS 16:43 → IMCU/EMU 22:16 → ONC 07-07 17:04
PROVIDERS: ADMIT Family Medicine; ATTEND Internal Medicine
DX: C34.12 Malignant neoplasm of upper lobe, left bronchus or lung (principal); J96.01 Acute respiratory failure with hypoxia; J18.8 Other pneumonia, unspecified organism; A41.9 Sepsis, unspecified organism; K66.1 Hemoperitoneum; C78.7 Secondary malignant neoplasm of liver and intrahepatic bile duct; C79.31 Secondary malignant neoplasm of brain; C79.00 Secondary malignant neoplasm of unspecified kidney and renal pelvis; C79.89 Secondary malignant neoplasm of other specified sites; I31.3 Pericardial effusion (noninflammatory); R18.0 Malignant ascites; E87.0 Hyperosmolality and hypernatremia; E87.2 Acidosis; C79.72 Secondary malignant neoplasm of left adrenal gland; C79.71 Secondary malignant neoplasm of right adrenal gland; J44.0 Chronic obstructive pulmonary disease with (acute) lower respiratory infection; Z68.1 Body mass index [BMI] 19.9 or less, adult; E87.1 Hypo-osmolality and hyponatremia; J90 Pleural effusion, not elsewhere classified; K91.840 Postprocedural hemorrhage of a digestive system organ or structure following a digestive system procedure; Z51.5 Encounter for palliative care; D63.0 Anemia in neoplastic disease; E87.6 Hypokalemia; R49.0 Dysphonia; K80.80 Other cholelithiasis without obstruction; I08.1 Rheumatic disorders of both mitral and tricuspid valves; R63.0 Anorexia; I10 Essential (primary) hypertension; R79.89 Other specified abnormal findings of blood chemistry; Z90.49 Acquired absence of other specified parts of digestive tract; Z87.891 Personal history of nicotine dependence; Z79.899 Other long term (current) drug therapy; Z79.82 Long term (current) use of aspirin; Y84.8 Other medical procedures as the cause of abnormal reaction of the patient, or of later complication, without mention of misadventure at the time of the procedure
CPT/HCPCS: 36415; 36416; 51702; 70491; 70553; 71045; 71275; 74150; 74177; 76705; 78306; 80048; 80053; 80202; 81001; 81003; 82274; 82533; 82553; 82607; 82746; 83605; 83735; 84484; 85025; 85027; 85610; 85730; 86850; 86900; 86901; 87040; 87086; 87324; 87449; 93005; 93306; 93970; 96361; 96365; 96366; 96368; A9503; A9579; J0692; J1100; J1720; J1940; J2469; J2543; J3370; J3480; J3490; J7030; J7050; J7512; J9045; J9181; P9047; Q5108; Q9967

== ENCOUNTER 2019-07-20 05:30 | Inpatient (IN) | payer MEDICARE, OTHER ==
[2019-07-20 06:31] LABS: ALT (SGPT) 46 U/L (8-55); AST (SGOT) 37 U/L (5-34); Albumin 2.9 g/dL (3.4-4.8); Alkaline Phosphatase 118 U/L (40-110); Anion Gap 16 mmol/L (10-20); BUN (Urea Nitrogen) 28 mg/dL (8.4-25.7); Bilirubin, Total 1.2 mg/dL (0.2-1.2); Calc. Creatinine Clearance 0 mL/min (70-130); Calcium 8.9 mg/dL (7.8-10.44); Carbon Dioxide 23 mmol/L (23-31); Chloride 108 mmol/L (98-107); Estimated GFR-MDRD Greater than 90; Globulin 3.2 g/dL (2.4-3.5); Glucose 91 mg/dL (80-115); Potassium 3.7 mmol/L (3.5-5.1); Protein, Total 6.1 g/dL (5.8-8.1); Sodium 143 mmol/L (136-145)
[2019-07-20] MEDS ORDERED: Cefepime 2 GM VIAL ONE (06:39)
[2019-07-20 06:54] LABS: CKMB 0.7 ng/mL (0-6.6)
[2019-07-20 07:02] LABS: Hemoglobin 9.2 g/dL (14.0-18.0); Mean Corpuscular HGB CONC 32.9 g/dL (32.0-36.0); Mean Corpuscular Hemoglobin 31.8 pg (27.0-31.0); Mean Corpuscular Volume 96.6 fL (78.0-98.0); Mean Platelet Volume 9.1 fL (7.4-10.4); Platelet Count 59 thou/uL (130-400); RBC Distribution Width 15.3 % (11.5-14.5); Red Blood Cell (RBC) Count 2.89 mill/uL (4.70-6.10)
[2019-07-20] MEDS ORDERED: Vancomycin 1 GM/200 ML BAG ONE (07:13)
[2019-07-20 07:15] LABS: Anisocytosis SLIGHT = 6-15 cells (100X) (0-5/hpf); Band 32 % (5-11); Lymphocytes 48 % (21-51); MDiff Complete? YES; Metamyelocyte 8 % (0-0); Monocytes 12 % (0-10); Nucleated RBC 3 % (0); Platelet Morphology Comment Appears Decreased; White Blood Cell (WBC) Count 0.7 thou/uL (4.8-10.8)
--- NOTE | 2019-07-20 07:49 | RAD ---
Exam: Chest one view HISTORY:Lung cancer. Comparison: 07/19/2019 FINDINGS: Cardiac silhouette: Normal Aorta: Unremarkable Pulmonary vessels: Normal Costophrenic angles: Right-sided pleural effusion LUNGS: Interval worsening of pleural and parenchymal changes in the right lung base. Pneumothorax: None Osseous abnormalities: None IMPRESSION: Worsening pleural and parenchymal changes in the right lung base
--- NOTE | 2019-07-20 08:09 | CT ---
PRELIMINARY REPORT/DIRECT RADIOLOGY/EMERGENCY AFTER HOURS PROCEDURE EXAM: CTA Chest with Intravenous Contrast CLINICAL HISTORY: ER 13...INCREASED SOB HX LUNG CA TECHNIQUE: Axial CTA images of the chest with intravenous contrast. MIP reconstructed images were cre ated and reviewed. CONTRAST: With; ISOVUE 370,100mL COMPARISON: None provided. FINDINGS: PULMONARY ARTERIES There is no intraluminal filling defect suspicious for PE. AORTA No thoracic aortic aneurysm or dissection. LUNGS Emphysema with multiple bullae at the lung apices. 4.3 cm spiculated nodule at the left lung a pex. Reticular thickening and solid opacities at the posterior right middle and lower lobe as well as patchy opacity in the left lower lobe. PLEURAL SPACES Small right pleural effusion. HEART AND MEDIASTINUM Coronary artery calcifications. Small pericardial effusion. LYMPH NODES Enlarged lymph nodes in the AP window measure up to 1.3 cm in short axis subcarinal lymp h nodes measure up to 1.2 cm in short axis right hilar lymph node measures up to 1.8 cm in short axis . The tylor hepatis measures 1.5 cm in short axis. BONES Degenerative changes of the spine. CHEST WALL AND UPPER ABDOMEN Multiple large hypodense lesions within the liver 9.9 cm hypodensity in the right hepatic lobe with central 4.0 cm hyperdensity. Additional lesions are diffusely hypodense. Nodular thickening of the adrenal glands. IMPRESSION: No pulmonary embolism. No thoracic aortic aneurysm or dissection. Reticular thickening a nd solid opacities at the posterior right middle and lower lobe as well as patchy opacity in the left lower lobe. Small right pleural effusion. Findings are concerning for pneumonia. Emphysema. 4.3 cm spiculated nodule at the left lung apex suspicious for neoplasm. Comparison with p rior studies is recommended. Mediastinal and right hilar lymphadenopathy which may be reactive, alth ough metastatic lymph nodes are not excluded. Multiple large hypodense hepatic masses are suspicious for metastatic disease. Comparison with prior studies and/or dedicated imaging is recommended for f urther evaluation. ELECTRONICALLY SIGNED BY: Maya Franklin MD July 20, 2019 7:02:29 AM CDT FINAL REPORT EMERGENT AFTER HOURS CT PULMONARY ANGIOGRAM WITH IV CONTRAST AND 3D MIP RECONSTRUCTIONS: IMPRESSION: Agree with the preliminary interpretation. With respect to the 07/05/2019 examination, there has been development of consolidation involving the right middle lobe and right lower lobe as well as patchy ground-glass opacity within the left lower lobe compatible with pneumonia. Noncalcified left upper l obe pulmonary nodules seen on the prior examination immediately inferior to stable left upper lobe sp iculated mass are no longer evident. There is material within the right main bronchus and bronchus i ntermedius as well as basilar right bronchi and thickening of the basilar bronchi suggesting aspirati on. Additional significant interval change with respect to the prior examination is not apparent. POS: JENNIFER
[2019-07-20 09:07] LABS: Bacteria/HPF None Seen HPF (None Seen); Bilirubin Negative (Negative); Blood, Urine Trace (Negative); Clarity Turbid (Clear); Glucose, Urine (Dipstick) Normal (Negative); Leukocyte Negative Leu/uL (Negative); Nitrite Negative (Negative); Protein, Urine (Dipstick) 30 mg/dL (Neg-Trace); Squamous Epithelial 0-3 HPF (0-3); Urobilinogen Normal mg/dL (Less than 2)
[2019-07-20 09:09] VITALS: BMI 16.9
[2019-07-20] MEDS ORDERED: Iopamidol 370 76% 100 ML VIAL ONE (09:14)
[2019-07-20 10:11] LABS: Troponin I 0.025 ng/mL (< 0.028)
[2019-07-20] MEDS ORDERED: Acetaminophen 325 MG TAB PO PRN (10:47)
[2019-07-20] MEDS ORDERED: HYDROcodone/Acetaminophen 5/325 mg Tablet PO PRN (10:47)
[2019-07-20] MEDS ORDERED: Ondansetron PF 4 MG/2 ML Vial IVP PRN (10:47)
[2019-07-20] MEDS ORDERED: Ondansetron ODT 4 MG TAB PO PRN (10:47)
[2019-07-20] MEDS ORDERED: hydrALAZINE 20 MG/ML VIAL SLOW IVP PRN (10:47)
[2019-07-20] MEDS ORDERED: Pantoprazole 40 MG VIAL IVP SCH (11:00)
--- NOTE | 2019-07-20 11:39 | HP ---
PRIMARY CARE PHYSICIAN: Dr. Iraheta. CHIEF COMPLAINT: Shortness of breath. HISTORY OF PRESENT ILLNESS: The history of present illness is very limited as the patient is extremely weak and unable to give me a full history. Mr. 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 He was recently admitted to our facility for acute respiratory failure secondary to pneumonia. He was treated and discharged on July 14. He was discharged to a intermediate facility. He says that he noticed some swelling in his legs and when asked what other complaints he had, he kind of points to his chest, but then his voice kind of fades off, but it is reported that he was becoming more and more short of breath at the nursing facility and was found to be hypoxic, and was brought to the ER for evaluation. In the ER, he had a chest x-ray as well as a CT angiogram of the chest, both of which demonstrated worsening infiltrate in the right base. There was no evidence of pulmonary embolism. He is being admitted for further evaluation. He was also noted to be tachycardic, hypotensive and also has a pancytopenia and is being admitted for neutropenic sepsis. The patient even though he appears a bit confused, he knows what year it is and what month it is and where he is and is able to answer some questions appropriately. He was able to tell me he has a history of stage IV cancer and that is why he is in the hospital. However, getting the review of systems was more or less difficult as he appears to be just extremely weak and has a hard time processing and answering questions. Therefore, the review of systems was essentially unobtainable. PAST MEDICAL HISTORY: Taken from the history and physical dated July 05 and includes metastatic small-cell carcinoma of the lung stage IV with metastases to the liver. PAST SURGICAL HISTORY: He has had an appendectomy. ALLERGIES: NO KNOWN DRUG ALLERGIES. SOCIAL HISTORY: He is a former smoker. He quit in 2015 and also former alcohol use and he stopped drinking in 2011. CODE STATUS: He says he would like to be a full code. FAMILY HISTORY: Significant for hypertension. CURRENT MEDICATIONS: Taken from the records and includes 1. Aspirin 81 mg daily. 2. Multivitamin once daily. 3. MiraLAX 17 g daily. 4. Klor-Con 10 mEq daily. 5. Flomax 0.4 mg daily. PHYSICAL EXAMINATION: GENERAL: He is alert and oriented x3. However, he is extremely frail and weak and chronically ill appearing. VITAL SIGNS: Blood pressure was 89/45, heart rate 100, respiratory rate is ranging between 30 and 40. HEENT: Pupils are equal, round, and reactive. Extraocular muscles are intact. Sclerae anicteric. Poor dentition. Slightly dry mucous membranes. NECK: There is no adenopathy. No bruits. LUNGS: He has audible upper airway noise and rales at both bases. There is no wheezing. CARDIOVASCULAR: He has a normal S1, S2. I did not appreciate an S3 or S4. No murmurs, clicks, or rubs. ABDOMEN: Soft, nontender, and nondistended. Positive for bowel sounds. EXTREMITIES: He has severe muscle wasting on all of his extremities. There is trace edema. No calf tenderness. No joint effusions. NEUROLOGIC: He is moving all extremities. SKIN AND INTEGUMENT: He has significant ecchymosis on the left lower leg on the lateral aspect and also on the foot. I was able to palpate a dorsalis pedis pulse, but it was weak. LABORATORY DATA: White blood cell count 0.7, hemoglobin 9.2, hematocrit is 27.9, and platelet count is 59. Sodium 143, potassium 3.7, chloride is 108, CO2 is 23, BUN of 28, creatinine 0.82, glucose is 91. Troponin is 0.039. Urinalysis was significant for some trace blood and ketones, some hyaline casts. Chest x-ray as previously mentioned, there is a density in the right lower base. Heart size was normal. This is by my reading. ASSESSMENT: This is a pleasant 69-year-old gentleman, who is being admitted for acute respiratory distress with hypoxemia, worsening pneumonia, and neutropenic sepsis. This in the setting of advanced stage IV small cell carcinoma of the lungs. 1. For the respiratory failure and pneumonia, we will continue cefepime and vancomycin. Pulmonary and Critical Care has been consulted and we will also consult ID since he had a recent hospitalization and he is neutropenic and could potentially have opportunistic infections. 2. Neutropenic sepsis. I will go ahead and continue the IV antibiotics and once again consult ID given he is at risk for opportunistic infections. 3. Sepsis. He will be placed on fluid resuscitation and will continue to monitor his blood pressure and he may need some pressor support in the future. 4. Advanced cancer. We will consult his oncologist to aid in management and also to help with prognostication. Job ID: [id number]
--- NOTE | 2019-07-20 11:46 | CON ---
DATE OF CONSULTATION: 07/20/2019 This encompasses 50 minutes time, of that time, greater than 50% spent with the patient and/or on the patient's unit in the hospital. REASON FOR CONSULTATION: Sepsis. HISTORY OF PRESENT ILLNESS: This patient is a 69-year-old male, who was just in the hospital and discharged, I believe Sunday or Sunday of this past week. He presented last night with increasing shortness of breath. He had a CT scan performed, which showed infiltrate in the right middle lobe region of his chest. He has been put in rule out COVID status because he came in [facility] a [facility]. It should be noted on his last hospitalization, he was seen by us and evaluated for pleural effusions and hypoxemia. He was also seen by the Oncology Team for his lung cancer. I am not quite sure when his last treatment was, but he was scheduled for another one on 07/27. He is now profoundly neutropenic and thrombocytopenic. PAST MEDICAL HISTORY: 1. Lung cancer - small cell with metastasis. 2. Hypertension. PAST SURGICAL HISTORY: Appendectomy. FAMILY MEDICAL HISTORY: Remarkable for hypertension. SOCIAL HISTORY: Long-term smoker, also abused alcohol heavily. MEDICATIONS: Prior to admission; 1. MiraLAX. 2. Aspirin. 3. Tamsulosin. 4. Potassium. 5. Multivitamin. Current inpatient medications; 1. Cefepime. 2. Vancomycin. 3. Protonix. REVIEW OF SYSTEMS: Cannot be obtained secondary to his altered mental status. PHYSICAL EXAMINATION: VITAL SIGNS: His temperature is 93.5, heart rate 100, blood pressure 89/45, respiratory rate 32, and O2 saturation running in the 90s on 3 L. GENERAL: I find him disoriented and trying to remove his IV and monitoring equipment. HEENT: Bitemporal wasting present. Oropharynx is dry. NECK: No adenopathy or JVD. LUNGS: Fairly clear anteriorly. CARDIOVASCULAR: S1 and S2, regular. ABDOMEN: Soft and nontender. EXTREMITIES: No edema. LABORATORY DATA: White blood cell count is 0.7, hematocrit 37.9, and platelet count 59. Sodium 143, potassium 3.7, chloride 108, CO2 of 23, BUN 28, creatinine 0.8, glucose 91. Urinalysis showed 4 to [address] blood [address] His CT was reviewed and shows small effusions, the right middle lobe infiltrate. ASSESSMENT: 1. Neutropenic sepsis, presumably from pneumonia. 2. Small cell lung cancer. 3. Bilateral small effusions. PLAN: 1. He has been started on broad-spectrum IV antibiotics to include cefepime and vancomycin. 2. I am going to assume that he recently got steroids with his chemotherapy, so I will add some stress dose hydrocortisone. 3. Nebulization treatments once his COVID status comes back negative. 4. Dr. Mcdonald has consulted Infectious Disease for assistance. We will follow with you. Job ID: [id number]
[2019-07-20] MEDS ORDERED: Lactated Ringer's 1,000 ML IV SCH (12:15)
[2019-07-20] MEDS: Hydrocortisone Sod Succ/PF 100 mg/2 ml Vial IVP SCH ×2 (12:26→17:34)
[2019-07-20] MEDS: Cefepime 2 GM in Sodium Chloride 0.9% 100 ML IVPB SCH ×2 (12:27→21:52)
[2019-07-20] MEDS: Sodium Chloride 0.9% 1,000 ML IV SCH ×2 (12:27→17:34)
[2019-07-20 13:18] LABS: Troponin I 0.017 ng/mL (< 0.028)
[2019-07-20 19:24] VITALS: TEMP 95.7
[2019-07-20 19:27] LABS: SARS-CoV-2 MS2 Positive; SARS-CoV-2 N Gene Negative; SARS-CoV-2 S Gene Negative; SARS-CoV-2 orf1ab Negative
--- NOTE | 2019-07-20 20:39 | CON ---
DATE OF CONSULTATION: 07/20/2019 REASON FOR CONSULTATION: Possible pneumonia, neutropenia. HISTORY OF PRESENT ILLNESS: A 69-year-old with history of metastatic small cell lung cancer, who is a senior living resident and is receiving chemotherapy, I believe under Dr. Ocampo's supervision. The patient was recently in the hospital. He was discharged on July 14. The discharge diagnoses were metastatic small cell lung cancer, liver, brain, abdomen; hypoxic respiratory failure secondary to lung cancer; peripheral edema; transaminitis; ascites; and postobstructive pneumonia in the right side. The patient was discharged on Lasix, multivitamins, potassium, and Flomax. He was initially started on Zosyn and vanc and then transitioned to Augmentin for discharge planning, which was completed. He had leukocytosis, which resolved, had some diarrhea and C diff was negative. So now, he was sent here from the [facility] because of worsening dyspnea and tachypnea for the past few days before admission. This was associated with hypoxemia. He did have a cough, but no reported sputum production. He had a confusional state. Initial findings include BP was 80/52, pulse 112, O2 saturation 90% on 6 L nasal cannula, and temperature 98.4. On exam, the patient was then described as in no distress apparently and the lung exam described as clear breath sounds without wheezing. Heart exam with tachycardia. Abdomen was not tender and other findings on admission included white cell count 0.7, hemoglobin 9.2, MCV 96, and platelets 59,000. The previous WBC count was 0.3 on July 15, 1.2 on July 14, and 18.5 on July 12, so those are likely the results of chemotherapy administration. Also, bands were 32, lymphocytes 48%, metamyelocytes 8, nucleated RBCs 3. Chemistry shows sodium 143, potassium 3.7, creatinine 0.82 , AST 37, bilirubin 1.2, alkaline phosphatase 118, and albumin 2.9. Urinalysis with 4 to 6 wbc's. Microbiology is pending. COVID-19 PCR has been submitted and should be resulting very soon. Currently, Mr. Ojeda is in the ICU, C3, on isolation. He is confused. He does establish eye contact when his name is called. He does answer some questions. Specifically denied any pain. No dyspnea. I find it difficult to establish accuracy in his replies. He seems to say no to everything that I ask him. According to the nurses, he has a decubitus ulcer, stage II as described below. Other findings are described below as well in the physical exam section. PAST MEDICAL HISTORY: Includes small cell lung cancer with metastases to various organs including liver and brain, atrial fibrillation, cardiomyopathy, diverticulitis, peripheral vascular disease, hypertension, and hypothyroidism. SURGICAL HISTORY: Appendectomy. SOCIAL HISTORY: Resident at the [facility]. He has a DNAR order. He used to drink alcoholic beverages in the past and former smoker, although it states here that he is still smoking to this date, this is not possible to verify. ALLERGIES: NONE. FAMILY HISTORY: Noncontributory. CURRENT MEDICATIONS: 1. Cefepime. 2. Vancomycin. 3. Albuterol. 4. Meridian. 5. Hydrocortisone. 6. Zofran. 7. Pantoprazole. PHYSICAL EXAMINATION: VITAL SIGNS: T-max 96.6, blood pressure 82/49, pulse 98, respirations 33, and O2 saturation 95% with Venturi mask non-rebreathing. SKIN: Shows areas of petechiae in distribution of the anterior left lower extremity all the way to the foot. They go all the way to the gluteal region suggestive of dermatomal distribution. Those type of lesions are not present anywhere else. Peripheral IV access, does not have a port or a central line. Has a Quiñonez catheter in place. GENERAL: He is awake. Cachexia is noted. HEENT: Temporal wasting noted. Somewhat yellowish sclerae. Pupils are 2 mm and reactive. Oral cavity is quite dry. Quite a few teeth in place with expected acute decay. NECK: Supple. No jugular vein distention. LUNGS: Symmetric air entry and no obvious crackles or wheezing. HEART: S1 and S2. Diminished heart sounds. No murmurs. No S3. ABDOMEN: Soft, not distended or tender. No ascites. No bladder distention. No organomegaly. EXTREMITIES: No joint inflammatory activity. Pulses are 1+ in dorsalis pedis. Cap refill is normal. Toenails appear normal. Plantar responses are flexor. NEURO: He is confused and he will answer some questions, but of limited reliability. IMAGING STUDIES: We have a CT angio done today. This showed no evidence of pulmonary edema. There is emphysema. There is a 4.3 spiculated nodule, left lung apex. Solid opacities, posterior right middle and lower lobe and patchy opacity in the left lower lobe. A small right pleural effusion. Enlarged lymph nodes, subcarinal area and tylor hepatis. Multiple hypodense lesions in the liver up to 9.9 cm and another one 4 cm and few other one smaller in that. Nodular thickening, adrenal glands and there is a brain MRI from June this year with ill-defined small foci of enhancement in bilateral cerebellar hemispheres, atypical for metastases. Possibility of leptomeningeal metastases was considered versus vasculitis. ASSESSMENT: 1. Cardiomyopathy, hypertension, small cell lung cancer, chronic smoking, emphysema. Metastases to liver, may be adrenal, maybe brain and lymph nodes. 2. Chemotherapy with neutropenia. 3. Pneumonia with evidence of aspiration. DISCUSSION: His type of chemotherapy given for this sort of cancer usually is not associated with protracted neutropenia. So, in that regard, once the neutropenia resolves, then we should expect resolution of the pneumonia as well, as long as the COVID-19 is negative, which we expect. Evidently, the results should be ready soon and it will allow us to discontinue isolation precautions if test is negative and continue broad-spectrum antimicrobial coverage. The requirement for anaerobic coverage in patients with aspiration pneumonia has been found to be less and gram-negative coverage seems to be the more important component of therapy. The vancomycin is probably not necessary since the presence of methicillin-resistant Staphylococcus aureus in those types of processes is usually of low frequency. Regarding the lesions in the left lower extremity, these are likely dermatomal and probably residual from prior herpes zoster. Job ID: [id number] MTDD
[2019-07-20] MEDS ORDERED: Norepinephrine 8 MG/0.9% NS 250 ML ONE (23:26)
[2019-07-20] MEDS ORDERED: Norepinephrine 8 MG/0.9% NS 250 ML IVPB SCH (23:36)
[2019-07-20 23:39] LABS: Base Excess (BEa) -9.7 mEq/L (-2.0 to +3.0); Calcium, Ionized 1.21 mmol/L (1.12-1.30); Carboxyhemoglobin (COHb) 0.9 gm% (0.0-3.0); Hemoglobin (Hb) 9.1 g/dL (14.0-18.0); Potassium - ABG Lab 4.05 mmol/L (3.70-5.30)
[2019-07-20 23:50] LABS: CO2 Tension 126.1 mmHg (35.0-45.0); O2 Tension (PaO2) 50.2 mmHg (> 80.0); Puncture Site L BRACHIAL
[2019-07-20 23:51] LABS: ALV-art Gradient 148.675 (0-20)
[2019-07-21] MEDS ORDERED: Vancomycin 1 GM in Premix Bag 1 BAG IVPB SCH (08:00)
[2019-07-21] MEDS ORDERED: Pantoprazole 40 MG VIAL IVP SCH (09:00)
--- NOTE | 2019-07-22 05:09 | PQF ---
KENIA THOMPSON TONI MD [id number] CLINICAL DOCUMENTATION CLARIFICATION FORM: POST DISCHARGE Addendum to original discharge summary date: ____ Late entry note date: __ DATE:07/22/2019 ATTN: KRISHNA BOSWELL MD Please exercise your independent, professional judgment in responding to the clarification form. Clinical indicators are provided on the bottom of this form for your review Please check appropriate box(s): HEART FAILURE: A. TYPE: [ ] Systolic / HFrEF [X ] Diastolic / HFpEF [ ] Combined Systolic / Diastolic B. ACUITY [ ] Acute [ ] Acute on Chronic [ X ] Chronic [ ] Other diagnosis [ ] Unable to determine For continuity of documentation, please document condition throughout progress notes and discharge summary. Thank You. CLINICAL INDICATORS - SIGNS / SYMPTOMS / LABS - PMH: CHF-ED record, 07/19, Wilma Hutchinson MD - Worsening SOB- ED record, 07/19, Wilma Hutchinson MD - cardiovascular exam included findings of rate tachycardia-ED record, 07/19, Wilma Hutchinson MD - Worsening pleural and parenchymal changes in the right lung base--07/19, Chest x ray-Kyle Leonard MD RISKS: - PMH: HTN- ED record, 07/19, Wilma Hutchinson MD TREATMENTS: - Aspirin.PO-MAR, 06/27 (This form is maintained as a part of the permanent medical record) 2014 [employer]. All Rights Reserved [email or web address]
--- NOTE | 2019-07-22 05:32 | PQF ---
KENIA THOMPSON TONI MD [id number] CLINICAL DOCUMENTATION CLARIFICATION FORM: POST DISCHARGE Addendum to original discharge summary date: ____ Late entry note date: __ DATE: 07/22/2019 ATTN:KRISHNA BOSWELL MD Please exercise your independent, professional judgment in responding to the clarification form. Clinical indicators are provided on the bottom of this form for your review Please check appropriate box(s): [ X ] Pancytopenia due to Chemotherapy [ ] Pancytopenia not due to Chemotherapy [ ] Other diagnosis [ ] Unable to determine For continuity of documentation, please document condition throughout progress notes and discharge summary. Thank You. CLINICAL INDICATORS - SIGNS / SYMPTOMS / LABS - Hx of metastatic small cell lung cancer, who is skilled nursing resident and is receiving chemotherapy- Consult report, 07/19, Gianluca Celestin MD - Chemotherapy with neutropenia- Consult report, 07/19, Gianluca Celestin MD - His type of chemotherapy given for this sort cancer usually is not associated with protracted neutropenia-Consult report, 07/19, Gianluca Celestin MD - Neutropenic sepsis, presumably from pneumonia-Consult report, 07/19, Jairo Barker MD RISK FACTORS - Small cell lung cancer with metastases to liver and brain-Consult report, , Gianluca Celestin MD - Bilateral small effusions- Consult report, 07/19, Jairo Barker MD TREATMENT: - Chemotherapy-Consult report, 07/19, Gianluca Celestin MD - Vancomycin.IV-MAR, 07/19 (This form is maintained as a part of the permanent medical record) 2014 [employer]. All Rights Reserved Marlene [email or web address]
--- NOTE | 2019-07-22 05:43 | PQF ---
KENIA THOMPSON TONI MD [id number] CLINICAL DOCUMENTATION CLARIFICATION FORM: POST DISCHARGE Addendum to original discharge summary date: ____ Late entry note date: __ DATE: 07/22/2019 ATTN: KRISHNA BOSWELL MD Please exercise your independent, professional judgment in responding to the clarification form. Clinical indicators are provided on the bottom of this form for your review Please check appropriate box(s): [ X ] Acute Respiratory Failure: [ X ] with Hypoxia[ ] with Hypercapnia [ ] Acute On Chronic Respiratory Failure: [ ] with Hypoxia [ ] with Hypercapnia [ ] Acute Respiratory Failure due to: (etiology) [ ] Chronic Respiratory Failure only [ ] with Hypoxia [ ] with Hypercapnia [ ] Other diagnosis [ ] Unable to determine For continuity of documentation, please document condition throughout progress notes and discharge summary. Thank You. CLINICAL INDICATORS - SIGNS / SYMPTOMS / LABS - Pneumonia, COVID rule out, hypoxia- ED record, 07/19, Evangelina Dillon MD - Sat: 94L on 07/19, 93L on 07/19- Vital signs - recently admitted to our facility for acute respiratory failure sec to pneumonia- H&P, 07/19, Harry Schneider MD - Lungs: he has audible upper airway noise adn rales at both bases- H&P, 07/19 , Harry Schneider MD - For the respiratory failure and pneumonia- H&P, 07/19, Harry Schneider MD RISK FACTORS - Small cell carcinoma of the lungs- H&P, 07/19, Harry Schneider MD - Neutropenic sepsis- H&P, 07/19, Harry Schneider MD TREATMENTS: - Nasal Cannula- 07/19 - DuoNeb: 07/19 (This form is maintained as a part of the permanent medical record) 2014 [employer] All Rights Reserved [email or web address]
--- NOTE | 2019-07-22 05:57 | PQF ---
KENIA THOMPSON TONI MD [id number] CLINICAL DOCUMENTATION CLARIFICATION FORM: POST DISCHARGE Addendum to original discharge summary date: ____ Late entry note date: __ Date: 07/22/2019 ATTN: [id number] Please exercise your independent, professional judgment in responding to the clarification form. Clinical indicators are provided on the bottom of this form for your review Please check appropriate box(s): [ X] Protein Calorie Malnutrition: [ ] Mild [ X ] Moderate [ ] Severe [ ] Other Malnutrition (please specify) __ [ ] Underweight without malnutrition [ ] Cachexia [ ] Other diagnosis [ ] Unable to determine CLINICAL INDICATORS - SIGNS / SYMPTOMS / LABS - Cachexia is noted- Consult report,07/19, Fawad Hough MD - Calculated BMI: 16.9- FNS assessment, 07/19 - Albumin: 2.9L on 07/19, Total protein: 6.1- Laboratory, 07/19 - Neutropenic sepsis -consult report,07/19, Jairo Barker MD RISK FACTORS - Decubitus ulcer stage II- Consult report,07/19, Fawad Hough MD - Lung cancer-small cell with metastasis- Consult report,07/19, Jairo Barker MD TREATMENT: - Sodium chloride.IV- 07/19 Moderate Malnutrition (in acute illness) Energy Intake: <75% of estimated energy requirement for > 7 days Weight Loss: 1-2%/1 week; 5%/ 1 month; 7.5%/3 months Other: mild body fat loss; mild muscle mass loss; mild fluid accumulation; Severe Malnutrition (in acute illness) Energy Intake: < 50% of estimated energy requirement for > 5 days Weight Loss: >1-2%/1 week; >5%/1 month; >7.5%/3 months Other: moderate body fat loss; moderate muscle mass loss; moderate- severe fluid accumulation; measurably reduced aligner strength Moderate Malnutrition (in chronic illness) Energy Intake: <75% of estimated energy requirement for >1 month Weight Loss: 5%/1 month; 7.5%/3 months; 10%/6 months; 20%/1 year Other: mild body fat loss; mild muscle mass loss; mild fluid accumulation Severe Malnutrition (in chronic illness) Energy Intake: <75% of estimated energy requirement for >1 month Weight Loss: >5%/1 month; >7.5%/3 months; >10%/6 months; >20%/1 year Other: severe body fat loss; severe muscle mass loss; severe fluid accumulation ; measurably reduced aligner strength (This form is maintained as a part of the permanent medical record) 2014 [email or web address] All Rights Reserved [email or web address]
== END 2019-07-21 00:07 | disposition expired | DRG 871 ==
LOC: ERS 05:30 → CCU 08:47
PROVIDERS: ADMIT Internal Medicine; ATTEND Internal Medicine
PROC: 8E0ZXY6 Isolation (ICD-10-PCS; principal; 2019-07-20)
DX: A41.89 Other specified sepsis (principal); J18.9 Pneumonia, unspecified organism; D61.810 Antineoplastic chemotherapy induced pancytopenia; J96.01 Acute respiratory failure with hypoxia; C78.7 Secondary malignant neoplasm of liver and intrahepatic bile duct; C34.92 Malignant neoplasm of unspecified part of left bronchus or lung; C34.91 Malignant neoplasm of unspecified part of right bronchus or lung; J90 Pleural effusion, not elsewhere classified; C79.31 Secondary malignant neoplasm of brain; C79.89 Secondary malignant neoplasm of other specified sites; I42.9 Cardiomyopathy, unspecified; R64 Cachexia; C79.70 Secondary malignant neoplasm of unspecified adrenal gland; C77.9 Secondary and unspecified malignant neoplasm of lymph node, unspecified; Z68.1 Body mass index [BMI] 19.9 or less, adult; E44.0 Moderate protein-calorie malnutrition; I50.32 Chronic diastolic (congestive) heart failure; Z20.828 Contact with and (suspected) exposure to other viral communicable diseases; J43.9 Emphysema, unspecified; I48.91 Unspecified atrial fibrillation; E78.5 Hyperlipidemia, unspecified; R74.0 Nonspecific elevation of levels of transaminase and lactic acid dehydrogenase [LDH]; T45.1X5A Adverse effect of antineoplastic and immunosuppressive drugs, initial encounter; I73.9 Peripheral vascular disease, unspecified; D69.6 Thrombocytopenia, unspecified; L89.152 Pressure ulcer of sacral region, stage 2; F10.10 Alcohol abuse, uncomplicated; I11.0 Hypertensive heart disease with heart failure; E03.9 Hypothyroidism, unspecified; F17.210 Nicotine dependence, cigarettes, uncomplicated; I95.9 Hypotension, unspecified; Z79.01 Long term (current) use of anticoagulants; Z90.49 Acquired absence of other specified parts of digestive tract; Z87.01 Personal history of pneumonia (recurrent)
CPT/HCPCS: 36415; 71045; 71275; 81003; 81015; 82553; 82805; 83605; 84484; 87040; 87086; 87635; 93005; 96361; 96365; C9113; J0692; J1720; J3370; J3490; Q9967; U0003